=== PATIENT | female | born 1940 | race Caucasian/White ===

== ENCOUNTER → 2017-08-24 13:52 | Outpatient (CLI) | payer MEDICARE, OTHER, SELFPAY ==
--- NOTE | 2017-08-24 14:36 | BI_ITS ---
MAMMOGRAPHY - BILATERAL DIAGNOSTIC REASON FOR EXAM: Female, 76 years old. Prior left lumpectomy. PERTINENT HISTORY: Personal history of breast cancer. TECHNIQUE: Digital bilateral breast killian (3D mammographic acquisition) in the CC and MLO projections. 2-D mediolateral oblique (MLO) and craniocaudad (CC) views of both breasts were obtained. CAD: Full Field Digital Mammography with Computer Added Detection was performed. COMPARISON: Comparison is made with prior examination dated April 28, 2016. FINDINGS: Breast Composition: The breasts are extremely dense, which lowers the sensitivity of mammography. Stable calcifications in the upper outer quadrant of the right breast. Since prior study, the patient underwent resection of the calcifications in the upper medial portion of the right breast. No new cluster is seen. No other significant abnormalities are identified. BI/DIAG MAMM W/CAD, BILAT IMPRESSION: Status post left lumpectomy. No new calcification is seen. Stable appearance of the right calcifications. ASSESSMENT CATEGORY: BIRADS Category 2: Benign. A letter regarding these results will be sent to the patient by the facility within 30 days. Approximately 10% of breast cancers are not detected by mammography. A normal mammogram should not delay biopsy of a clinically suspicious abnormality. Electronically Signed: Zak Gutierrez MD at 15:41 EDT Tel [phone], Service support ,
== END ==
PROVIDERS: Family Provider Family Medicine; PCP Family Medicine; Visit Provider Surgery
DX: Z85.3 Personal history of malignant neoplasm of breast (principal)
CPT/HCPCS: 77062; 77066; G0279

== ENCOUNTER → 2017-09-02 14:55 | Outpatient (CLI) | payer MEDICARE, OTHER, SELFPAY ==
--- NOTE | 2017-09-02 14:56 | CDU_ITS ---
Reason For Study: Carotid stenosis Rt. Velocities/BP Lt. Velocities/BP Prox CCA 82.1/14.7 cm/sec. Prox CCA 80.7/13.2 cm/sec. Mid CCA 90.3/19.9 cm/sec. Mid CCA 94.4/12.9 cm/sec. Dist CCA 77.4/20.5 cm/sec. Dist CCA 75.8/19.4 cm/sec. Prox ICA 59.2/17.0 cm/sec. Prox ICA 57.5/16.6 cm/sec. Mid ICA 76.2/21.1 cm/sec. Mid ICA 60.8/20.4 cm/sec. Dist ICA 180.0/41.8 cm/sec. Dist ICA 211.0/60.2 cm/sec. Rt. ICA/CCA = 2.0. Lt. ICA/CCA = 2.2. Prox ECA 80.9/15.2 cm/sec. Prox ECA 89.1/16.0 cm/sec. Rt. Vert. 65.1/19.3 cm/sec. Lt. Vert. 44.0/15.2 cm/sec. Right Extracranial There is intimal thickening but no significant atherosclerotic plaque noted in the right common carotid artery. There is intimal thickening but no significant atherosclerotic plaque noted in the right internal carotid artery. There is intimal thickening but no significant atherosclerotic plaque noted in the right external carotid artery. Antegrade flow is noted in the right vertebral artery. Left Extracranial There is intimal thickening but no significant atherosclerotic plaque noted in the left common carotid artery. There is intimal thickening but no significant atherosclerotic plaque noted in the left internal carotid artery. There is intimal thickening but no significant atherosclerotic plaque noted in the left external carotid artery. Antegrade flow is noted in the left vertebral artery. Procedure Carotid Duplex [id number]. Exam performed in department. Interpretation Summary No hemodynamically significant plague or stenosis bilateral internal carotids with <50% stenosis. Increased velocities distal bilateral internal carotids without significant plague possibly secondary to tortuosity. Normal flow bilateral external carotids Patent and antegrade vertebrals bilaterally. Ordering Physician: Alfonso Castillo Referring Physician: Dexter Leon Performed By: Estrellita Murphy RVT
== END ==
PROVIDERS: Family Provider Family Medicine; PCP Family Medicine; Visit Provider Surgery
DX: I65.23 Occlusion and stenosis of bilateral carotid arteries (principal)
CPT/HCPCS: 93880

== ENCOUNTER → 2018-03-27 08:01 | Outpatient (CLI) | payer MEDICARE, OTHER, SELFPAY ==
[2016-07-29 10:47] VITALS: BMI 20.9
[2018-03-27 08:46] LABS: Absolute Lymphocyte Count 1.66 X10^3/ul (0.83-4.51); Absolute Neutrophil Count 2.1 X10^3/uL (2.0-7.7); Basophil# 0.02 X10^3/uL; Basophil% 0.5 % (0-1); Eosinophil# 0.07 X10^3/uL; Eosinophils% 1.7 % (0-5); Hematocrit 36.2 % (37-47); Hemoglobin 11.7 g/dl (12.0-15.0); Lymphocyte # 1.66 X10^3/ul (4.0); Lymphocyte % 39.8 % (19-41); Mean Corp Hgb Conc 32.3 g/gl (32-36); Mean Corpuscular Hgb 29.8 pg (27.0-32.0); Mean Corpuscular Volume 92.1 fL (81-99); Mean Platelet Vol. 9.3 fl (6.2-12.0); Monocyte# 0.28 X10^3/uL; Monocyte% 6.7 % (0-10); Neutrophil # 2.14 X10^3/uL (2.7-7.7); Neutrophil % 51.3 % (47-70); Platelet Count 198 K/mm3 (150-450); RBC Distribution Width CV 12.8 % (11.6-14.6); RBC Distribution Width SD 43.2 fl (35.1-43.9); Red Blood Count 3.93 M/mm3 (4.2-5.4); White Blood Count 4.2 K/mm3 (4.4-11.0)
[2018-03-27 08:56] LABS: POSITIVE COUNT NO; POSITIVE DIFFERENTIAL NO; POSITIVE MORPHOLOGY NO
[2018-03-27 09:20] LABS: ALB/GLOB Ratio 1.1 RATIO (0.9-2.4); AST(SGOT) 16 U/L (15-37); Alanine Aminotransfer ALT/SGPT 21 U/L (13-56); Albumin, Serum 3.6 g/dL (3.2-5.0); Alkaline Phosphatase 63 U/L (45-117); Anion Gap 4 (5-15); BUN 14 mg/dL (7-18); BUN/Creat Ratio 19.4 RATIO (10-20); Calcium,Total 8.3 mg/dL (8.5-10.1); Chloride 111 mmol/L (98-107); Cholesterol 178 mg/dL (200); Creatinine, Serum 0.72 mg/dL (0.55-1.02); EST Glomerular Filtration Rate 84 mL/min (>60); Est Glom Filt Rate - Afr Amer 102 mL/min (>60); Globulin 3.2 g/dL (2.2-4.2); Glucose 87 mg/dL (74-106); High Density Lipoprotein 71 mg/dL; Potassium 3.8 mmol/L (3.5-5.1); Protein, Total 6.8 g/dL (6.4-8.2); Sodium Level 143 mmol/L (136-145); Triglycerides 84 mg/dL; Very Low Density Lipoprotein 17 mg/dL (5-40)
[2018-03-27 12:54] LABS: Vitamin D,25 Hydroxy 60.9 ng/mL (29.95-100.01)
== END ==
PROVIDERS: Family Provider Family Medicine; PCP Family Medicine; Referring Provider Family Medicine; Visit Provider Family Medicine
DX: Z00.01 Encounter for general adult medical examination with abnormal findings (principal); D05.12 Intraductal carcinoma in situ of left breast; M81.0 Age-related osteoporosis without current pathological fracture
CPT/HCPCS: 36415; 80053; 80061; 82306; 85025

== ENCOUNTER → 2018-06-03 15:41 | Outpatient (CLI) | payer MEDICARE, OTHER, SELFPAY ==
--- NOTE | 2018-06-03 15:51 | BD_ITS ---
STUDY: DUAL ENERGY X-RAY ABSORPTIOMETRY / DXA REASON FOR EXAM: Female, 77 years old. The patient is postmenopausal. Loss of height. TECHNIQUE: Bone Mineral Density (BMD) measurements of lumbar spine and bilateral hips were obtained. COMPARISON: None. FINDINGS: Lumbar Spine (L1-L4): g/cm2 (1.070) / T-score (-0.8) / Z-score (0.9) Findings are suggestive of normal bone density with a low fracture risk. Left Femur Total: g/cm2 (0.761) / T-score (-2.0) / Z-score (-0.2) Left Femoral Neck: g/cm2 (0.666) / T-score (-2.7) / Z-score (-0.7) Right Femur Total: g/cm2 (0.761) / T-score (-2.0) / Z-score (-0.2) Right Femoral Neck: g/cm2 (0.731) / T-score (-2.2) / Z-score (-0.3) BD/Dexa Bone Density Study IMPRESSION: The patient is considered osteoporotic as outlined below according to World Jeffry Organization (WHO) criteria with a high fracture risk. Reference Information: The T-score is the number of standard deviations above or below the standard which is normal for young adults at their peak bone mineral density. The World Health Organization (WHO) interprets the T-scores as follows: Above -1 Normal bone density Between -1 and -2.5 Osteopenia Equal to / or below -2.5 Osteoporosis As a practical clinical guideline, osteopenia may be graded as follows: Mild -1 through -1.5 Moderate -1.6 through -2.0 Severe -2.1 through -2.4 The Z-score is the number of standard deviations above or below age-matched controls. A Z-score of less than -1.5 would be considered abnormal. References: 1. NIH Osteoporosis and Related Bone Diseases http://www.osteo.org 2. International Society for Clinical Densitometry http://www.iscd.org 3. National Osteoporosis Foundation http://www.nof.org Electronically Signed: Zak Gutierrez MD at 10:29 EST , Service support ,
== END ==
PROVIDERS: Family Provider Family Medicine; PCP Family Medicine; Referring Provider Family Medicine; Visit Provider Family Medicine
DX: M81.0 Age-related osteoporosis without current pathological fracture (principal)
CPT/HCPCS: 77080

== ENCOUNTER 2018-06-22 19:24 | Emergency (ER) | payer MEDICARE, OTHER, SELFPAY ==
[2018-06-22 19:25] VITALS: BP 162/102; PULSE 89; RESP 17; TEMP 36.9; O2SAT 98; BMI 22.6
--- NOTE | 2018-06-22 19:33 | EKG12_ITS ---
Test Reason : Blood Pressure : / mmHG Vent. Rate : 096 BPM Atrial Rate : 096 BPM P-R Int : 128 ms QRS Dur : 078 ms QT Int : 334 ms P-R-T Axes : 064 059 058 degrees QTc Int : 421 ms Normal sinus rhythm Nonspecific ST abnormality Abnormal ECG Confirmed by CLAUDE LEVINE, CAIN ([id number]), photograph editor JULIO AVENDAÑO ([id number]) on 06/25/2018 9:08:34 AM Referred By: ERROL Confirmed By:CAIN ARCE MD
[2018-06-22 20:29] LABS: Bacteria 0 SEEN /hpf (None Seen); Mucous, Urine 0 SEEN /hpf (<or=2+); Red Blood Cells-Urine 0 SEEN /hpf (0-5); Squamous Epithelial Cells - UA 0 SEEN /hpf (5-10)
[2018-06-22 20:35] LABS: Color, Urine Yellow (Yellow); Glucose, Dipstick Normal (Normal); Ketone-Dipstick Negative (Negative); Leukocyte Esterase-Dipstick 500 /ul (Negative); Nitrite-Dipstick Negative (Negative); Occult Blood-Urine 10 /ul (Negative); Protein-Dipstick Negative (Negative); Urine Bilirubin Dipstick Negative (Negative); Urine Clarity Clear (Clear); Urine Urobilinogen Normal (Normal)
[2018-06-22 20:40] LABS: White Blood Cells 5-10 SEEN /hpf (0-5)
--- NOTE | 2018-06-22 20:43 | ED.DCSUM_ITS ---
- ER Visit Summary Date of Service: 06/22/18 Chief Complaint: [Abdominal pain] History of Present Illness: The patient is a 77 F [presents to the emergency department with complaint of abdominal pain that started around 6 PM. Patient states that she had finished eating dinner and was in a wrap some presents when she developed sudden onset of upper abdomen pain. Patient states it was a sharp and stabbing pain that then would resolve and would return intermittently. Patient states the symptoms lasted about 15-20 minutes and then resolved. Patient's not had pain now for the last half hour. Patient was debated if she should come into the ER to be evaluated and she was worried that if the rows were bad tonight she would have a harder time coming in. Patient denies any fever. She denies urinary symptoms. She denies vomiting or diarrhea. Patient has had prior appendectomy and prior hysterectomy.] Physical Examination: [HEENT-PERRLA, EOMI. Cranial nerves II through XII grossly intact. TMs clear. Mucous membranes moist. No adenopathy. Cardiovascular-regular rate and rhythm without murmur or ectopy Lungs-clear to auscultation, chest wall stable without crepitus or subcu emphysema Abdomen-normoactive bowel sounds, soft, nontender, no rebound or rigidity, no peritoneal signs. Extremities-intact ?4, normal range of motion, normal pulses, atraumatic] Test Results: [None indicated] Emergency Department Course and Treatment: [I had a discussion with patient and her and offered to obtain some basic blood work and possibly imaging although I felt this would be very low yield given that her pain is completely resolved and her abdominal exam is benign. Patient would prefer to hold off on any testing at this point and states that if her symptoms return she will return to the emergency department.] Treatment Plan: [Follow-up with primary care physician as needed] Disposition: [Discharged home in stable condition] Impression: [Abdominal [id number] uncertain] This note was generated with [employer] dictation software. It may contain incorrect words, spelling, and punctuation that were not noted in review of the chart prior to signing ED Disposition - Plan for ED Patient: Referrals: Dexter Leon DO [Primary Care Provider] -
--- NOTE | 2018-06-22 20:43 | ED.DEP ---
ED Disposition - Plan for ED Patient: Instructions: ED Abdominal Pain Unkn Cause Referrals: Dexter Leon DO [Primary Care Provider] - As Needed
[2018-06-22 20:53] VITALS: BP 175/84; PULSE 90; RESP 14; O2SAT 98
== END 2018-06-22 20:58 | disposition home or self-care (01) ==
LOC: ED 20:43
PROVIDERS: Emergency Provider Emergency Medicine; Family Provider Family Medicine; PCP Family Medicine
DX: R10.10 Upper abdominal pain, unspecified (principal)
CPT/HCPCS: 81001; 93005; 99282

== ENCOUNTER → 2018-09-03 10:37 | Outpatient (CLI) | payer MEDICARE, OTHER, SELFPAY ==
--- NOTE | 2018-09-03 10:38 | BI_ITS ---
MAMMOGRAPHY - BILATERAL SCREENING 3-D TOMOSYNTHESIS REASON FOR EXAM: Female, 77 years old. Bilateral Screening 3-D tomosynthesis PERTINENT HISTORY: No significant family history. TECHNIQUE: 2-D mammograms and 3-D Tomosynthesis of the breast (s) were performed. CAD was performed. COMPARISON: 08/24/2017 FINDINGS: The breast composition is heterogeneously dense that can obscure small breast masses. Scattered benign calcifications are seen. No dense spiculated masses or suspicious microcalcifications are identified. No architectural distortion is identified. There is no skin thickening or retraction. There has been no significant change since the prior study. BI/SCREENING MAMM (CAD), BILAT IMPRESSION: No mammographic signs of malignancy. Routine yearly mammograms recommended. ASSESSMENT CATEGORY: BIRADS Category 2: Benign. A letter regarding these results will be sent to the patient by the facility within 30 days. FOLLOW UP RECOMMENDATION: Yearly follow up mammogram recommended. (A) Approximately 10% of breast cancers are not detected by mammography. A normal mammogram should not delay biopsy of a clinically suspicious abnormality. Electronically Signed: Sj Cheek MD at 13:14 EDT , Service support ,
[2018-09-10 12:40] VITALS: BMI 22.6
== END ==
PROVIDERS: Family Provider Family Medicine; PCP Family Medicine; Referring Provider Family Medicine; Visit Provider Surgery
DX: Z12.31 Encounter for screening mammogram for malignant neoplasm of breast (principal)
CPT/HCPCS: 77067

== ENCOUNTER → 2018-10-01 09:54 | Outpatient (CLI) | payer MEDICARE, OTHER, SELFPAY ==
[2018-09-10 12:40] VITALS: BMI 22.6
--- NOTE | 2018-10-01 09:57 | CDU_ITS ---
Reason For Study: stenosis Rt. Velocities/BP Lt. Velocities/BP Prox CCA 82.0/14.9 cm/sec. Prox CCA 94.4/13.4 cm/sec. Mid CCA 93.0/18.2 cm/sec. Mid CCA 85.8/17.1 cm/sec. Dist CCA 65.5/18.2 cm/sec. Dist CCA 65.0/12.2 cm/sec. Prox ICA 54.8/16.4 cm/sec. Prox ICA 69.1/17.5 cm/sec. Mid ICA 73.5/17.5 cm/sec. Mid ICA 83.4/24.1 cm/sec. Dist ICA 158.2/37.6 cm/sec. Dist ICA 109.4/32.7 cm/sec. Rt. ICA/CCA = 158.2/93.0=1.7. Lt. ICA/CCA = 109.4/94.4=1.2. Prox ECA 105.1/13.0 cm/sec. Prox ECA 109.4/10.8 cm/sec. Rt. Vert. 61.3/12.2 cm/sec. Lt. Vert. 52.6/17.5 cm/sec. Right Extracranial There is homogeneous, smooth atherosclerotic plaque noted in the right common carotid artery. There is homogeneous, smooth atherosclerotic plaque noted in the right internal carotid artery. There is heterogeneous, smooth atherosclerotic plaque noted in the right external carotid artery. Antegrade flow is noted in the right vertebral artery. Left Extracranial There is homogeneous, smooth atherosclerotic plaque noted in the left common carotid artery. There is homogeneous, smooth atherosclerotic plaque noted in the left internal carotid artery. There is intimal thickening but no significant atherosclerotic plaque noted in the left external carotid artery. Antegrade flow is noted in the left vertebral artery. Procedure Carotid Duplex [id number]. Exam performed in department. Interpretation Summary Minimal smooth plague at the proximal right internal carotid with 50-69% stenosis based upon distal velocities without plague at that location <50% stenosis right external carotid Minimal smooth plague at the proximal left internal carotid with <50% stenosis. <50% stenosis left external carotid Patent and antegrade vertebrals bilaterally Ordering Physician: Alfonso Castillo Referring Physician: Dexter Leon Performed By: Candida Lau, MILLER, RVT
== END ==
PROVIDERS: Family Provider Family Medicine; PCP Family Medicine; Referring Provider Surgery; Visit Provider Surgery
DX: I65.23 Occlusion and stenosis of bilateral carotid arteries (principal)
CPT/HCPCS: 93880

== ENCOUNTER → 2019-04-23 07:58 | Outpatient (CLI) | payer MEDICARE, OTHER, SELFPAY ==
[2018-09-10 12:40] VITALS: BMI 22.6
[2019-04-23 08:36] LABS: Absolute Neutrophil Count 3.1 X10^3/uL (2.0-7.7); Basophil# 0.02 X10^3/uL; Basophil% 0.4 % (0-1); Eosinophil# 0.06 X10^3/uL; Eosinophils% 1.2 % (0-5); Hematocrit 37.7 % (37-47); Hemoglobin 12.6 g/dL (12.0-15.0); Lymphocyte % 29.5 % (19-41); Mean Corp Hgb Conc 33.4 g/dL (32-36); Mean Corpuscular Hgb 30.8 pg (27.0-32.0); Mean Corpuscular Volume 92.2 fL (81-99); Mean Platelet Vol. 9.3 fl (6.2-12.0); Monocyte# 0.37 X10^3/uL; Monocyte% 7.3 % (0-10); NRBC Flagged by Analyzer 0 % (0-5); Neutrophil # 3.13 X10^3/uL (2.7-7.7); Neutrophil % 61.4 % (47-70); Platelet Count 208 K/mm3 (150-450); RBC Distribution Width CV 12.8 % (11.6-14.6); RBC Distribution Width SD 43.5 fl (35.1-43.9); Red Blood Count 4.09 M/mm3 (4.2-5.4); White Blood Count 5.1 K/mm3 (4.4-11.0)
[2019-04-23 09:10] LABS: ALB/GLOB Ratio 1.2 RATIO (0.9-2.4); AST(SGOT) 17 U/L (15-37); Alanine Aminotransfer ALT/SGPT 22 U/L (13-56); Albumin, Serum 3.9 g/dL (3.2-5.0); Alkaline Phosphatase 62 U/L (45-117); Anion Gap 2 (5-15); BUN 13 mg/dL (7-18); BUN/Creat Ratio 17.8 RATIO (10-20); Calcium,Total 8.5 mg/dL (8.5-10.1); Chloride 109 mmol/L (98-107); Cholesterol 211 mg/dL (200); Creatinine, Serum 0.73 mg/dL (0.55-1.02); EST Glomerular Filtration Rate 82 mL/min (>60); Est Glom Filt Rate - Afr Amer 100 mL/min (>60); Globulin 3.2 g/dL (2.2-4.2); Glucose 91 mg/dL (74-106); High Density Lipoprotein 74 mg/dL; Potassium 3.7 mmol/L (3.5-5.1); Protein, Total 7.1 g/dL (6.4-8.2); Sodium Level 141 mmol/L (136-145); Triglycerides 108 mg/dL; Very Low Density Lipoprotein 22 mg/dL (5-40)
[2019-04-25 09:37] LABS: Vitamin D,25 Hydroxy 59.2 ng/mL (29.95-100.01)
== END ==
PROVIDERS: Family Provider Family Medicine; PCP Family Medicine; Referring Provider Family Medicine; Visit Provider Family Medicine
DX: M81.0 Age-related osteoporosis without current pathological fracture (principal); I10 Essential (primary) hypertension; I77.9 Disorder of arteries and arterioles, unspecified
CPT/HCPCS: 36415; 80053; 80061; 82306; 85025

== ENCOUNTER → 2019-09-09 10:20 | Outpatient (CLI) | payer MEDICARE, OTHER, SELFPAY ==
[2018-09-10 12:40] VITALS: BMI 22.6
--- NOTE | 2019-09-09 10:21 | BI_ITS ---
MAMMOGRAPHY - BILATERAL SCREENING REASON FOR EXAM: Female, 78 years old. Routine annual screening examination. PERTINENT HISTORY: Personal history of breast cancer. Prior left lumpectomy and left excisional breast biopsy. TECHNIQUE: Digital bilateral breast heide (3D mammographic acquisition) in the CC and MLO projections. 2-D mediolateral oblique (MLO) and craniocaudad (CC) views of both breasts were obtained. CAD: Full Field Digital Mammography with Computer Added Detection was performed. COMPARISON: Comparison is made with prior examination dated September 03, 2018 and August 25, 2007. FINDINGS: Breast Composition: The breasts are heterogeneously dense, which may obscure small masses. There are no dominant masses or suspicious calcifications. Stable macrocalcifications in the upper slightly lateral aspect of the right breast. No other significant abnormalities are identified. There has been no significant change since the prior study. BI/SCREEN MAMM (CAD) W/HEIDE BILAT IMPRESSION: Stable bilateral screening mammogram. Yearly follow-up mammogram recommended. (A) ASSESSMENT CATEGORY: BIRADS Category 2: Benign. A letter regarding these results will be sent to the patient by the facility within 30 days. Approximately 10% of breast cancers are not detected by mammography. A normal mammogram should not delay biopsy of a clinically suspicious abnormality. [id number] Electronically Signed: Zak Gutierrez, at 11:22 EDT , Service support ,
== END ==
PROVIDERS: PCP Family Medicine; Referring Provider Surgery; Visit Provider Surgery
DX: Z12.31 Encounter for screening mammogram for malignant neoplasm of breast (principal)
CPT/HCPCS: 77063; 77067

== ENCOUNTER → 2020-04-21 07:22 | Outpatient (CLI) | payer MEDICARE, OTHER, SELFPAY ==
[2019-11-25 06:10] VITALS: BMI 22.6
[2020-04-21 08:11] LABS: Absolute Lymphocyte Count 1.59 X10^3/uL (0.83-4.51); Absolute Neutrophil Count 2.9 X10^3/uL (2.0-7.7); Basophil# 0.02 X10^3/uL; Basophil% 0.4 % (0-1); Eosinophil# 0.11 X10^3/uL; Eosinophils% 2.2 % (0-5); Hematocrit 36.5 % (37-47); Lymphocyte # 1.59 X10^3/ul (4.0); Lymphocyte % 31.7 % (19-41); Mean Corp Hgb Conc 32.9 g/dL (32-36); Mean Corpuscular Hgb 30.3 pg (27.0-32.0); Mean Corpuscular Volume 92.2 fL (81-99); Mean Platelet Vol. 9.3 fl (6.2-12.0); NRBC Flagged by Analyzer 0 % (0-5); Neutrophil # 2.89 X10^3/uL (2.7-7.7); Neutrophil % 57.5 % (47-70); Platelet Count 220 K/mm3 (150-450); RBC Distribution Width CV 12.9 % (11.6-14.6); RBC Distribution Width SD 43.8 fl (35.1-43.9); Red Blood Count 3.96 M/mm3 (4.2-5.4)
[2020-04-21 08:24] LABS: ALB/GLOB Ratio 1.2 RATIO (0.9-2.4); AST(SGOT) 12 U/L (15-37); Alanine Aminotransfer ALT/SGPT 21 U/L (13-56); Albumin, Serum 3.7 g/dL (3.2-5.0); Alkaline Phosphatase 73 U/L (45-117); Anion Gap 2 (5-15); BUN 16 mg/dL (7-18); BUN/Creat Ratio 23.4 RATIO (10-20); Calcium,Total 8.7 mg/dL (8.5-10.1); Chloride 111 mmol/L (98-107); Cholesterol 196 mg/dL (200); Creatinine, Serum 0.68 mg/dL (0.55-1.02); EST Glomerular Filtration Rate 88 mL/min (>60); Est Glom Filt Rate - Afr Amer 107 mL/min (>60); Globulin 3.1 g/dL (2.2-4.2); Glucose 91 mg/dL (74-106); High Density Lipoprotein 73 mg/dL; Potassium 3.7 mmol/L (3.5-5.1); Protein, Total 6.8 g/dL (6.4-8.2); Sodium Level 144 mmol/L (136-145); Triglycerides 96 mg/dL; Very Low Density Lipoprotein 19 mg/dL (5-40)
[2020-04-23 08:33] LABS: Vitamin D,25 Hydroxy 66.2 ng/mL
== END ==
PROVIDERS: PCP Family Medicine; Referring Provider Family Medicine; Visit Provider Family Medicine
DX: M81.0 Age-related osteoporosis without current pathological fracture (principal); I65.29 Occlusion and stenosis of unspecified carotid artery; Z51.81 Encounter for therapeutic drug level monitoring
CPT/HCPCS: 36415; 80053; 80061; 82306; 85025

== ENCOUNTER → 2020-04-27 13:34 | Outpatient (CLI) | payer MEDICARE, OTHER, SELFPAY ==
[2019-11-25 06:10] VITALS: BMI 22.6
--- NOTE | 2020-04-27 13:37 | CDU_ITS ---
Reason For Study: Carotid Bruit Rt. Velocities/BP Lt. Velocities/BP Prox CCA 88/17 cm/sec. Prox CCA 147/16 cm/sec. Mid CCA 92/20 cm/sec. Mid CCA 84/11 cm/sec. Dist CCA 74/13 cm/sec. Dist CCA 78/18 cm/sec. Prox ICA 68/12 cm/sec. Prox ICA 60/8 cm/sec. Mid ICA 89/15 cm/sec. Mid ICA 56/11 cm/sec. Dist ICA 118/32 cm/sec. Dist ICA 127/26 cm/sec. Rt. ICA/CCA = 1.3. Lt. ICA/CCA = 1.5. Prox ECA 136/21 cm/sec. Prox ECA 109/11 cm/sec. Rt. Vert. 80/14 cm/sec. Lt. Vert. 40/10 cm/sec. Right Extracranial There is intimal thickening but no significant atherosclerotic plaque noted in the right common carotid artery. There is heterogeneous, irregular atherosclerotic plaque noted in the right internal carotid artery. The right internal carotid artery is very tortuous. There is heterogeneous, irregular atherosclerotic plaque noted in the right external carotid artery. Antegrade flow is noted in the right vertebral artery. Left Extracranial There is intimal thickening but no significant atherosclerotic plaque noted in the left common carotid artery. There is homogeneous, irregular atherosclerotic plaque noted in the left internal carotid artery. The left internal carotid artery is very tortuous. There is heterogeneous, irregular atherosclerotic plaque noted in the left external carotid artery. Antegrade flow is noted in the left vertebral artery. Procedure Carotid Duplex [id number]. Exam performed in department. Interpretation Summary Mild (<50%) stenosis right extracranial internal carotid. Mild (<50%) stenosis left extracranial internal carotid. Flow within the vertebral arteries is antegrade bilaterally. Ordering Physician: Dexter Leon Referring Physician: Dexter Leon Performed By: Sharon Hand, RDCS, RVT
== END ==
PROVIDERS: PCP Family Medicine; Referring Provider Family Medicine; Visit Provider Family Medicine
DX: I65.23 Occlusion and stenosis of bilateral carotid arteries (principal)
CPT/HCPCS: 93880

== ENCOUNTER → 2021-04-27 07:44 | Outpatient (CLI) | payer MEDICARE, OTHER, SELFPAY ==
[2021-04-27 08:02] LABS: Absolute Lymphocyte Count 1.47 X10^3/uL (0.83-4.51); Absolute Neutrophil Count 2.9 X10^3/uL (2.0-7.7); Basophil# 0.04 X10^3/uL; Basophil% 0.8 % (0-1); Eosinophil# 0.16 X10^3/uL; Eosinophils% 3.2 % (0-5); Hematocrit 37.3 % (37-47); Hemoglobin 12.2 g/dL (12.0-15.0); Lymphocyte # 1.47 X10^3/ul (0.83-4.51); Lymphocyte % 29.6 % (19-41); Mean Corp Hgb Conc 32.7 g/dL (32-36); Mean Corpuscular Hgb 30.2 pg (27.0-32.0); Mean Corpuscular Volume 92.3 fL (81-99); Mean Platelet Vol. 8.9 fl (6.2-12.0); Monocyte# 0.34 X10^3/uL; Monocyte% 6.9 % (0-10); NRBC Flagged by Analyzer 0 % (0-5); Neutrophil # 2.94 X10^3/uL (2.7-7.7); Neutrophil % 59.3 % (47-70); Platelet Count 212 K/mm3 (150-450); RBC Distribution Width CV 12.3 % (11.6-14.6); RBC Distribution Width SD 41.8 fl (35.1-43.9); Red Blood Count 4.04 M/mm3 (4.2-5.4)
[2021-04-27 08:53] LABS: AST(SGOT) 14 U/L (15-37); Alanine Aminotransfer ALT/SGPT 22 U/L (13-56); Albumin, Serum 3.5 g/dL (3.2-5.0); Alkaline Phosphatase 64 U/L (45-117); Anion Gap 6 (5-15); BUN 18 mg/dL (7-18); BUN/Creat Ratio 24.4 RATIO (10-20); Calcium,Total 8.7 mg/dL (8.5-10.1); Chloride 108 mmol/L (98-107); Cholesterol 197 mg/dL (200); Creatinine, Serum 0.74 mg/dL (0.55-1.02); EST Glomerular Filtration Rate 81 mL/min (>60); Est Glom Filt Rate - Afr Amer 98 mL/min (>60); Globulin 3.5 g/dL (2.2-4.2); Glucose 94 mg/dL (74-106); High Density Lipoprotein 64 mg/dL; Potassium 3.9 mmol/L (3.5-5.1); Sodium Level 143 mmol/L (136-145); Triglycerides 148 mg/dL; Very Low Density Lipoprotein 30 mg/dL (5-40)
[2021-04-29 09:11] LABS: Vitamin B12 687 pg/mL (211-911)
== END ==
PROVIDERS: PCP Family Medicine; Referring Provider Family Medicine; Visit Provider Family Medicine
DX: I65.23 Occlusion and stenosis of bilateral carotid arteries (principal); M81.0 Age-related osteoporosis without current pathological fracture; Z51.81 Encounter for therapeutic drug level monitoring; E53.8 Deficiency of other specified B group vitamins
CPT/HCPCS: 36415; 80053; 80061; 82306; 82607; 85025

== ENCOUNTER → 2021-09-16 | Outpatient (CLI) | payer MEDICARE, OTHER, SELFPAY ==
--- NOTE | 2021-09-16 09:46 | BI_ITS ---
MAMMOGRAPHY - BILATERAL SCREENING REASON FOR EXAM: Female, 80 years old. Routine annual screening examination. PERTINENT HISTORY: Personal history of breast cancer. Prior left lumpectomy. TECHNIQUE: Digital bilateral breast heide (3D mammographic acquisition) in the CC and MLO projections. 2-D mediolateral oblique (MLO) and craniocaudad (CC) views of both breasts were obtained. CAD: Full Field Digital Mammography with Computer Added Detection was performed. COMPARISON: Comparison is made with prior examination dated 09/09/2019 and 09/03/2018. FINDINGS: Breast Composition: The breasts are extremely dense, which lowers the sensitivity of mammography. There are no dominant masses or suspicious calcifications. Stable microcalcifications in the upper slightly lateral aspect of the right breast No other significant abnormalities are identified. There has been no significant change since the prior study. BI/SCRN MAMM (CAD)W/HEIDE BILAT IMPRESSION: Stable bilateral screening mammogram. Yearly follow-up mammogram recommended. (A) ASSESSMENT CATEGORY: BIRADS Category 2: Benign. A letter regarding these results will be sent to the patient by the facility within 30 days. Approximately 10% of breast cancers are not detected by mammography. A normal mammogram should not delay biopsy of a clinically suspicious abnormality. [id number] Electronically Signed: Zak Gutierrez MD at 14:41 EDT ,
== END | disposition home or self-care (01) ==
LOC: OPBI 09:36
PROVIDERS: PCP Family Medicine; Visit Provider Obstetrics & Gynecology
DX: Z12.31 Encounter for screening mammogram for malignant neoplasm of breast (principal); Z85.3 Personal history of malignant neoplasm of breast
CPT/HCPCS: 77063; 77067

== ENCOUNTER → 2022-01-09 | Outpatient (CLI) | payer MEDICARE, OTHER, SELFPAY | END | disposition home or self-care (01) | LOC: LABSPEC 14:59 | PROVIDERS: PCP Family Medicine; Visit Provider Physician Assistant | DX: N39.0 Urinary tract infection, site not specified (principal) | CPT/HCPCS: 87086; 87088; 87186 ==

== ENCOUNTER → 2022-04-26 | Outpatient (CLI) | payer MEDICARE, OTHER, SELFPAY ==
[2022-04-26 09:23] LABS: Absolute Lymphocyte Count 1.44 X10^3/uL (0.83-4.51); Basophil# 0.04 X10^3/uL; Basophil% 0.8 % (0-1); Eosinophil# 0.12 X10^3/uL; Eosinophils% 2.4 % (0-5); Hematocrit 38.6 % (37-47); Hemoglobin 12.4 g/dL (12.0-15.0); Lymphocyte # 1.44 X10^3/ul (0.83-4.51); Lymphocyte % 28.6 % (19-41); Mean Corp Hgb Conc 32.1 g/dL (32-36); Mean Corpuscular Hgb 29.6 pg (27.0-32.0); Mean Corpuscular Volume 92.1 fL (81-99); Mean Platelet Vol. 9.6 fl (6.2-12.0); Monocyte# 0.39 X10^3/uL; Monocyte% 7.8 % (0-10); NRBC Flagged by Analyzer 0 % (0-5); Neutrophil # 3.02 X10^3/uL (2.7-7.7); Platelet Count 215 K/mm3 (150-450); RBC Distribution Width CV 12.9 % (11.6-14.6); RBC Distribution Width SD 43.1 fl (35.1-43.9); Red Blood Count 4.19 M/mm3 (4.2-5.4)
[2022-04-26 09:48] LABS: ALB/GLOB Ratio 1.1 RATIO (0.9-2.4); AST(SGOT) 12 U/L (15-37); Alanine Aminotransfer ALT/SGPT 22 U/L (13-56); Albumin, Serum 3.7 g/dL (3.2-5.0); Alkaline Phosphatase 58 U/L (45-117); Anion Gap 4 (5-15); BUN 18 mg/dL (7-18); BUN/Creat Ratio 25.1 RATIO (10-20); Chloride 107 mmol/L (98-107); Cholesterol 192 mg/dL (200); Creatinine, Serum 0.72 mg/dL (0.55-1.02); EST Glomerular Filtration Rate 83 mL/min (>60); Est Glom Filt Rate - Afr Amer 101 mL/min (>60); Globulin 3.4 g/dL (2.2-4.2); Glucose 90 mg/dL (74-106); High Density Lipoprotein 70 mg/dL; Potassium 3.7 mmol/L (3.5-5.1); Protein, Total 7.1 g/dL (6.4-8.2); Sodium Level 141 mmol/L (136-145); Triglycerides 121 mg/dL; Very Low Density Lipoprotein 24 mg/dL (5-40)
[2022-04-28 07:54] LABS: Vitamin D,25 Hydroxy 73.7 ng/mL
== END | disposition home or self-care (01) ==
PROVIDERS: PCP Family Medicine; Visit Provider Family Medicine
DX: Z51.81 Encounter for therapeutic drug level monitoring (principal); D64.9 Anemia, unspecified; E78.5 Hyperlipidemia, unspecified; M81.0 Age-related osteoporosis without current pathological fracture
CPT/HCPCS: 36415; 80053; 80061; 82306; 85025

== ENCOUNTER 2022-10-14 05:22 | Day surgery (SDC) | payer MEDICARE, OTHER, SELFPAY ==
--- NOTE | 2022-10-14 | COLBX_PTH ---
PATIENT: JEREMY FRANCO LOC: EN U#:[id number] AGE/SX: 81/F ROOM: RE10/14/[address]: Dr. Viraj Ornelas DO : 1940 BED: DIS: 10/14/2022 SPEC #: [id number] RECD: 10/14/22 10:37 STATUS: EDSON YOANA #: [id number] RAYO: 10/14/22 00:[address]: Viraj Ornelas DEPT: SURGICAL PATHOLOGY RECD BY: Nasim Teresa ENTERED: 10/14/22 10:38 SP TYPE: COLON BX OTHR DR: Dr. Dexter Leon, Tissues: A - COLON BIOPSY B - Ascending colon Procedures: Surgery Specimen Level IV HEADER OPERATION: Colonoscopy (MAC) PRE-OP DIAGNOSIS: Diverticulosis of colon TISSUE SUBMITTED: A ? Hepatic flexure polyp, B ? Ascending colon polyp MICROSCOPIC DIAGNOSIS A. Hepatic flexure polyp, biopsy: Fragments of tubular adenoma. B. Ascending colon polyp, biopsy: Fragments of tubular adenoma. VINNY:lorelei 10/15/2022 MICROSCOPIC DESCRIPTION Slides are reviewed. GROSS DESCRIPTION A - Received in fixative is one container labeled with the patient's name and designated hepatic flexure polyp. The specimen consists of multiple irregular fragments of light chase soft tissue mixed with fecal material that in aggregate measure 1.5 x 1.0 x 0.3 cm. The specimen is totally submitted in one cassette. B - Received in fixative is one container labeled with the patient's name and designated ascending colon polyp. The specimen consists of two pieces of chase-pink polyp measuring 0.7 x 0.4 x 0.3 cm and 0.5 x 0.4 x 0.3 cm. A few fragments of fecal material are also noted. The specimen is totally submitted in one cassette. / VINNY:lorelei 10/14/2022 TC:1 CPT: 43571 x2
[2022-10-14 05:50] VITALS: BP 176/71; PULSE 93; RESP 16; TEMP 36.6; O2SAT 100; BMI 20.4
[2022-10-14] MEDS: Lactated Ringers 1,000 ML 15 ML IV (05:53)
--- NOTE | 2022-10-14 06:39 | PCM.HP.BLA ---
History and Physical Date of Admission: 10/14/22 JAYNE FRANCO, is a 81 F who presents to the office today to establish with GI in order to schedule screening colonoscopy. Hx of colon polyps. Last colonoscopy 02/[address] Rodriguez at [facility]--diverticulosis in the sigmoid colon; he recommended next colonoscopy in 5 yrs. She has no GI complaints. Denies nausea, vomiting, heartburn, dysphagia, early satiety, abdominal pain, diarrhea, constipation, melena, hematochezia. No hx of diverticulitis. ROS Const Constitutional: No fatigue ENT ENT: No difficulty swallowing Gastro GI: No abdominal pain, belching, bloating, change in bowel habits, change in stool character, coffee ground emesis, constipation, cramping, diarrhea, heartburn, difficulty swallowing, feeling full early, excessive flatus, incontinent of stools, Vomiting blood/hematemesis, Blood in stool, loose stools, Black,tarry stools, nausea/dyspepsia, pain with swallowing, vomiting or other Musc Musculoskeletal: No joint pain Skin Skin: No yellowing of the eye or itchy eyes Psych Psychiatric: No anxiety and No depression Endo Endocrine: No fatigue Aller/Imm Allergy/Immunologic: No itchy eyes Eloy/Lymp Hematologic/Lymphatic: No easy bleeding or easy bruising Exam Const General: cooperative, healthy appearing and comfortable Nutritional Appearance: average body habitus Orientation: alert, awake and oriented x3 HENMT Head: normal to inspection Neck Neck: normal visual inspection Chest Chest palpation & inspection: normal inspection of the chest Resp Effort & Inspection: normal respiratory effort GI Inspection: normal to inspection Psych Mood: euthymic mood Quality Reporting Tobacco Screening ([facility] 138) Smoking Status: Never smoker Assessment and Plan Assessment and Plan (1) Diverticulosis of colon: ?Status:?Acute ?Plan: 81 yr old female with hx of colon polyps, her previous GI recommended repeat colonoscopy in 5 yrs so she is due. Will schedule colonoscopy with office f/u 2 wks later to discuss any biopsy results. (2) Hx of colonic polyps: ?Status:?Acute ?Plan: I have examined the patient and the H&P has been reviewed. There are no clinical changes since date of exam.
[2022-10-14 07:06] VITALS: BP 143/66; BP 176/71; PULSE 73; RESP 16; TEMP 36.1; O2SAT 100
[2022-10-14 07:10] VITALS: BP 143/67; BP 176/71; PULSE 75; RESP 16; O2SAT 100
--- NOTE | 2022-10-14 07:12 | OP.COLON_ITS ---
Patient Name: Alivia Ramsey Procedure Date: 10/14/2022 6:26 AM Date of : 1940 Age: 81 Procedure: Colonoscopy Indications: Follow-up for history of adenomatous polyps in the colon Providers: Viraj Ornelas DO Medicines: Monitored Anesthesia Care Patient Profile: This is a 81 year old female. Refer to note in patient chart for documentation of history and physical. Last Colonoscopy: 3 years ago. Complications: No immediate complications. Procedure: Pre-Anesthesia Assessment: - Prior to the procedure, a History and Physical was performed, and patient medications and allergies were reviewed. The risks and benefits of the procedure and the sedation options and risks were discussed with the patient. All questions were answered and informed consent was obtained. Patient identification and proposed procedure were verified by the physician. Mental Status Examination: normal. Prophylactic Antibiotics: The patient does not require prophylactic antibiotics. Prior Anticoagulants: The patient has taken no previous anticoagulant or antiplatelet agents. ASA Grade Assessment: II - A patient with mild systemic disease. After reviewing the risks and benefits, the patient was deemed in satisfactory condition to undergo the procedure. The anesthesia plan was to use monitored anesthesia care (MAC). Immediately prior to administration of medications, the patient was re-assessed for adequacy to receive sedatives. The heart rate, respiratory rate, oxygen saturations, blood pressure, adequacy of pulmonary ventilation, and response to care were monitored throughout the procedure. The physical status of the patient was re-assessed after the procedure. After I obtained informed consent, the scope was passed under direct vision. Throughout the procedure, the patient's blood pressure, pulse, and oxygen saturations were monitored continuously. The colonoscope was introduced through the anus and advanced to the cecum, identified by appendiceal orifice and ileocecal valve. The colonoscopy was performed without difficulty. The patient tolerated the procedure well. The quality of the bowel preparation was adequate. Scope In: 6:43:25 AM Scope Withdrawal Time 0 hours 6 minutes 20 seconds Scope Out: 7:02:32 AM Total Procedure Duration Time 0 hours 19 minutes 7 seconds Findings: The perianal and digital rectal examinations were normal. Two sessile polyps were found in the hepatic flexure and ascending colon. The polyps were 1 to 2 mm in size. These polyps were removed with a hot snare. Resection and retrieval were complete. Verification of patient identification for the specimen was done. Estimated blood loss was minimal. Multiple small and large-mouthed diverticula were found in the recto-sigmoid colon and sigmoid colon. Impression: - Two 1 to 2 mm polyps at the hepatic flexure and in the ascending colon, removed with a hot snare. Resected and retrieved. - Diverticulosis in the recto-sigmoid colon and in the sigmoid colon. Recommendation: - Discharge patient to home. - Resume previous diet. - Continue present medications. - Await pathology results. - Repeat colonoscopy in 3 years for surveillance. Procedure Code(s): --- Professional --- 26734, Colonoscopy, flexible; with removal of tumor(s), polyp(s), or other lesion(s) by snare technique CPT copyright 2017 [employer]. All rights reserved. The codes documented in this report are preliminary and upon certified medical coder review may be revised to meet current compliance requirements. Viraj Ornelas DO 10/14/2022 7:11:48 AM This report has been signed electronically. Number of Addenda: 0 Note Initiated On: 10/14/2022 6:26 AM
--- NOTE | 2022-10-14 07:13 | OP.CCLET_ITS ---
10/14/2022 Dexter Leon [address] [facility] [place] [address] Re : Colonoscopy procedure for Alivia Ramsey Dear Dr. Leon This procedure was performed on Friday, October 14, 2022. My impressions and recommendations are as follows: Impressions : - Two 1 to 2 mm polyps at the hepatic flexure and in the ascending colon, removed with a hot snare. Resected and retrieved. - Diverticulosis in the recto-sigmoid colon and in the sigmoid colon. Recommendations : - Discharge patient to home. - Resume previous diet. - Continue present medications. - Await pathology results. - Repeat colonoscopy in 3 years for surveillance. My findings are described in the full procedure note, which is enclosed. If I can be of further assistance, please feel free to contact me at . Sincerely, Viraj Ornelas, 10/14/2022 7:11:48 AM This report has been signed electronically.
[2022-10-14 07:15] VITALS: BP 150/72; BP 176/71; PULSE 75; RESP 16; O2SAT 98
[2022-10-14 07:21] VITALS: BP 156/71; BP 176/71; PULSE 81; RESP 16; TEMP 36.5; O2SAT 100
[2022-10-14 07:22] VITALS: BP 176/71
== END 2022-10-14 07:51 | disposition home or self-care (01) ==
LOC: EN 05:23 → AC 05:23
PROVIDERS: PCP Family Medicine; Referring Provider Family Medicine; Visit Provider Internal Medicine Gastroenterology
PROC: 0DJD8ZZ Inspection of Lower Intestinal Tract, Via Natural or Artificial Opening Endoscopic (ICD-10-PCS; CPT 45378; principal; 2022-10-14 06:25)
DX: K57.30 Diverticulosis of large intestine without perforation or abscess without bleeding (principal); K63.5 Polyp of colon; Z86.010 Personal history of colon polyps
CPT/HCPCS: 45385; 88305; J7120; J2405

== ENCOUNTER → 2022-11-13 | Outpatient (CLI) | payer MEDICARE, OTHER, SELFPAY ==
--- NOTE | 2022-11-13 | IMM_PTH ---
PATIENT: JEREMY FRANCO LOC: [facility] U#:[id number] AGE/SX: 81/F ROOM: RE11/13/[address]: Dr. Alfonso Castillo MD : 1940 BED: DIS: 11/13/2022 SPEC #: [id number] RECD: 11/14/22 14:13 STATUS: EDSON REKasia #: [id number] RAYO: 11/13/22 00:[address]: Alfonso Castillo DEPT: IMMUNOHISTOCHEMISTRY RECD BY: Shanell Salgado ENTERED: 11/14/22 14:14 SP TYPE: IMMUNO OTHR DR: Dr. Dexter Leon, Tissues: Left breast, NOS Procedures: CALPONIN-1 (add) CK7 (add) CK8 (add) E-CAD (add) HER2 MEHNAZ (add) NC (add) Pankeratin (add) P40 (add) ER (initial) PHYSICIAN & INSTITUTION [place] [id number] SPECIMEN INFORMATION: Tissue Source: Left breast Clinical Info: Left breast microcalcifications Specimen Number: [id number] #2 CPT code: 79800, 92833 x5, 53927 x3 METHODOLOGY: Deparaffinized sections of prefer/formalin-fixed tissue or PAP/DQ stained slides are incubated with monoclonal/polyclonal antibodies/oligonucleotide probes. Localization is made via biotin free immunoperoxidase method. Appropriate controls are performed and reacted as expected. Results on target cell population are indicated in the following table: RESULTS: ANTIBODY / CLONE RESULT E-Cad (ECH-6) positive CK8 (18xfsrA93) positive, focal & weak Calponin-1 (FA546O) positive in myoepithelial layer P40 (BC28) positive in myoepithelial layer AE1-3 (AE1/AE3/PCK26) positive CK7 (OV-TL12/30) positive MORPHOMETRIC ANALYSIS ER (clone 6F11) negative (0%) NC (clone 16/1E2) negative (0%) Her-2Neu (clone CB11) negative (0) The prognostic test for HER2 is performed on formalin-fixed paraffin embedded tissue. A 3+ (positive) staining pattern is defined as intense, homogeneous, complete, circumferential membranous staining in >10% of contiguous tumor cells. A similar weak (2+) staining pattern is interpreted as equivocal. FRANTZ follow-up testing is recommended for all equivocal cases. Positivity/negativity for ER/NC is reported if > or < 1% of the tumor cells are immuno- reactive, respectively. The ASCO/CAP criteria is used for scoring. Reference: Journal of Clinical Oncology, 2013; 31:5022-9594 & 2010; 16:9763-5501. Duration of fixation: 8.5 Hrs; Sample Adequate: Yes. These assays have not been validated on decalcified tissues. Results should be interpreted with caution given the likelihood of false negativity on decalcified specimens. These tests were developed and their performance characteristics determined by [facility]. They may not have been cleared or approved by the U.S. Food and Drug Administration. The FDA has determined that such clearance or approval is not necessary. The above immunohistochemical/dualISH markers are ordered and reviewed by the Pathologist. INTERPRETATION: Left breast medial microcalcifications, stereotactic core biopsy: Ductal carcinoma in situ. Case has been reviewed in consultation with Dr. Schaeffer who concurs with the above diagnosis. IDC:KATHERINE SJ: 11/18/22
--- NOTE | 2022-11-13 10:38 | PCM.HP.BLA ---
History and Physical Date of Admission: 11/13/22 Is patient in pain?: No Allergies Sulfa (Sulfonamide Antibiotics) Allergy (Verified 11/12/22 13:13) Rash Medications aspirin 81 mg tablet,delayed release 81 mg PO DAILY 06/18/16 [History Confirmed 11/12/22] ascorbic acid (vitamin C) 500 mg capsule 500 mg PO DAILY 09/18/21 [History Confirmed 11/12/22] cholecalciferol (vitamin D3) 50 mcg (2,000 unit) capsule 50 mcg PO DAILY 09/18/21 [History Confirmed 11/12/22] biotin 10,000 mcg chewable tablet (Hair, Skin and Nails (biotin)) 10,000 mcg PO BID 10/08/22 [History Confirmed 11/12/22] coenzyme Q10 100 mg capsule (CoQ-10) 100 mg PO DAILY 10/08/22 [History Confirmed 11/12/22] cranberry fruit concentrate 250 mg chewable tablet (Azo Cranberry) 250 mg PO BID 10/08/22 [History Confirmed 11/12/22] zafsvjvu-knf-gakrmz 5 mg-zeaxanth 1 mg-bilberry 7.5 mg-herbal capsule (Macular Health Formula) 1 cap PO DAILY 10/08/22 [History Confirmed 11/12/22] multivitamin with minerals-folic acid 200 mcg chewable tablet (Multivitamin Gummies) 1 tab PO BID 10/08/22 [History Confirmed 11/12/22] PFSH Medical History Benign neoplasm of colon Cancer Carotid stenosis, bilateral Diverticulosis of colon Ductal carcinoma in situ (DCIS) of left breast History of breast cancer History of stress test Hx of colonic polyps Non-smoker Post-menopausal Recurrent UTI Senile osteoporosis Urinary tract infection with hematuria Wears glasses Surgical History H/O vaginal hysterectomy History of anterior colporrhaphy History of appendectomy Status post left breast lumpectomy Tubal ligation status Family History Mother Cervical cancerFather Heart diseaseBrother Hypertension Heart disease Social History Smoking Status: Never smoker alcohol intake: never HPI HPI HPI: I have recently seen the patient on October 13, 2022 and annual follow-up of left breast DCIS from July 29, 2016. When I saw her October 13 she had not completed her mammographic imaging. She now has those completed and they were done at the [facility]. These were performed on November 05, 2022 and represented diagnostic left mammograms. I have personally reviewed the images. There are grouped pleomorphic calcifications in the left breast inferior medial middle depth BI-RADS Category 4. What is not commented upon is that there appeared to be actually 2 collections at different depths with this in this area of the left breast. My previous notes reflect the following Visit Reasons: POST MAMMOGRAM YEARLY FOLLOWUP Chief Complaint: YEARLY F/U Allergies Sulfa (Sulfonamide Antibiotics) Allergy (Verified 10/08/22 12:06) Rash [facility] Medical History Benign neoplasm of colon Cancer Carotid stenosis, bilateral Diverticulosis of colon Ductal carcinoma in situ (DCIS) of left breast History of breast cancer History of stress test Hx of colonic polyps Non-smoker Post-menopausal Recurrent UTI Senile osteoporosis Urinary tract infection with hematuria Wears glasses Surgical History H/O vaginal hysterectomy History of anterior colporrhaphy History of appendectomy Status post left breast lumpectomy Tubal ligation status Family History Mother Cervical cancerFather Heart diseaseBrother Hypertension Heart disease Social History Smoking Status: Never smoker alcohol intake: never HPI HPI HPI: HPI: JEREMY FRANCO, is a 81 F who presents to the office today for surgical follow-up of DCIS left breast treated July 29, 2016 Previously July 29, 2016 I performed a double wire localization upper inner left breast with excisional biopsy.? Final pathology demonstrated a 1 x 0.5 x 0.5 similar area of DCIS the closest margin being 0.2 cm.? Estrogen receptor was weakly positive at 70%.? Progesterone receptor was negative.? HER-2/elliott was -1+.? HER-2/elliott by FISH not performed.? The patient was seen in consultation by Dr. Francesco Blair.? The patient did not pursue radiation treatment.? She is not currently on any suppressive medications. Patient reports she had her most recent set of mammograms done at the [facility]. It is apparent however that there is some abnormality has been detected and she has been scheduled to return to have follow-up imaging. At this moment I do not have a copy of either the report nor the images. The patient herself has no particular complaints. No breast pain. No focal mass. No nipple discharge or bleeding. She is otherwise enjoying good health status September 16, 2021 MAMMOGRAPHY - BILATERAL SCREENING REASON FOR EXAM:? ? Female, 80 years old.? Routine annual screening examination. PERTINENT HISTORY:? Personal history of breast cancer.? Prior left lumpectomy. TECHNIQUE: ? Digital bilateral breast heide (3D mammographic acquisition) in the CC and MLO projections. 2-D mediolateral oblique (MLO) and craniocaudad (CC) views of both breasts were obtained.? CAD: Full Field Digital Mammography with Computer Added Detection was performed. COMPARISON: ? Comparison is made with prior examination dated 09/09/2019 and 09/03/2018. FINDINGS: Breast Composition:? The breasts are extremely dense, which lowers the sensitivity of mammography. There are no dominant masses or suspicious calcifications.? Stable microcalcifications in the upper slightly lateral aspect of the right breast No other significant abnormalities are identified.? There has been no significant change since the prior study. BI/SCRN MAMM (CAD)W/HEIDE BILAT IMPRESSION: Stable bilateral screening mammogram.? Yearly follow-up mammogram recommended. ? (A) ? ? ASSESSMENT CATEGORY: BIRADS Category 2:? Benign.? A letter regarding these results will be sent to the patient by the facility within 30 days. ? Approximately 10% of breast cancers are not detected by mammography.? A normal mammogram should not delay biopsy of a clinically suspicious abnormality. ? [id number] ? Electronically Signed: Zak Gutierrez MD at 14:41 EDT , ROS General General: Yes breast cancer; No weight change, appetite, fatigue, colon cancer or weakness HEENT HEENT: No difficulty swallowing, eye injury, eye surgery, swollen glands or hoarseness Endo Endocrine: No thyroid disease, diabetes mellitus, thyroid cancer, Hair loss, heat intolerance or cold intolerance Skin Skin: No rash or changing moles Breast Breast: No left breast lump, right breast lump, nipple discharge, breast pain, abnormal mammogram, abnormal US or breast enlargement Musc Musculoskeletal: No back problems, arthritis, rheumatoid arthritis, gout or joint pain Cardio Cardiovascular: No murmur, pacemaker, heart disease, atrial fibrillation, high blood pressure, heart attack, heart stent, palpitations, shortness of breat with exertion or chest pain Psych Psychiatric: Yes anxiety; No depression or hearing voices Resp Respiratory: No shortness of breath, No sleep apnea, No cough, No COPD, No asthma, No emphysema and No wheezing Gastro Gastrointestinal: No abdominal pain, No nausea or vomiting, No diarrhea, Yes constipation, No blood in stool, No acid reflux, No hemorrhoids, No ulcers, No gallbladder problem and No black,tarry stools Eloy Hematologic: No blood thinners, No blood disorders, No bleeding, No anemia and No blood clots Neuro Neurologic: No system reviewed and no additional complaints, except as documented, No as per HPI, No abnormal gait, No abnormal hearing, No abnormal movements, No abnormal speech, No behavioral changes, No burning sensations, No confusion, No convulsions, No disequilibrium, No dizziness, No localized weakness, No frequent falls, No headache(s), No lack of coordination, No loss of vision, No memory loss, No numbness, No other visual disturbances, No radicular pain, No restless legs, No sensory deficit, No syncope, No tingling, No tremor(s), No weakness and No other Exam Const General: cooperative, comfortable and no acute distress Chest Other: Right breast: No focal mass. No nipple discharge. No axillary or clavicular adenopathy Left breast: Well-healed transverse incision medial left breast with also well-healed curvilinear incision upper outer left breast soft tissue loss noted. No focal mass. No nipple discharge. No axillary clavicular adenopathy Assessment and Plan Assessment and Plan (1) Ductal carcinoma in situ (DCIS) of left breast: Status: Acute Plan: The patient has an unremarkable clinical examination. As noted above she has follow-up imaging scheduled at the [facility] apparently later this month. The patient has been instructed to please contact me subsequent to those exams so we can determine whether she needs additional follow-up surgical intervention. She is very alert and states that she will notifies me as soon as possible. Copy: Dr. Dexter Castillo M.D., F.A.C.S. PERRI General General: Yes breast cancer; No weight change, appetite, fatigue, colon cancer or weakness HEENT HEENT: No difficulty swallowing, eye injury, eye surgery, swollen glands or hoarseness Endo Endocrine: No thyroid disease, diabetes mellitus, thyroid cancer, Hair loss, heat intolerance or cold intolerance Skin Skin: No rash or changing moles Breast Breast: No left breast lump, right breast lump, nipple discharge, breast pain, abnormal mammogram, abnormal US or breast enlargement Musc Musculoskeletal: No back problems, arthritis, rheumatoid arthritis, gout or joint pain Cardio Cardiovascular: No murmur, pacemaker, heart disease, atrial fibrillation, high blood pressure, heart attack, heart stent, palpitations, shortness of breat with exertion or chest pain Psych Psychiatric: Yes anxiety; No depression or hearing voices Resp Respiratory: No shortness of breath, No sleep apnea, No cough, No COPD, No asthma, No emphysema and No wheezing Gastro Gastrointestinal: No abdominal pain, No nausea or vomiting, No diarrhea, Yes constipation, No blood in stool, No acid reflux, No hemorrhoids, No ulcers, No gallbladder problem and No black,tarry stools Eloy Hematologic: No blood thinners, No blood disorders, No bleeding, No anemia and No blood clots Neuro Neurologic: No system reviewed and no additional complaints, except as documented, No as per HPI, No abnormal gait, No abnormal hearing, No abnormal movements, No abnormal speech, No behavioral changes, No burning sensations, No confusion, No convulsions, No disequilibrium, No dizziness, No localized weakness, No frequent falls, No headache(s), No lack of coordination, No loss of vision, No memory loss, No numbness, No other visual disturbances, No radicular pain, No restless legs, No sensory deficit, No syncope, No tingling, No tremor(s), No weakness and No other Assessment and Plan Assessment and Plan (1) Abnormal mammogram of left breast: Status: Acute Plan: I have discussed with the patient today the findings of the left breast. As noted radiology talks about 1 area of clustered calcifications lower inner quadrant. I actually suspect that there may be 2 areas of clustered calcifications within this general location 1 slightly deeper than the other. I have explained this to her. I recommend to her that we do a stereotactic needle core biopsy of 1 and if possible both areas if that is what we determine upon obtaining the stereotactic images. We have briefly discussed her previous history of DCIS of the left breast and the fact that it that point she did not pursue radiation treatment or estrogen modulation treatment. She has had an opportunity to ask and have questions answered. She did confirm that she has previously seen Dr. Francesco Blair for her previous oncology care in consultation. I appreciate the ongoing opportunity of assisting with her surgical care. We have her scheduled for tomorrow to undergo the stereotactic biopsy. Copy: Dr. Dexter Leon and Dr. Francesco Castillo M.D., F.A.C.S I have examined the patient and the H&P has been reviewed. There are no clinical changes since date of exam. Alfonso Castillo M.D., F.A.C.S.
--- NOTE | 2022-11-13 11:15 | BRBX_PTH ---
PATIENT: JEREMY FRANCO LOC: [facility] U#:[id number] AGE/SX: 81/F ROOM: RE11/13/[address]: Dr. Alfonso Castillo MD : 1940 BED: DIS: 11/13/2022 SPEC #: [id number] RECD: 11/13/22 11:41 STATUS: EDSON YOANA #: [id number] RAYO: 11/13/22 11:[address]: Alfonso Castillo DEPT: SURGICAL PATHOLOGY RECD BY: Jermaine Frias ENTERED: 11/13/22 11:49 SP TYPE: BREAST BX OTHR DR: Dr. Dexter Leon DO Tissues: Left breast, NOS Procedures: Surgery Specimen Level IV HEADER OPERATION: Left stereotactic biopsy PRE-OP DIAGNOSIS: Left breast microcalcifications TISSUE SUBMITTED: Left breast medial calcifications ISCHEMIC TIME: 1 minute FIXATION TIME: 8.5 hours MICROSCOPIC DIAGNOSIS Left breast, medial calcification, stereotactic core biopsy: Ductal carcinoma in situ with the following characteristics: Architectural pattern - solid and comedo. Nuclear grade - grade 2 (intermediate). Necrosis - not identified. Calcification - present. See comment. VINNY:lorelei 11/14/2022 COMMENT Ductal cells show spindle cell morphology. Immunohistochemistry ([id number]) supports the above diagnosis. ER/WA/Tjk1eia studies are being performed on sections of tumor and the results from this study will be reported separately ([id number]). Case has been reviewed in consultation with Dr. Schaeffer who concurs with the above diagnosis. IDC:AM MICROSCOPIC DESCRIPTION Slides are reviewed. GROSS DESCRIPTION Received in fixative is one container labeled with the patient's name and designated left breast. The specimen consists of multiple elongated fragments of chase-yellow soft tissue that in aggregate measure 4.5 x 3.0 x 0.2 cm. The specimen is totally submitted in two cassettes. / AM:lorelei 11/13/2022 TC:0 CPT: 85083
--- NOTE | 2022-11-13 11:25 | PCM.OPRPT ---
Report of Operation Date of Procedure: 11/13/22 Pre-Operative Diagnosis: Clustered microcalcifications lower inner left breast Post-Operative Diagnosis: Same Surgery/Procedure Performed:: Stereotactic needle core biopsy lower inner left breast Description of Surgical Findings:: Consent was obtained. 81-year-old female was taken to the mammography suite placed prone on the table the left breast was placed in a medial lateral view microcalcifications rapidly identified stereotactic images obtained digital information was taken a single target site the breast was prepped with Betadine 1% lidocaine was used as a local anesthetic a total of 10 cc was used small stab incision was created 8 gauge resolved needle was advanced to prefire depth prefire films were obtained demonstrating adequate localization the device was fired the chamber was reduced to 18 mm 9 cores were obtained there was some bleeding at the remaining 2 cores specimens were imaged demonstrating several cores with microcalcifications consistent with the preoperative imaging a marking clip was left at 12:00 pressure then had to be held for hemostasis continuous pressure was held the patient was released from the device placed upon the table with continuous pressure held I then prepped the area again with Betadine and I placed a single simple suture of 3-0 nylon hemostasis had already been achieved but I wanted to assure hemostasis and to try to limit any hematoma collection as in the future I wanted to proceed with Ceretec needle core biopsy of the outer mid left breast microcalcifications. We had planned to do that today but I aborted that portion of the procedure. She tolerated the procedure very well. She had no pain throughout. I was present throughout the entire procedure and obtained complete hemostasis with continuous pressure held as well. At the completion simple suture was intact no active bleeding noted patient was comfortable. Staff members were instructed however to continue to additionally hold pressure for another 10 minutes prior to bandaging and patient observation. The specimens had been immediately submitted in formalin for analysis. Specimens core samples. Blood loss 20 cc. Drains none Alfonso Castillo M.D., F.A.C.S. Surgeon: Alfonso Castillo
== END | disposition home or self-care (01) ==
LOC: BIRAD 10:10
PROVIDERS: PCP Family Medicine; Referring Provider Surgery; Visit Provider Surgery
DX: D05.12 Intraductal carcinoma in situ of left breast (principal); R92.0 Mammographic microcalcification found on diagnostic imaging of breast; Z79.82 Long term (current) use of aspirin; Z85.3 Personal history of malignant neoplasm of breast; R92.8 Other abnormal and inconclusive findings on diagnostic imaging of breast
CPT/HCPCS: 19081; 88305; 88341; 88342; J7050

== ENCOUNTER → 2022-12-04 | Outpatient (CLI) | payer MEDICARE, OTHER, SELFPAY ==
[2022-12-04 18:09] LABS: Absolute Lymphocyte Count 1.43 X10^3/uL (0.83-4.51); Absolute Neutrophil Count 3.6 X10^3/uL (2.0-7.7); Basophil# 0.04 X10^3/uL; Basophil% 0.7 % (0-1); Eosinophils% 1.8 % (0-5); Hematocrit 36.5 % (37-47); Hemoglobin 11.6 g/dL (12.0-15.0); Lymphocyte # 1.43 X10^3/ul (0.83-4.51); Mean Corp Hgb Conc 31.8 g/dL (32-36); Mean Corpuscular Hgb 30.5 pg (27.0-32.0); Mean Corpuscular Volume 96.1 fL (81-99); Mean Platelet Vol. 9.6 fl (6.2-12.0); Monocyte# 0.37 X10^3/uL; Monocyte% 6.7 % (0-10); NRBC Flagged by Analyzer 0 % (0-5); Neutrophil # 3.55 X10^3/uL (2.7-7.7); Neutrophil % 64.6 % (47-70); Platelet Count 239 K/mm3 (150-450); RBC Distribution Width CV 13.1 % (11.6-14.6); RBC Distribution Width SD 46.6 fl (35.1-43.9); White Blood Count 5.5 K/mm3 (4.4-11.0)
[2022-12-04 18:37] LABS: ALB/GLOB Ratio 1.2 RATIO (0.9-2.4); AST(SGOT) 17 U/L (15-37); Alanine Aminotransfer ALT/SGPT 20 U/L (13-56); Alkaline Phosphatase 70 U/L (45-117); Anion Gap 4 (5-15); BUN 16 mg/dL (7-18); BUN/Creat Ratio 20.1 RATIO (10-20); Calcium,Total 9.3 mg/dL (8.5-10.1); Chloride 108 mmol/L (98-107); EST Glomerular Filtration Rate 74 mL/min (>60); Est Glom Filt Rate - Afr Amer 89 mL/min (>60); Globulin 3.2 g/dL (2.2-4.2); Glucose 95 mg/dL (74-106); Potassium 4.5 mmol/L (3.5-5.1); Protein, Total 7.2 g/dL (6.4-8.2); Sodium Level 142 mmol/L (136-145)
== END | disposition home or self-care (01) ==
LOC: BFHLAB 14:40
PROVIDERS: PCP Family Medicine; Referring Provider Family Medicine; Visit Provider Family Medicine
DX: R10.9 Unspecified abdominal pain (principal)
CPT/HCPCS: 36415; 80053; 85025

== ENCOUNTER → 2022-12-22 | Outpatient (CLI) | payer MEDICARE, OTHER, SELFPAY ==
--- NOTE | 2022-12-22 10:03 | US_ITS ---
INDICATION: Ruq pain x 1month intermittent EXAMINATION: Ultrasound US Abdomen RUQ (limited) TECHNIQUE: Hopkins scale and color doppler imaging was performed of the right upper quadrant. COMPARISON: None. FINDINGS: LIVER: 12.3 cm Hepatopedal portal flow. Renal veins are patent. There is normal echotexture. Anechoic simple right hepatic 3.9 cm cyst. There is no free fluid. GALLBLADDER AND BILIARY TREE: No shadowing gallstone, pericholecystic fluid or gallbladder wall thickening is demonstrated. The proximal common bile duct measures 3 mm, which is within normal limits for the patient''s age. Songraphic Cox''s sign: None RIGHT KIDNEY: 9.9 x 4.4 x 1.4 cm cm in length. Right renal 1.1 and 2.1 cm anechoic and simple cysts. No hydronephrosis. No shadowing nephrolithiasis. Normal cortical echogenicity without focal thinning or scarring. No evidence of cystic or solid mass. PANCREAS: No focal abnormality is demonstrated in the pancreas. No pancreatic ductal dilatation. US/Abdomen Limited IMPRESSION: No acute sonographic abnormality is demonstrated in the right upper quadrant. Right hepatic and renal cysts. Electronically Signed: Odell Bowden MD at 7:46 EDT ,
== END | disposition home or self-care (01) ==
LOC: US 10:00
PROVIDERS: PCP Family Medicine; Referring Provider Family Medicine; Visit Provider Family Medicine
DX: R10.11 Right upper quadrant pain (principal)
CPT/HCPCS: 76705

== ENCOUNTER → 2023-01-16 | Outpatient (CLI) | payer MEDICARE, OTHER, SELFPAY ==
--- NOTE | 2023-01-16 | BRBX_PTH ---
PATIENT: JEREMY FRANCO LOC: [facility] U#:[id number] AGE/SX: 82/F ROOM: RE01/16/[address]: Dr. Alfonso Castillo MD : 1940 BED: DIS: 01/16/2023 SPEC #: [id number] RECD: 01/16/23 13:15 STATUS: EDSON YOANA #: [id number] RAYO: 01/16/23 00:[address]: Alfonso Castillo DEPT: SURGICAL PATHOLOGY RECD BY: Nasim Teresa ENTERED: 01/16/23 13:15 SP TYPE: BREAST BX OTHR DR: Dr. Anastasia Earl DO Tissues: Left breast, NOS Procedures: Surgery Specimen Level IV HEADER OPERATION: Left stereotactic breast biopsy PRE-OP DIAGNOSIS: Left lower quadrant breast microcalcifications TISSUE SUBMITTED: Left breast core tissue ISCHEMIC TIME: 1 minute FIXATION TIME: 55.5 hours MICROSCOPIC DIAGNOSIS Left breast, lower quadrant microcalcifications, stereotactic core biopsy: Hyalinized fibroadenoma with focal microcalcifications. Negative for atypia or malignancy. VINNY:lorelei 01/19/2023 COMMENT Correlation with clinical, radiologic findings and appropriate follow up are necessary. Please make reference to previous specimens ([id number]), left breast, needle localization biopsy with diagnosis of ductal carcinoma in situ and ([id number]) left breast, medial calcification, stereotactic core biopsy with diagnosis of ductal carcinoma in situ. MICROSCOPIC DESCRIPTION Slides are reviewed. GROSS DESCRIPTION Received in fixative is one container labeled with the patient's name and designated left breast. The specimen consists of multiple elongated fragments of chase-yellow fibroadipose tissue that in aggregate measure 2.5 x 2.0 x 0.3 cm. The entire specimen is submitted in one cassette. / VINNY:lorelei 01/16/2023 TC:1 CPT: 89045
--- NOTE | 2023-01-16 11:49 | PCM.HP.BLA ---
History and Physical Date of Admission: 01/16/23 Visit Reasons: check bruising pt concerned about bx 12/15 Chief Complaint: check breast/hematoma Allergies Sulfa (Sulfonamide Antibiotics) Allergy (Verified 12/11/22 14:47) Rash Medications ascorbic acid (vitamin C) 500 mg capsule 500 mg PO DAILY 09/18/21 [History Confirmed 12/11/22] cholecalciferol (vitamin D3) 50 mcg (2,000 unit) capsule 50 mcg PO DAILY 09/18/21 [History Confirmed 12/11/22] biotin 10,000 mcg chewable tablet (Hair, Skin and Nails (biotin)) 10,000 mcg PO BID 10/08/22 [History Confirmed 12/11/22] coenzyme Q10 100 mg capsule (CoQ-10) 100 mg PO DAILY 10/08/22 [History Confirmed 12/11/22] cranberry fruit concentrate 250 mg chewable tablet (Azo Cranberry) 250 mg PO BID 10/08/22 [History Confirmed 12/11/22] xfxfntdk-kxg-vgtetx 5 mg-zeaxanth 1 mg-bilberry 7.5 mg-herbal capsule (Macular Health Formula) 1 cap PO DAILY 10/08/22 [History Confirmed 12/11/22] multivitamin with minerals-folic acid 200 mcg chewable tablet (Multivitamin Gummies) 1 tab PO BID 10/08/22 [History Confirmed 12/11/22] PFSH Medical History Benign neoplasm of colon Cancer Carotid stenosis, bilateral Diverticulosis of colon Ductal carcinoma in situ (DCIS) of left breast History of breast cancer History of stress test Hx of colonic polyps Non-smoker Post-menopausal Recurrent UTI Senile osteoporosis Urinary tract infection with hematuria Wears glasses Surgical History H/O vaginal hysterectomy History of anterior colporrhaphy History of appendectomy Status post left breast lumpectomy Tubal ligation status Family History Mother Cervical cancerFather Heart diseaseBrother Hypertension Heart disease Social History Smoking Status: Never smoker alcohol intake: never HPI HPI HPI: 82-year-old female who recently had a stereotactic core left breast biopsy lower inner quadrant November 13, 2022. She did have bleeding during the procedure that was controlled but after discharge she developed a hematoma was seen back in the office and this was compressed out. Pathology shows DCIS. She does appear to have a second area of microcalcifications in the left breast as well.. She has had a previous history of left breast DCIS and declined radiation treatment and hormonal manipulation. Surgical consideration for her was possible left mastectomy or pursuing a stereotactic core biopsy of the second area of microcalcifications with then subsequent potential future need for stereotactic wire localization with each area with then subsequent double lumpectomy. Her oncologist is Dr. Francesco Blair and we had requested referral. The patient presents today at her own discretion concerned about the residual ecchymosis and swelling of the left breast. She is not sure that she can pursue the secondary stereotactic needle core biopsy that is tentatively scheduled on December 15, 2022 My previous notes reflect the following ADDENDUM by Dr. Alfonso Castillo MD on 11/19/22 at 1435 Intake Chief Complaint: check breast/hematoma Allergies Sulfa (Sulfonamide Antibiotics) Allergy (Verified 11/19/22 08:08) Rash Medications ascorbic acid (vitamin C) 500 mg capsule 500 mg PO DAILY 09/18/21 [History Confirmed 11/19/22] cholecalciferol (vitamin D3) 50 mcg (2,000 unit) capsule 50 mcg PO DAILY 09/18/21 [History Confirmed 11/19/22] biotin 10,000 mcg chewable tablet (Hair, Skin and Nails (biotin)) 10,000 mcg PO BID 10/08/22 [History Confirmed 11/19/22] coenzyme Q10 100 mg capsule (CoQ-10) 100 mg PO DAILY 10/08/22 [History Confirmed 11/19/22] cranberry fruit concentrate 250 mg chewable tablet (Azo Cranberry) 250 mg PO BID 10/08/22 [History Confirmed 11/19/22] inmuxqlx-tqu-owodwc 5 mg-zeaxanth 1 mg-bilberry 7.5 mg-herbal capsule (Macular Health Formula) 1 cap PO DAILY 10/08/22 [History Confirmed 11/19/22] multivitamin with minerals-folic acid 200 mcg chewable tablet (Multivitamin Gummies) 1 tab PO BID 10/08/22 [History Confirmed 11/19/22] Assessment and Plan Assessment and Plan (1) Ductal carcinoma in situ (DCIS) of left breast: I have examined the patient and the H&P has been reviewed. There are no clinical changes since date of exam. Alfonso Castillo M.D., F.A.C.S.
--- NOTE | 2023-01-16 12:40 | PCM.OPRPT ---
Report of Operation Date of Procedure: 01/16/23 Pre-Operative Diagnosis: Microcalcifications lower outer left breast plus history of DCIS inner left breast Post-Operative Diagnosis: Same Surgery/Procedure Performed:: Stereotactic needle core biopsy lower outer left breast Description of Surgical Findings:: Timeout informed consent was obtained. The patient was taken to the stereotactic room placed prone on the table the left breast was placed in a lateral medial view microcalcifications in question were rapidly identified stereotactic images were obtained target on facility maintenance helper selected replacing image 1 single target site was selected the breast was prepped with Betadine 1% lidocaine was used as a local anesthetic 8 cc was used a small stab incision was created a 10-gauge resolved needle was advanced to prefire depth prefire films were obtained demonstrating adequate localization the device was fired 6 cores were obtained specimen mammograms were obtained demonstrating several cores with microcalcifications present a dumbbell mini clip was placed at the 12 o'clock position on fast view demonstrated diminishment in the more number of microcalcifications present in correct positioning of the marking clip she was released from the device pressure was held for hemostasis Steri-Strip Telfa OpSite dressing applied ice pack applied she was given activity wound care instructions The specimens were immediately placed in formalin for analysis. Specimens cores. Blood loss minimal. Drains none. Outpatient follow-up as scheduled Alfonso Castillo M.D., F.A.C.S. Surgeon: Alfonso Castillo Type of Anesthesia: Local
== END | disposition home or self-care (01) ==
LOC: BIRAD 11:35
PROVIDERS: PCP Family Medicine; Referring Provider Surgery; Visit Provider Surgery
DX: R92.0 Mammographic microcalcification found on diagnostic imaging of breast (principal); Z85.3 Personal history of malignant neoplasm of breast; Z79.82 Long term (current) use of aspirin; D05.12 Intraductal carcinoma in situ of left breast
CPT/HCPCS: 19081; 88305; J7050

== ENCOUNTER → 2023-03-13 | Outpatient (CLI) | payer MEDICARE, OTHER, SELFPAY ==
--- NOTE | 2023-03-13 13:08 | CT_ITS ---
STUDY: CT ABDOMEN AND PELVIS WITH CONTRAST REASON FOR EXAM: Female, 82 years old. HX OF BREAST CANCER WITH PERSISTENT RIGHT-SIDED ABD PAIN RADIATION DOSAGE (If Supplied By Facility): CTDIvol = ( 8.68 ) mGy, DLP = ( 234.42 ) mGycm TECHNIQUE: Oral and amp; IV Redi-CAT and amp; 100mL Isovue-300 was administered. Transaxial images were obtained from the dome of the diaphragm to the symphysis pubis. Multiplanar coronal and sagittal images were reformatted. Individualized Dose Optimization Techniques Were Used For This CT. COMPARISON: No relevant prior comparison study available FINDINGS: The visualized lung bases are unremarkable. The visualized portions of the heart are within normal limits. Lobulated 3.7 cm benign-appearing cyst in the right lobe of the liver. No evidence of gallstones. Prominent common bile duct measuring up to 9 mm. Normal spleen. 8 mm cystic lesion in the pancreatic head. Mild prominence of the pancreatic duct Normal bilateral adrenal glands. Thickening of the renal cortices bilaterally. 5 mm nonobstructing stone in the lower pole of the right kidney. Bilateral renal cysts appears to be simple measuring up to 2 cm cyst in the upper pole of the right kidney for which no further follow-up exam is needed. Prominence pelvicalyceal systems bilaterally. Normal visualized stomach. Normal caliber small bowel loops. Retention. No evidence of acute diverticulitis. There is non-visualization of the appendix. There is diffuse atherosclerotic calcification of the abdominal aorta, without a demonstrated aneurysm. No retroperitoneal adenopathy. Normal urinary bladder. There is absence of the uterus consistent with a prior hysterectomy. Normal abdominal wall. Unremarkable osseous structures. CT/Abdomen/Pelvis WITH Contrast IMPRESSION: 1. Prominent common bile duct and pancreatic duct with cystic lesion in the pancreatic head. Further evaluation with MRI/MRCP with contrast is recommended. 2. Benign-appearing liver and bilateral renal cysts for which no further follow-up exam is needed. 3. Otherwise no focal acute inflammatory process. Electronically Signed: Robson Beltran MD at 14:46 EDT ,
== END | disposition home or self-care (01) ==
PROVIDERS: PCP Family Medicine; Referring Provider Family Medicine; Visit Provider Family Medicine
DX: R10.9 Unspecified abdominal pain (principal); Z85.3 Personal history of malignant neoplasm of breast
CPT/HCPCS: 74177; Q9967

== ENCOUNTER 2023-03-18 07:38 | Day surgery (SDC) | payer MEDICARE, OTHER, SELFPAY ==
[2023-03-09 14:07] LABS: Hematocrit 37.4 % (37-47); Hemoglobin 12.3 g/dL (12.0-15.0); Mean Corp Hgb Conc 32.9 g/dL (32-36); Mean Corpuscular Hgb 30.7 pg (27.0-32.0); Mean Corpuscular Volume 93.3 fL (81-99); Mean Platelet Vol. 9.1 fl (6.2-12.0); Platelet Count 216 K/mm3 (150-450); RBC Distribution Width CV 12.5 % (11.6-14.6); RBC Distribution Width SD 43.3 fl (35.1-43.9); Red Blood Count 4.01 M/mm3 (4.2-5.4); White Blood Count 5.5 K/mm3 (4.4-11.0)
[2023-03-09 14:29] LABS: ALB/GLOB Ratio 1.1 RATIO (0.9-2.4); AST(SGOT) 13 U/L (15-37); Alanine Aminotransfer ALT/SGPT 22 U/L (13-56); Albumin, Serum 3.5 g/dL (3.2-5.0); Alkaline Phosphatase 69 U/L (45-117); Anion Gap 2 (5-15); BUN 22 mg/dL (7-18); BUN/Creat Ratio 26.2 RATIO (10-20); Chloride 110 mmol/L (98-107); Creatinine, Serum 0.84 mg/dL (0.55-1.02); EST Glomerular Filtration Rate 69 mL/min (>60); Est Glom Filt Rate - Afr Amer 84 mL/min (>60); Globulin 3.3 g/dL (2.2-4.2); Glucose 129 mg/dL (74-106); Potassium 3.9 mmol/L (3.5-5.1); Protein, Total 6.8 g/dL (6.4-8.2); Sodium Level 142 mmol/L (136-145)
--- NOTE | 2023-03-17 11:00 | BRBX_PTH ---
PATIENT: JEREMY FRANCO LOC: [facility] – [place] U#:[id number] AGE/SX: 82/F ROOM: RE03/18/[address]: Dr. Alfonso Castillo MD : 1940 BED: DIS: 03/18/2023 SPEC #: [id number] RECD: 03/18/23 11:03 STATUS: EDSON YOANA #: [id number] RAYO: 03/17/23 11:[address]: Alfonso Castillo DEPT: SURGICAL PATHOLOGY RECD BY: Clair Naylor ENTERED: 03/18/23 12:51 SP TYPE: BREAST BX OTHR DR: Dr. Dexter Leon, DO Tissues: Breast, NOS Procedures: Surgery Specimen Level V HEADER OPERATION: Stereotactic wire loc left breast with wire localized lumpectomy PRE-OP DIAGNOSIS: Abnormal mammogram of left breast, DCIS of left breast TISSUE SUBMITTED: Left breast mass MICROSCOPIC DIAGNOSIS Left breast mass, lumpectomy: Ductal carcinoma in situ. See cancer synoptic report below. AM:lorelei 03/24/2023 COMMENT DUCTAL CARCINOMA IN SITU SUMMARY: Procedure - wire-guided lumpectomy Specimen - partial breast Laterality - left breast Size of DCIS - 1.2 x 0.6 cm Number of blocks - 7 of 12 blocks Architectural pattern - solid Nuclear grade - 3/3 Necrosis - focally present Margins - uninvolved by in situ carcinoma. Distance from closest margin - 2.0 mm from anterior margin. Regional lymph nodes - no lymph nodes found. Microcalcifications - present in neoplastic and non-neoplastic tissue. Additional Pathologic Findings - fibrocystic change, microfibroadenoma. Ancillary Studies from previous specimen ([id number] / [id number]): ER - negative (0%) UT - negative (0%) Her2 elliott ([facility]) - negative (0) Clinical history - left breast microcalcifications. PATHOLOGIC STAGING: T(DCIS) Nx Mx The above summary is in compliance with [employer] ([employer]) Cancer Protocols Checklist and [place] [employer] on Cancer (AJCC), Staging Manual, 8th Ed. Reference is made to the patient's previous left breast stereotactic core biopsy in which DCIS, nuclear grade 2 was identified ([id number]). MICROSCOPIC DESCRIPTION Slides are reviewed. GROSS DESCRIPTION Received fresh and postfixed in formalin labeled with the patient's name is a specimen designated left breast. The specimen consists of a piece of fibroadipose tissue with needle localization measuring 5.5 x 5.0 x 2.5 cm. The specimen is oriented as follows: short suture - superior, long suture - lateral. The specimen is inked as follows: anterior - yellow, posterior - black, superior - blue, inferior - green, medial - red and lateral - orange. Sections reveal a biopsy cavity measuring 0.5 cm in greatest dimension and it is 0.5 cm away from the closest anterior margin. Sections of the rest of the specimen reveal chase-yellow adipose cut surfaces with focal fibrous area. Impact Hammer Operator sections are submitted in 12 cassettes as follows: 1 - perpendicular medial and lateral margin, 2 - perpendicular superior, inferior and posterior margin, 3-5 - biopsy cavity with closest anterior margin, 6-12 - Impact Hammer Operator sections adjacent to and away from the biopsy cavity. Sections are submitted after additional fixation. / VINNY:lorelei 03/18/2023 TC:0 CPT: 96877
[2023-03-18 08:34] VITALS: BP 159/72; PULSE 85; RESP 16; TEMP 37.4; O2SAT 100; BMI 20.4
[2023-03-18] MEDS: Lactated Ringers 1,000 ML 15 ML IV (08:39)
--- NOTE | 2023-03-18 09:34 | BI_ITS ---
SURGICAL BREAST SPECIMEN RADIOGRAPH CLINICAL: Document presence of tissue clip marker in biopsy specimen. FINDINGS: Specimen shows presence of tissue clip marker. Electronically Signed: Zak Gutierrez MD at 12:49 EST , BI/Breast Biopsy Specimen IMPRESSION: undefined
--- NOTE | 2023-03-18 09:36 | PCM.HP.BLA ---
History and Physical Date of Admission: 03/18/23 Chief Complaint: F/U Breast Biopsy 01/16/23 Allergies Sulfa (Sulfonamide Antibiotics) Allergy (Verified 02/09/23 09:03) Rash Medications ascorbic acid (vitamin C) 500 mg capsule 500 mg PO DAILY 09/18/21 [History Confirmed 02/09/23] cholecalciferol (vitamin D3) 50 mcg (2,000 unit) capsule 50 mcg PO DAILY 09/18/21 [History Confirmed 02/09/23] biotin 10,000 mcg chewable tablet (Hair, Skin and Nails (biotin)) 10,000 mcg PO BID 10/08/22 [History Confirmed 02/09/23] coenzyme Q10 100 mg capsule (CoQ-10) 100 mg PO DAILY 10/08/22 [History Confirmed 02/09/23] cranberry fruit concentrate 250 mg chewable tablet (Azo Cranberry) 250 mg PO BID 10/08/22 [History Confirmed 02/09/23] cgrvgmzw-tdv-efosls 5 mg-zeaxanth 1 mg-bilberry 7.5 mg-herbal capsule (Macular Health Formula) 1 cap PO DAILY 10/08/22 [History Confirmed 02/09/23] multivitamin with minerals-folic acid 200 mcg chewable tablet (Multivitamin Gummies) 1 tab PO BID 10/08/22 [History Confirmed 02/09/23] Assessment and Plan Assessment and Plan (1) Abnormal mammogram of left breast: Status: Acute (2) Ductal carcinoma in situ (DCIS) of left breast: Status: Acute Plan: As specific clarification the patient is interested in the least surgical and medical intervention as indicated. She is aware that we will try initiating with a wire localized lumpectomy. She is aware of the potential for invasive ductal carcinoma to be present and she is also additionally aware of the possibility of positive margins. She is not and has not been interested in a mastectomy unless there is no other future alternative. We will proceed with more conservative measures at her request. Alfonso Castillo M.D., F.A.C.S. 02/09/23 1518 <Electronically signed by Alfonso Castillo MD> Date Alfonso Castillo MD cc: Dr. Anastasia Earl, DO; Dr. Francesco Blair, DO ~* Signed Intake Vital Signs 12/11/2313:46 Height 5 ft 1 in Weight: 110 lb 6 oz BMI 20.8 BP 178/88 H Blood Pressure Location Rt brachial Position Sitting Respiration 15 Pulse 89 Pulse Source Monitor Pulse Oximetry (%) 99 Oxygen Delivery Method room air Intake Visit Reasons: f/u from stereotactic biopsy 01/16/23 Chief Complaint: F/U Breast Biopsy 01/16/23 [employer]p Lit[employer] Associate Required: No Is patient in pain?: No Allergies Sulfa (Sulfonamide Antibiotics) Allergy (Verified 02/09/23 09:03) Rash Medications ascorbic acid (vitamin C) 500 mg capsule 500 mg PO DAILY 09/18/21 [History Confirmed 02/09/23] cholecalciferol (vitamin D3) 50 mcg (2,000 unit) capsule 50 mcg PO DAILY 09/18/21 [History Confirmed 02/09/23] biotin 10,000 mcg chewable tablet (Hair, Skin and Nails (biotin)) 10,000 mcg PO BID 10/08/22 [History Confirmed 02/09/23] coenzyme Q10 100 mg capsule (CoQ-10) 100 mg PO DAILY 10/08/22 [History Confirmed 02/09/23] cranberry fruit concentrate 250 mg chewable tablet (Azo Cranberry) 250 mg PO BID 10/08/22 [History Confirmed 02/09/23] fnpzmhyg-pgn-axvdml 5 mg-zeaxanth 1 mg-bilberry 7.5 mg-herbal capsule (Macular Health Formula) 1 cap PO DAILY 10/08/22 [History Confirmed 02/09/23] multivitamin with minerals-folic acid 200 mcg chewable tablet (Multivitamin Gummies) 1 tab PO BID 10/08/22 [History Confirmed 02/09/23] PFSH Medical History (Updated 02/09/23 @ 09:01 by Candida Pierre) Benign neoplasm of colon Cancer Carotid stenosis, bilateral Diverticulosis of colon 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 History of breast cancer History of stress test Hx of colonic polyps Non-smoker Post-menopausal Recurrent UTI Senile osteoporosis Urinary tract infection with hematuria Wears glasses Surgical History (Updated 02/09/23 @ 09:02 by Candida Pierre) H/O vaginal hysterectomy History of anterior colporrhaphy History of appendectomy History of left breast biopsy Status post left breast lumpectomy Tubal ligation status Family History Mother Cervical cancerFather Heart diseaseBrother Hypertension Heart disease Social History Smoking Status: Never smoker alcohol intake: never HPI HPI HPI: 82-year-old female. On November 13, 2022 because of clustered microcalcifications lower inner left breast stereotactic needle core biopsy. Pathology demonstrated ductal carcinoma in situ. She developed a hematoma which required gradual resolution. There had been a second area of microcalcifications in the left breast and so on January 16, 2023 I performed a stereotactic needle core biopsy left lower quadrant for microcalcifications and pathology suggest hyalinized fibroadenoma with focal microcalcifications negative for atypia or malignancy. She returns now to discuss pathology particularly regarding the left lower inner breast DCIS. She has had a previous history of left breast DCIS which was resected in the past and at that time she had declined radiation and hormonal therapy. Her oncologist is Dr. Francesco Blair. Patient has discussed treatment options with Dr. Francesco Blair. She states a variety of discussion was had. The patient was initially referred to oncologic radiology but she canceled that appointment. She believes that since this is not invasive on pathology that she would like to have a more minimal approach. ANTIBODY / CLONE RESULT E-Cad (ECH-6) positive CK8 ([id number]) positive, focal & weak Calponin-1 (DZ154R) positive in myoepithelial layer P40 (BC28) positive in myoepithelial layer AE1-3 (AE1/AE3/PCK26) positive CK7 (OV-TL12/30) positive MORPHOMETRIC ANALYSIS ER (clone 6F11) negative (0%) WY (clone 16/1E2) negative (0%) Her-2Neu (clone CB11) negative (0 My previous notes reflect the following Allergies Sulfa (Sulfonamide Antibiotics) Allergy (Verified 12/11/22 14:47) Rash Medications ascorbic acid (vitamin C) 500 mg capsule 500 mg PO DAILY 09/18/21 [History Confirmed 12/11/22] cholecalciferol (vitamin D3) 50 mcg (2,000 unit) capsule 50 mcg PO DAILY 09/18/21 [History Confirmed 12/11/22] biotin 10,000 mcg chewable tablet (Hair, Skin and Nails (biotin)) 10,000 mcg PO BID 10/08/22 [History Confirmed 12/11/22] coenzyme Q10 100 mg capsule (CoQ-10) 100 mg PO DAILY 10/08/22 [History Confirmed 12/11/22] cranberry fruit concentrate 250 mg chewable tablet (Azo Cranberry) 250 mg PO BID 10/08/22 [History Confirmed 12/11/22] yvzvpfnv-giz-itnayj 5 mg-zeaxanth 1 mg-bilberry 7.5 mg-herbal capsule (Macular Health Formula) 1 cap PO DAILY 10/08/22 [History Confirmed 12/11/22] multivitamin with minerals-folic acid 200 mcg chewable tablet (Multivitamin Gummies) 1 tab PO BID 10/08/22 [History Confirmed 12/11/22] PFSH Medical History Benign neoplasm of colon Cancer Carotid stenosis, bilateral Diverticulosis of colon Ductal carcinoma in situ (DCIS) of left breast History of breast cancer History of stress test Hx of colonic polyps Non-smoker Post-menopausal Recurrent UTI Senile osteoporosis Urinary tract infection with hematuria Wears glasses Surgical History H/O vaginal hysterectomy History of anterior colporrhaphy History of appendectomy Status post left breast lumpectomy Tubal ligation status Family History Mother Cervical cancerFather Heart diseaseBrother Hypertension Heart disease Social History Smoking Status: Never smoker alcohol intake: never HPI HPI HPI: 82-year-old female who recently had a stereotactic core left breast biopsy lower inner quadrant November 13, 2022. She did have bleeding during the procedure that was controlled but after discharge she developed a hematoma was seen back in the office and this was compressed out. Pathology shows DCIS. She does appear to have a second area of microcalcifications in the left breast as well.. She has had a previous history of left breast DCIS and declined radiation treatment and hormonal manipulation. Surgical consideration for her was possible left mastectomy or pursuing a stereotactic core biopsy of the second area of microcalcifications with then subsequent potential future need for stereotactic wire localization with each area with then subsequent double lumpectomy. Her oncologist is Dr. Francesco Blair and we had requested referral. Allergies Sulfa (Sulfonamide Antibiotics) Allergy (Verified 12/11/22 14:47) Rash Medications ascorbic acid (vitamin C) 500 mg capsule 500 mg PO DAILY 09/18/21 [History Confirmed 12/11/22] cholecalciferol (vitamin D3) 50 mcg (2,000 unit) capsule 50 mcg PO DAILY 09/18/21 [History Confirmed 12/11/22] biotin 10,000 mcg chewable tablet (Hair, Skin and Nails (biotin)) 10,000 mcg PO BID 10/08/22 [History Confirmed 12/11/22] coenzyme Q10 100 mg capsule (CoQ-10) 100 mg PO DAILY 10/08/22 [History Confirmed 12/11/22] cranberry fruit concentrate 250 mg chewable tablet (Azo Cranberry) 250 mg PO BID 10/08/22 [History Confirmed 12/11/22] cbpzynhp-bus-bmpmab 5 mg-zeaxanth 1 mg-bilberry 7.5 mg-herbal capsule (Macular Health Formula) 1 cap PO DAILY 10/08/22 [History Confirmed 12/11/22] multivitamin with minerals-folic acid 200 mcg chewable tablet (Multivitamin Gummies) 1 tab PO BID 10/08/22 [History Confirmed 12/11/22] [facility] Medical History Benign neoplasm of colon Cancer Carotid stenosis, bilateral Diverticulosis of colon Ductal carcinoma in situ (DCIS) of left breast History of breast cancer History of stress test Hx of colonic polyps Non-smoker Post-menopausal Recurrent UTI Senile osteoporosis Urinary tract infection with hematuria Wears glasses Surgical History H/O vaginal hysterectomy History of anterior colporrhaphy History of appendectomy Status post left breast lumpectomy Tubal ligation status Family History Mother Cervical cancerFather Heart diseaseBrother Hypertension Heart disease Social History Smoking Status: Never smoker alcohol intake: never HPI HPI HPI: 82-year-old female who recently had a stereotactic core left breast biopsy lower inner quadrant November 13, 2022. She did have bleeding during the procedure that was controlled but after discharge she developed a hematoma was seen back in the office and this was compressed out. Pathology shows DCIS. She does appear to have a second area of microcalcifications in the left breast as well.. She has had a previous history of left breast DCIS and declined radiation treatment and hormonal manipulation. Surgical consideration for her was possible left mastectomy or pursuing a stereotactic core biopsy of the second area of microcalcifications with then subsequent potential future need for stereotactic wire localization with each area with then subsequent double lumpectomy. Her oncologist is Dr. Francesco Blair and we had requested referr Signed Intake Vital Signs 10/14/2304:50 Height 5 ft 1 in Intake Visit Reasons: F/U STEREO 7-6 Chief Complaint: check breast/hematoma Allergies Sulfa (Sulfonamide Antibiotics) Allergy (Verified 11/19/22 08:08)Rash Medications ascorbic acid (vitamin C) 500 mg capsule 500 mg PO DAILY 09/18/21 [History Confirmed 11/19/22] cholecalciferol (vitamin D3) 50 mcg (2,000 unit) capsule 50 mcg PO DAILY 09/18/21 [History Confirmed 11/19/22] biotin 10,000 mcg chewable tablet (Hair, Skin and Nails (biotin)) 10,000 mcg PO BID 10/08/22 [History Confirmed 11/19/22] coenzyme Q10 100 mg capsule (CoQ-10) 100 mg PO DAILY 10/08/22 [History Confirmed 11/19/22] cranberry fruit concentrate 250 mg chewable tablet (Azo Cranberry) 250 mg PO BID 10/08/22 [History Confirmed 11/19/22] iehzmnak-sap-btrvhs 5 mg-zeaxanth 1 mg-bilberry 7.5 mg-herbal capsule (Macular Health Formula) 1 cap PO DAILY 10/08/22 [History Confirmed 11/19/22] multivitamin with minerals-folic acid 200 mcg chewable tablet (Multivitamin Gummies) 1 tab PO BID 10/08/22 [History Confirmed 11/19/22] [facility] Medical History Benign neoplasm of colon Cancer Carotid stenosis, bilateral Diverticulosis of colon Ductal carcinoma in situ (DCIS) of left breast History of breast cancer History of stress test Hx of colonic polyps Non-smoker Post-menopausal Recurrent UTI Senile osteoporosis Urinary tract infection with hematuria Wears glasses Surgical History H/O vaginal hysterectomy History of anterior colporrhaphy History of appendectomy Status post left breast lumpectomy Tubal ligation status Family History Mother Cervical cancerFather Heart diseaseBrother Hypertension Heart disease Social History Smoking Status: Never smoker alcohol intake: never HPI HPI HPI: 81-year-old female. She returns status post stereotactic needle core biopsy lower inner left breast that I performed for her on November 13, 2022. We did have some bleeding issues during the procedure pressure was held hemostasis was felt to been achieved but then she progressed with a hematoma and so we asked her to come to the office we held compression and we were able to compress the hematoma out and stop the bleeding without the need for further intervention. A suture was placed at the time of the stereotactic biopsy. It is of note that I had intended to biopsy an additional area in the left breast more laterally but because of the bleeding during the procedure we aborted that second stereotactic biopsy. November 13, 2022 MICROSCOPIC DIAGNOSIS Left breast, medial calcification, stereotactic core biopsy: Ductal carcinoma in situ with the following characteristics: Architectural pattern ? solid and comedo. Nuclear grade ? grade 2 (intermediate). Necrosis ? not identified. Calcification ? present. See comment. SJ:lorelei 11/14/2022 COMMENT Ductal cells show spindle cell morphology. Immunohistochemistry ([id number]) supports the above diagnosis. ER/WY/Vyd5bir studies are being performed on sections of tumor and the results from this study will be reported separately ([id number] Previous left breast pathology from a needle localized lumpectomy of July 29, 2016 which also followed a stereotactic biopsy is as follows. DUCTAL CARCINOMA IN SITU SUMMARY: Specimen - partial breast. Procedure - excision with double wire-guided localization. Lymph node sampling ? no lymph node present Specimen integrity - single intact specimen. Specimen size ? 6 x 6 x 2.8 cm Specimen laterality ? left Tumor site ? not specified Size (extent) of DCIS ? 1 x 0.5 x 0.5 cm Number of blocks with DCIS - 6 Number of blocks examined - 9 Histologic type - ductal carcinoma in situ. Architectural patterns ? cribriform and solid Nuclear grade - Grade 2 (intermediate) Necrosis - present, central (expansive comedo necrosis). Margins: Margins uninvolved by ductal carcinoma in situ. The tumor is 0.2 cm away from the closest superior margin. Treatment effect: Response to presurgical (neoadjuvant) therapy - no known presurgical therapy. Lymph nodes: No lymph nodes submitted. Distant metastasis ? not applicable Additional Pathologic Findings ? fibrocystic changes Ancillary Studies from previous specimen ([id number] / [id number]): ER ? positive (7%, very weak) WY ? negative (0%) Her2 elliott ([facility]) ? negative (1+) Previous notes reflect the following Visit Reasons: Go over results from Diagnostic Mammogram Chief Complaint: go over diagnostic mammogram results. Is patient in pain?: No Allergies Sulfa (Sulfonamide Antibiotics) Allergy (Verified 11/12/22 13:13) Rash Medications aspirin 81 mg tablet,delayed release 81 mg PO DAILY 06/18/16 [History Confirmed 11/12/22] ascorbic acid (vitamin C) 500 mg capsule 500 mg PO DAILY 09/18/21 [History Confirmed 11/12/22] cholecalciferol (vitamin D3) 50 mcg (2,000 unit) capsule 50 mcg PO DAILY 09/18/21 [History Confirmed 11/12/22] biotin 10,000 mcg chewable tablet (Hair, Skin and Nails (biotin)) 10,000 mcg PO BID 10/08/22 [History Confirmed 11/12/22] coenzyme Q10 100 mg capsule (CoQ-10) 100 mg PO DAILY 10/08/22 [History Confirmed 11/12/22] cranberry fruit concentrate 250 mg chewable tablet (Azo Cranberry) 250 mg PO BID 10/08/22 [History Confirmed 11/12/22] jztaqnwy-jpc-staxft 5 mg-zeaxanth 1 mg-bilberry 7.5 mg-herbal capsule (Macular Health Formula) 1 cap PO DAILY 10/08/22 [History Confirmed 11/12/22] multivitamin with minerals-folic acid 200 mcg chewable tablet (Multivitamin Gummies) 1 tab PO BID 10/08/22 [History Confirmed 11/12/22] PFSH Medical History Benign neoplasm of colon Cancer Carotid stenosis, bilateral Diverticulosis of colon Ductal carcinoma in situ (DCIS) of left breast History of breast cancer History of stress test Hx of colonic polyps Non-smoker Post-menopausal Recurrent UTI Senile osteoporosis Urinary tract infection with hematuria Wears glasses Surgical History H/O vaginal hysterectomy History of anterior colporrhaphy History of appendectomy Status post left breast lumpectomy Tubal ligation status Family History Mother Cervical cancerFather Heart diseaseBrother Hypertension Heart disease Social History Smoking Status: Never smoker alcohol intake: never HPI HPI HPI: I have recently seen the patient on October 13, 2022 and annual follow-up of left breast DCIS from July 29, 2016. When I saw her October 13 she had not completed her mammographic imaging. She now has those completed and they were done at the [facility]. These were performed on November 05, 2022 and represented diagnostic left mammograms. I have personally reviewed the images. There are grouped pleomorphic calcifications in the left breast inferior medial middle depth BI-RADS Category 4. What is not commented upon is that there appeared to be actually 2 collections at different depths with this in this area of the left breast. My previous notes reflect the following Visit Reasons: POST MAMMOGRAM YEARLY FOLLOWUP Chief Complaint: YEARLY F/U Allergies Sulfa (Sulfonamide Antibiotics) Allergy (Verified 10/08/22 12:06) Rash PFSH Medical History Benign neoplasm of colon Cancer Carotid stenosis, bilateral Diverticulosis of colon Ductal carcinoma in situ (DCIS) of left breast History of breast cancer History of stress test Hx of colonic polyps Non-smoker Post-menopausal Recurrent UTI Senile osteoporosis Urinary tract infection with hematuria Wears glasses Surgical History H/O vaginal hysterectomy History of anterior colporrhaphy History of appendectomy Status post left breast lumpectomy Tubal ligation status Family History Mother Cervical cancerFather Heart diseaseBrother Hypertension Heart disease Social History Smoking Status: Never smoker alcohol intake: never HPI HPI HPI: HPI: JEREMY FRANCO, is a 81 F who presents to the office today for surgical follow-up of DCIS left breast treated July 29, 2016 Previously July 29, 2016 I performed a double wire localization upper inner left breast with excisional biopsy.? Final pathology demonstrated a 1 x 0.5 x 0.5 similar area of DCIS the closest margin being 0.2 cm.? Estrogen receptor was weakly positive at 70%.? Progesterone receptor was negative.? HER-2/elliott was -1+.? HER-2/elliott by FISH not performed.? The patient was seen in consultation by Dr. Francesco Blair.? The patient did not pursue radiation treatment.? She is not currently on any suppressive medications. Patient reports she had her most recent set of mammograms done at the [facility]. It is apparent however that there is some abnormality has been detected and she has been scheduled to return to have follow-up imaging. At this moment I do not have a copy of either the report nor the images. The patient herself has no particular complaints. No breast pain. No focal mass. No nipple discharge or bleeding. She is otherwise enjoying good health status September 16, 2021 MAMMOGRAPHY - BILATERAL SCREENING REASON FOR EXAM:? ? Female, 80 years old.? Routine annual screening examination. PERTINENT HISTORY:? Personal history of breast cancer.? Prior left lumpectomy. TECHNIQUE: ? Digital bilateral breast heide (3D mammographic acquisition) in the CC and MLO projections. 2-D mediolateral oblique (MLO) and craniocaudad (CC) views of both breasts were obtained.? CAD: Full Field Digital Mammography with Computer Added Detection was performed. COMPARISON: ? Comparison is made with prior examination dated 09/09/2019 and 09/03/2018. FINDINGS: Breast Composition:? The breasts are extremely dense, which lowers the sensitivity of mammography. There are no dominant masses or suspicious calcifications.? Stable microcalcifications in the upper slightly lateral aspect of the right breast No other significant abnormalities are identified.? There has been no significant change since the prior study. BI/SCRN MAMM (CAD)W/HEIDE BILAT IMPRESSION: Stable bilateral screening mammogram.? Yearly follow-up mammogram recommended. ? (A) ? ? ASSESSMENT CATEGORY: BIRADS Category 2:? Benign.? A letter regarding these results will be sent to the patient by the facility within 30 days. ? Approximately 10% of breast cancers are not detected by mammography.? A normal mammogram should not delay biopsy of a clinically suspicious abnormality. ? [id number] ? Electronically Signed: Zak Gutierrez MD at 14:41 EDT , ROS General General: Yes breast cancer; No weight change, appetite, fatigue, colon cancer or weakness HEENT HEENT: No difficulty swallowing, eye injury, eye surgery, swollen glands or hoarseness Endo Endocrine: No thyroid disease, diabetes mellitus, thyroid cancer, Hair loss, heat intolerance or cold intolerance Skin Skin: No rash or changing moles Breast Breast: No left breast lump, right breast lump, nipple discharge, breast pain, abnormal mammogram, abnormal US or breast enlargement Musc Musculoskeletal: No back problems, arthritis, rheumatoid arthritis, gout or joint pain Cardio Cardiovascular: No murmur, pacemaker, heart disease, atrial fibrillation, high blood pressure, heart attack, heart stent, palpitations, shortness of breat with exertion or chest pain Psych Psychiatric: Yes anxiety; No depression or hearing voices Resp Respiratory: No shortness of breath, No sleep apnea, No cough, No COPD, No asthma, No emphysema and No wheezing Gastro Gastrointestinal: No abdominal pain, No nausea or vomiting, No diarrhea, Yes constipation, No blood in stool, No acid reflux, No hemorrhoids, No ulcers, No gallbladder problem and No black,tarry stools Eloy Hematologic: No blood thinners, No blood disorders, No bleeding, No anemia and No blood clots Neuro Neurologic: No system reviewed and no additional complaints, except as documented, No as per HPI, No abnormal gait, No abnormal hearing, No abnormal movements, No abnormal speech, No behavioral changes, No burning sensations, No confusion, No convulsions, No disequilibrium, No dizziness, No localized weakness, No frequent falls, No headache(s), No lack of coordination, No loss of vision, No memory loss, No numbness, No other visual disturbances, No radicular pain, No restless legs, No sensory deficit, No syncope, No tingling, No tremor(s), No weakness and No other Exam Const General: cooperative, comfortable and no acute distress Chest Other: Right breast: No focal mass. No nipple discharge. No axillary or clavicular adenopathy Left breast: Well-healed transverse incision medial left breast with also well-healed curvilinear incision upper outer left breast soft tissue loss noted. No focal mass. No nipple discharge. No axillary clavicular adenopathy Assessment and Plan Assessment and Plan (1) Ductal carcinoma in situ (DCIS) of left breast: Status: Acute Plan: The patient has an unremarkable clinical examination. As noted above she has follow-up imaging scheduled at the [facility] apparently later this month. The patient has been instructed to please contact me subsequent to those exams so we can determine whether she needs additional follow-up surgical intervention. She is very alert and states that she will notifies me as soon as possible. Copy: Dr. Dexter Castillo M.D., F.A.C.S ROS General General: Yes breast cancer; No weight change, appetite, fatigue, colon cancer or weakness HEENT HEENT: No difficulty swallowing, eye injury, eye surgery, swollen glands or hoarseness Endo Endocrine: No thyroid disease, diabetes mellitus, thyroid cancer, Hair loss, heat intolerance or cold intolerance Skin Skin: No rash or changing moles Breast Breast: No left breast lump, right breast lump, nipple discharge, breast pain, abnormal mammogram, abnormal US or breast enlargement Musc Musculoskeletal: No back problems, arthritis, rheumatoid arthritis, gout or joint pain Cardio Cardiovascular: No murmur, pacemaker, heart disease, atrial fibrillation, high blood pressure, heart attack, heart stent, palpitations, shortness of breat with exertion or chest pain Psych Psychiatric: Yes anxiety; No depression or hearing voices Resp Respiratory: No shortness of breath, No sleep apnea, No cough, No COPD, No asthma, No emphysema and No wheezing Gastro Gastrointestinal: No abdominal pain, No nausea or vomiting, No diarrhea, Yes constipation, No blood in stool, No acid reflux, No hemorrhoids, No ulcers, No gallbladder problem and No black,tarry stools [place] Hematologic: No blood thinners, No blood disorders, No bleeding, No anemia and No blood clots Neuro Neurologic: No system reviewed and no additional complaints, except as documented, No as per HPI, No abnormal gait, No abnormal hearing, No abnormal movements, No abnormal speech, No behavioral changes, No burning sensations, No confusion, No convulsions, No disequilibrium, No dizziness, No localized weakness, No frequent falls, No headache(s), No lack of coordination, No loss of vision, No memory loss, No numbness, No other visual disturbances, No radicular pain, No restless legs, No sensory deficit, No syncope, No tingling, No tremor(s), No weakness and No other Exam Chest Other: Left breast: Still some changes in the inner mid left breast with some slight retraction and postbiopsy hematoma changes. 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 She has had a remote history of a similar process. 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 She is not interested in aggressive treatment. We discussed stereotactic wire localization with wire localized lumpectomy. We discussed the technique benefit risk complications and alternatives. We discussed the possibility of positive margins. By biopsy she does not have invasive disease we discussed sentinel lymph node biopsy but I do not see an indication for that at this time. The patient is already decided that she is not likely to pursue postoperative radiation treatment. She has had an opportunity to ask and have questions answered. We will schedule and proceed with a stereotactic wire localization lower inner left breast with wire localized lumpectomy. I appreciate the ongoing opportunity of assisting with her surgical care. Copy: Dr. Anastasia Earl and Dr. Francesco Castillo M.D., F.A.C.S I have examined the patient and the H&P has been reviewed. There are no clinical changes since date of exam. Alfonso Castillo M.D., F.A.C.S.
--- NOTE | 2023-03-18 09:38 | DCINST_ITS ---
Discharge Instructions Procedure Breast Surgery Diet Discharge Diet: No restrictions Activity Discharge Activity: May Not Drive (for 2-3 days or while taking narcotic pain meds.) May shower in (days): 1 Lifting Restrictions: 10 pounds for 1 week. Dressing / Incision Call your doctor if your incision/area has: Continuous Slow Oozing and Sudden Increased Bleeding Call your doctor if you observe: Fever of 101 or Higher Suture Line Care: Avoid Pulling/Pushing and Avoid Pinching/Bending Remove Dressing in: 1 day Additional Dressing/Incision Instructions:: Remove bulky dressing tomorrow. May leave any opsite dressing for 3-4 days. Keep dressing in place until your follow-up appointment. Follow Up Care Test Results: Test results from this visit will be discussed in further detail at your follow- up appointment, if applicable. Discharge Plan Admission Attending Provider: Alfonso Castillo Primary Care Provider: Dexter Leon Discharge Orders/Prescriptions Prescriptions: No Action ascorbic acid (vitamin C) 500 mg capsule 500 mg PO DAILY cholecalciferol (vitamin D3) 50 mcg (2,000 unit) capsule 100 mcg PO DAILY coenzyme Q10 [CoQ-10] 100 mg Capsule 100 mg PO DAILY Multivitamin Gummies 200 mcg Tablet,Chewable 1 tab PO BID Azo Cranberry 250 mg Tablet,Chewable 250 mg PO BID Macular Health Formula 5-1-7.5 mg Capsule 1 cap PO DAILY Hair, Skin and Nails (biotin) 10,000 mcg Tablet,Chewable 10,000 mcg PO BID Referrals / Follow Up: Anastasia Earl DO [Med Staff - Active Staff] - Disposition Disposition (needs filled in before D/C Order can be placed): Home, Self Care
--- NOTE | 2023-03-18 10:09 | OP.PCM_ITS ---
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 The patient was taken to the stereotactic room placed prone on the table. The left breast was placed in the medial lateral view. The marking clip in question was identified. Stereotactic images were obtained. Digital information obtained on the single target site. The breast was prepped with Betadine. 1% lidocaine was used as a local an esthetic. 1 cc was used. 20-gauge Kopan's needle was advanced to depth +13 mm. On fast view demonstrated good localization. Tape and gauze dressing applied. Follow-up cc view demonstrated excellent localization. She was subsequently taken to the operating room. The patient was taken the op room placed upon the table underwent general anesthesia. The left arm was carefully wrapped with soft roll placed at right angles with an arm barrera. The left breast was sterilely prepped and draped. Curvilinear incision was made based upon the wire in the lower inner left breast. Transverse incision was made in the medial left breast. Sharp dissection down to down through the subcu tissue. The wire was identified. Because of the patient's previous hematoma there was a solidified mass involving this resolving hematoma and I dissected around this area with electrocautery. Lesion was excised intact. The wire was exited anteriorly short suture was placed superior and a long suture was placed laterally. He was given to mammography where specimen images were obtained showing do not needle wire look to be excellently resected. Final pathology pending. Hemostasis of the cavity was obtained with electrocautery and 3-0 Vicryl sutures were indicated. 4 corner marking clips were placed. The wound was closed in layers with a deep layer of interrupted 3-0 Vicryl and then a running subicular 4-0 Monocryl. Steri-Strips Telfa bulky dry dressings applied. Sponge and instrument and needle counts were reported to the surgeon to be correct. Specimen wire localized breast mass. Drains none. Blood loss minimal. The patient was taken to recovery room in satisfactory addition without apparent complication Alfonso Castillo M.D., F.A.C.S. Surgeon: Alfonso Castillo Type of Anesthesia: General and Local Anesthesiologist: Lissa Smalls
[2023-03-18] MEDS: Cefazolin 2 GM in 0.9% Normal Saline (100mL Bag) 100 ML IV (10:15)
[2023-03-18] MEDS: Bupivacaine Mpf 0.5% 30 ML VIAL (11:01)
[2023-03-18 11:19] VITALS: BP 159/72; BP 163/76; PULSE 110; RESP 16; TEMP 37.2; O2SAT 97
[2023-03-18 11:30] VITALS: BP 159/72; BP 162/68; PULSE 97; RESP 16; O2SAT 99
[2023-03-18 11:45] VITALS: BP 159/72; BP 164/69; PULSE 95; RESP 16; TEMP 36.9; O2SAT 100
[2023-03-18 12:49] VITALS: BP 141/71; BP 159/72; PULSE 88; RESP 16; TEMP 36.6; O2SAT 98
== END 2023-03-18 13:28 | disposition home or self-care (01) ==
LOC: SDC 07:42 → AC 07:44
PROVIDERS: PCP Family Medicine; Referring Provider Surgery; Visit Provider Surgery
PROC: 0HBV0ZZ Excision of Bilateral Breast, Open Approach (ICD-10-PCS; CPT 19302; principal; 2023-03-18 09:50)
DX: D05.12 Intraductal carcinoma in situ of left breast (principal); N64.89 Other specified disorders of breast; Z17.0 Estrogen receptor positive status [ER+]; R92.8 Other abnormal and inconclusive findings on diagnostic imaging of breast; Z85.3 Personal history of malignant neoplasm of breast; Z90.710 Acquired absence of both cervix and uterus; Z90.49 Acquired absence of other specified parts of digestive tract; Z86.010 Personal history of colon polyps
CPT/HCPCS: 19301; 19283; 00404; 19281; 36415; 76098; 80053; 85027; 88305; 88307; 93005; A4648; J7120; J2405

== ENCOUNTER → 2023-04-13 | Outpatient (CLI) | payer MEDICARE, OTHER, SELFPAY ==
--- NOTE | 2023-04-13 13:01 | MRI_ITS ---
EXAM: MR ABDOMEN WITHOUT INTRAVENOUS CONTRAST, MRCP PROTOCOL CLINICAL INDICATION: CYSTIC LESION OF PANCREATIC HEAD W/PROMINENT CBD TECHNIQUE: Multiplanar and multisequence MR images of the abdomen without intravenous contrast obtained with MRCP sequence. Three-dimensional post-processing reconstructions were performed. This report was created using [employer] report generation technology. COMPARISON: CT 03/13/2023 FINDINGS: LIMITATIONS: Exam is limited by motion artifact. LOWER THORAX: Unremarkable. No pleural effusion. LIVER: Simple, nonenhancing hepatic cyst. No required imaging follow-up needed given high likelihood of benign nature. GALLBLADDER AND BILE DUCTS: The common duct is normal in caliber measuring up to 7.5 mm and tapers normally to the ampulla. No choledocholithiasis or filling defects seen. No intrahepatic bile duct dilation. The gallbladder is not well-distended but no obvious gallbladder wall thickening. PANCREAS: 8 mm thin-walled T2 bright cyst of the pancreatic head is redemonstrated. There is NO clear communication with the biliary system/pancreatic duct. A second subcentimeter cystic lesion of the pancreatic tail measuring 5 mm is seen on image 12 of series 6, also not clearly communicating with the biliary system. SPLEEN: Unremarkable. Non-enlarged. ADRENALS: Unremarkable. No nodules. KIDNEYS AND URETERS: There are bilateral cortical and parapelvic renal cysts, none of which demonstrate mural nodules or septations. No required imaging follow-up needed given high likelihood of benign nature. INTRAPERITONEAL SPACE: Unremarkable. No ascites or other fluid collection. VASCULATURE: Unremarkable. Abdominal aorta is non-dilated. LYMPH NODES: No enlarged lymph nodes. MRI/MRCP Abdomen without Contrast IMPRESSION: 1. Pancreatic subcentimeter cysts. ACR White Paper guidelines (Isabel, et al. JACR 2017; 14(7):911-923) suggest a contrast-enhanced, pancreas-protocol abdominal CT or MR in 2 years. 2. No biliary obstruction/dilation. Electronically Signed: Mj Du MD ([place]) at 14:25 EST ,
== END | disposition home or self-care (01) ==
LOC: MRI 12:59
PROVIDERS: PCP Family Medicine; Referring Provider Family Medicine; Visit Provider Family Medicine
DX: K86.2 Cyst of pancreas (principal); K83.8 Other specified diseases of biliary tract
CPT/HCPCS: 74181

== ENCOUNTER → 2023-04-15 | Outpatient (CLI) | payer MEDICARE, OTHER, SELFPAY ==
--- NOTE | 2023-04-15 10:13 | CDU_ITS ---
Reason For Study: Carotid Stenosis Rt. Velocities/BP Lt. Velocities/BP Prox CCA 85.1/18.8 cm/sec. Prox CCA 94.1/15.5 cm/sec. Mid CCA 82.6/20.0 cm/sec. Mid CCA 84.2/15.5 cm/sec. Dist CCA 59.7/14.2 cm/sec. Dist CCA 80.6/17.9 cm/sec. Prox ICA 72.0/14.2 cm/sec. Prox ICA 57.2/13.8 cm/sec. Mid ICA 56.3/18.5 cm/sec. Mid ICA 63.9/17.6 cm/sec. Dist ICA 124.2/29.1 cm/sec. Dist ICA 153.9/37.5 cm/sec. Rt. ICA/CCA = 1.5. Lt. ICA/CCA = 1.8. Prox ECA 107.2/15.1 cm/sec. Prox ECA 101.4/17.9 cm/sec. Rt. Vert. 74.3/14.7 cm/sec. Lt. Vert. 39.1/13.8 cm/sec. Right Extracranial There is homogeneous, smooth atherosclerotic plaque noted in the right common carotid artery. There is intimal thickening but no significant atherosclerotic plaque noted in the right internal carotid artery. There is heterogeneous, irregular atherosclerotic plaque noted in the right external carotid artery. Antegrade flow is noted in the right vertebral artery. Left Extracranial There is homogeneous, smooth atherosclerotic plaque noted in the left common carotid artery. There is intimal thickening but no significant atherosclerotic plaque noted in the left internal carotid artery. There is heterogeneous, irregular atherosclerotic plaque noted in the left external carotid artery. Antegrade flow is noted in the left vertebral artery. Procedure Carotid Duplex [id number]. This is a Carotid Duplex examination using B-mode, color flow and specral Doppler. The exam was diagnostic. VL/Carotid Duplex Ultrasound Interpretation Summary Intimal thickening at the proximal right internal carotid artery with less than 50% stenosis Less than 50% stenosis right external carotid artery Minimal smooth plaque at the proximal left internal carotid artery with less th an 50% stenosis. Slightly increased velocity in the very distal left internal carotid artery had a position of tortuosity. Less than 50% stenosis left external carotid artery Patent antegrade vertebral arteries bilaterally Ordering Physician: Alfonso Castilol Referring Physician: Dexter Leon Performed By: Wally Myles RVT
== END | disposition home or self-care (01) ==
LOC: CVS 10:12
PROVIDERS: PCP Family Medicine; Referring Provider Surgery; Visit Provider Surgery
DX: I65.23 Occlusion and stenosis of bilateral carotid arteries (principal)
CPT/HCPCS: 93880

== ENCOUNTER → 2023-06-06 | Outpatient (CLI) | payer MEDICARE, OTHER, SELFPAY ==
--- OUTSIDE RECORDS SUMMARY | 2023-06-06 07:36 | XMS RPT_ITS | CCD ---
Author Name Unknown Address [address] [place] [address] Organization [facility] Care Team Providers Care Aquatics Specialist Name Role Phone Juan Castillo MD Unavailable [phone] Kervin Leon DO Primary Care Provider Antonio LEVINE MD, Sheng Unavailable FRANCESCO BLAIR Attending Unavailable JUAN CASTILLO Referring Unavailable MARLA, KERVIN A Primary Care Unavailable XAVI JOSHI Referring Unavail able MARLA, KERVIN A Primary Care Unavailable GENEVIEVE SOLITARIOEE Referring Unavailable MARLA, KERVIN A Primary Care Unavailable XAVI JOSHI Referring Unavail able MARLA, KERVIN A Primary Care Unavailable SHENG VALDEZ Referring Unavailable ARTIS LLOYD Attending Unavailable MARLA, KERVIN A Primary Care Unavailable XAVI JOSHI Attending Unavail able MARLA, KERVIN A Primary Care Unavailable FRANCESCO BLAIR Referring Unavailable FRANCESCO BLAIR Attending Unavailable MARLA, KERVIN A Primary Care Unavailable SHENG VALDEZ Attending Unavailable ROSSY FRANCESCO Halina Referring Unavailable MARLA, KERVIN A Primary Care Unavailable Allergies Allergy Classification Reported Allergen(s) Allergy Type Date of Onset Reaction(s) Facility (2 sources) sulfur Drug Allergy 6 Rash [facility] Work Phone: (15 sources) Sulfonamides (Antibiotic); Translations: [SULFA (SULFONAMIDE ANTIBIOTICS)] Propensity to adverse reactions 6 Intolerance [facility] Work Phone: Medications Completed/Discontinued Medications Medication Drug Class(es) Dates Sig (Normalized) Sig (Original) ascorbic acid (16 sources) Start: 08-03-2015 VITAMIN C GUMMIE CHEW 1 po twice daily ASCORBIC ACID CHEW [id number] Kervin Leon DO Problems Active Problems Problem Classification Problem Date Documented Date Episodic/Chronic Cancer of breast (20 sources) Malignant tumor of breast ; Translations: [Intraductal carcinoma in situ of breast] Onset: 06-09-2016 02-11-2017 Chronic Diverticulosis and diverticulitis (14 sources) Diverticulosis of colon; Translations: [Diverticulosis of large intestine without perforation or abscess without bleeding] Onset: 06-29-2006 06-29-2006 Chronic Menopausal disorders (14 sources) Atrophic vaginitis; Translations: [Postmenopausal atrophic vaginitis] Onset: 07-15-2006 07-15-2006 Chronic Osteoporosis (17 sources) Senile osteoporosis; Translations: [Age-related osteoporosis without current pathological fracture] Onset: 07-15-2006 07-15-2006 Chronic Prolapse of female genital organs (14 sources) Disorder of rectum; Translations: [Rectocele] Onset: 01-11-2010 01-11-2010 Chronic Past or Other Problems Problem Classification Problem Date Documented Da te Episodic/Chronic Cancer of cervix (14 sources) Carcinoma in situ of uterine cervix; Translations: [Carcinoma in situ of cervix, unspecified] Onset: 01-04-2009 01-04-2009 Episodic Other and unspecified benign neoplasm (14 sources) Benign neoplasm of colon; Translations: [Benign neoplasm of colon, unspecified] Onset: 06-29-2006 06-29-2006 Episodic Other and unspecified benign neoplasm (14 sources) History of polyp of colon; Translations: [Personal history of colonic polyps] Onset: 03-03-2011 03-03-2011 Episodic Other bone disease and musculoskeletal deformities (2 sources) Osteopenia; Translations: [Other specified disorders of bone density and structure, unspecified site] Onset: 08-03-2015 08-03-2015 Episodic Other circulatory disease (14 sources) Carotid bruit; Translations: [Other specified symptoms and signs involving the circulatory and respiratory systems] Onset: 07-25-2016 07-25-2016 Episodic Other screening for suspected conditions (not mental disorders or infectious disease) (6 sources) Patient encounter status; Translations: [Encounter for screening mammogram for malignant neoplasm of breast] Onset: 09-25-2022 Episodic Unclassified (2 sources) Family history of ischemic heart disease and other diseases of the circulatory system; Translations: [Family history of ischemic heart disease and other diseases of the circulatory system] Onset: 08-03-2015 08-03-2015 Episodic Results Test Name Value Interpretation Reference Range Facil ity Vital Signs Date Time Vital Sign Value Performing Clinician Facility 04-14-2023 15:17-0500 Body height 155 cm Francesco HidalgoEmme E2MS DO Work Phone: [facility] 04-14-2023 15:17-0500 Body temperature 97.59 [degF] Francesco Hidalgoi DO Work Phone: [facility] 04-14-2023 15:17-0500 Body weight 49.9 kg Francesco Hidalgoi [email or web address] Work Phone: [facility] 04-14-2023 15:17-0500 Diastolic blood pressure 87 mm[Hg] Francesco [employer] Work Phone: [facility] 04-14-2023 15:17-0500 Heart rate 74 /min Francesco [employer] Work Phone: [facility] 04-14-2023 15:17-0500 SaO2% (BldA) [Mass fraction] 98 % Francesco [employer] Work Phone: [facility] 04-14-2023 15:17-0500 Systolic blood pressure 172 mm[Hg] Francesco [employer] Work Phone: [facility] 04-08-2023 10:39-0500 Diastolic blood pressure 82 mm[Hg] Sheng Valdez MD, MD Work Phone: [facility] 04-08-2023 10:39-0500 Systolic blood pressure 180 mm[Hg] Sheng Valdez MD, MD Work Phone: [facility] 04-08-2023 10:34-0500 Body temperature 97.2 [degF] Sheng Valdez MD, MD Work Phone: [facility] 04-08-2023 10:34-0500 Body weight 49.9 kg Sheng Valdez MD, MD Work Phone: [facility] 04-08-2023 10:34-0500 Heart rate 89 /min Sheng Valdez MD, MD Work Phone: [facility] 04-08-2023 10:34-0500 SaO2% (BldA) [Mass fraction] 98 % Sheng Valdez MD, MD Work Phone: [facility] 01-23-2023 13:01-0400 Body height 154.5 cm Francesco Masci DO Work Phone: [facility] 01-23-2023 13:01-0400 Body temperature 97.5 [degF] Francesco Masci DO Work Phone: [facility] 01-23-2023 13:01-0400 Body weight 50.35 kg Francesco Masci DO Work Phone: [facility] 01-23-2023 13:01-0400 Diastolic blood pressure 75 mm[Hg] Francesco Masci DO Work Phone: [facility] 01-23-2023 13:01-0400 Heart rate 87 /min Francesco Masci DO Work Phone: [facility] 01-23-2023 13:01-0400 SaO2% (BldA) [Mass fraction] 99 % Francesco Masci DO Work Phone: [facility] 01-23-2023 13:01-0400 Systolic blood pressure 157 mm[Hg] Francesco Masci DO Work Phone: [facility] 04-15-2022 10:53-0500 Body weight 50.8 kg Xavi Verde MD Work Phone: [facility] 04-15-2022 10:53-0500 Diastolic blood pressure 82 mm[Hg] Xavi Verde MD Work Phone: [facility] 04-15-2022 10:53-0500 Systolic blood pressure 126 mm[Hg] Xavi Verde MD Work Phone: [facility] 02-11-2017 07:58-0400 BMI (Body Mass Index) 20.45 kg/m2 Juan Castillo MD [facility] [employer] Work Phone: 02-11-2017 07:58-0400 BP Diastolic 82 mm[Hg] Juan Castillo MD [facility] [employer] Work Phone: 02-11-2017 07:58-0400 BP Systolic 172 mm[Hg] Juan Castillo MD [facility] [employer] Work Phone: 02-11-2017 07:58-0400 Height 156.21 cm Juan Castillo MD [facility] [employer] Work Phone: 02-11-2017 07:58-0400 Pulse (Heart Rate) 95 /min Juan Castillo MD [facility] [employer] Work Phone: 02-11-2017 07:58-0400 Respiratory Rate 18 /min Juan Castillo MD [facility] [employer] Work Phone: 02-11-2017 07:58-0400 Weight 49.9 kg Juan Castillo MD [facility] [employer] Work Phone: 08-03-2015 08:11-0400 Body Temperature 98.4 [degF] Juan Castillo MD [facility] [employer] Work Phone: 08-03-2015 08:11-0400 BSA (Body Surface Area) 1.52 m2 Juan Castillo MD [facility] [employer] Work Phone: Encounters Encounter Date Encounter Type Care Provider Facility Start: 06-02-2023 End: 06-02-2023 ambulatory SHENG VALDEZ Facility:[facility] Start: 05-18-2023 End: 05-19-2023 ambulatory XAVI VERDE Facility:[facility] Start: 05-18-2023 Encounter for gynecological examination (general) (routine) without abnormal findings XAVI VERDE [facility] Start: 04-14-2023 End: 04-14-2023 ambulatory Francesco Blair DO Work Phone: Hematology/Oncology Procedures Date Procedure Procedure Detail Performing Clinician Start: 06-28-2023 Digital breast tomosynthesis unilateral Xavi Verde MD Work Phone: Start: 09-29-2022 Dxa bone density sammy dy 1/> sites axial skel Kathie Solitario [employer] Work Phone: Start: 09-25-2022 Screening digital br east tomosynthesis bi Xavi Verde MD Work Phone: Start: 02-11-2017 End: 02-11-2017 Mammogram, screening Juan Castillo MD Work Phone: Plan of Treatment Date Care Activity Detail Author Start: 01-09-2023 Covid-19 Vaccine () Covid-19 Vaccine ( season) [facility] Start: 01-09-2023 Influenza vaccination [facility] Start: 07-09-2022 COVID-19 VACCINE (6 - Moderna series) COVID-19 VACCINE (6 - Moderna series) [facility] Start: 05-11-2022 ADVANCE DIRECTIVE DISCUSSION ADVANCE DIRECTIVE DISCUSSION [facility] Start: 05-11-2022 DEPRESSION ASSESSMENT DEPRESSION ASSESSMENT [facility] Start: 01-09-2022 Influenza vaccination INFLUENZA (#1) [facility] Start: 05-11-2021 ADVANCE DIRECTIVE DISCUSSION ADVANCE DIRECTIVE DISCUSSION [facility] Start: 05-11-2021 DEPRESSION ASSESSMENT DEPRESSION ASSESSMENT [facility] Start: 02-11-2017 End: 02-11-2017 Mammogram, screening Mammogram-Bilateral, Screening, Bilateral [facility] [employer] Work Phone: Start: 02-11-2017 End: 02-11-2017 Appointment Appointment [facility] [employer] Work Phone: Start: 03-11-2016 End: 08-03-2015 *CMP Complete Metabolic Panel *CMP Complete Metabolic Panel [facility] [employer] Work Phone: Start: 03-11-2016 End: 08-03-2015 Lipid panel [AGGREGATE] *Lipid Profile [facility] [employer] Work Phone: Start: 03-03-2014 DIABETES SCREEN DIABETES SCREEN [facility] Start: 03-03-2014 Diabetes Screening Diabetes Screening [facility] Start: 12-04-2007 Pneumococcal Vaccine: 65+ (1 - PCV) Pneumococcal Vaccine: 65+ (1 - PCV) [facility] Start: 12-04-2007 PNEUMOCOCCAL: 65+ (1 - PCV) PNEUMOCOCCAL: 65+ (1 - PCV) [facility] Start: 2002 RSV Vaccine (1 - 1-dose 60+ series) RSV Vaccine (1 - 1-dose 60+ series) [facility] Start: 1992 SHINGRIX VACCINE (1 of 2) SHINGRIX VACCINE (1 of 2) [facility] Start: 1961 Urine microalbumin profile [facility] End: 07-18-2023 DXA-AXIAL SKELETON DXA-AXIAL SKELETON Radiology Routine Osteoporosis without current pathological fracture, unspecified osteoporosis type 1 Occurrences starting 06/19/2022 until 07/18/2023 [facility] Work Phone: Payers Date Payer Category Payer Medicare MEDICARE MEDICAR E A AND B [id number] 2012-Present [phone] [address] [address] [place] [address] Medicare [id number] 2012 Medicare [id number] 2012 Private Health Insurance [facility] [id number] 2012-Present [phone] [address] [place] [address] Indemnity [id number] 2012 Unknown [id number] Social History Date Type Detail Facility Start: 01-16-2022 Tobacco smoking stat us NEIS Never smoked tobacco [facility] Start: 01-16-2022 Tobacco use and exposure Smoke less tobacco non-user [facility] Start: 04-15-2022 End: 04-08-2023 Alcohol intake Current non-drinker of alcohol (finding) [facility] Start: 1940 Sex Assigned At Not on file [facility] Start: 04-15-2022 End: 09-25-2022 History of Social function [facility] Start: 04-15-2022 End: 09-25-2022 Tobacco use panel [facility] National Score (1-10 0), lower number is lower risk 62 [facility] Clinical Notes 05-21-2016 to 06-02-2023 Telephone Encounter - Henrietta Dowell RN - 04/15/2023 2:21 PM ESTTelephone Encounter - Azra Jameson RN - 04/13/2023 9:35 AM ESTTelephone Encounter - Henrietta Dowell RN - 04/10/2023 3:08 PM EST Note Date & Type Note Facility 06-02-2023 Note Education (SIMA) JEREMY RAMSEY ([id number]) 1940 F Date Time Provider Department 06/02/23 12:30 PM ARTIS LLOYD Reason for Visit: Nutrition Assessment [1591] Visit 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 - multivitamin with minerals (HAIR,SKIN AND NAILS ORAL) Take 1 tablet by mouth twice daily. - OTC PRODUCT Take 1 capsule by mouth once daily. Ro-Ld-Wyjpcq-Rypq-Ctbvlr-[id number] (Macular Health Formula) 5-1-7.5 mg Capsule - cholecalciferol, vitamin D3, (VITAMIN D3 ORAL) Take 1 tablet by mouth twice daily. - risedronate 35 mg TbEC Take 1 tablet by mouth one time a week. In AM with cup of water on empty stomach. Nothing else by mouth and stay upright for 30 min. - cranberry fruit concentrate (AZO CRANBERRY ORAL) Take 1 tablet by mouth twice daily. - ascorbic acid (VITAMIN C ORAL) Take 2 tablets by mouth once daily. - calcium carbonate/vitamin d3(CALCIUM 600 + D(3) 600 MG (1,500)-200 UNIT TAB) Take 2 tablets by mouth twice daily. - COMPOUNDED PRESCRIPTION Phytosterol and Brunswick 3 tablet daily - DAILY MULTIVITAMIN TAB Take 1 tablet by mouth once daily. - ASPIRIN 81 MG TAB Take one(1) tablet daily. Encounter Status:Closed by ARTIS LLOYD on 06/02/23 [facility] 06-02-2023 Note HNO ID: [id number] Author: ARTIS LLOYD RD Service: ? Author Type: Registered Dietitian Type: Progress Notes Filed: 06/02/2023 13:11 Note Text: Oncology Nutrition Therapy Initial Assessment RECOMMENDED MALNUTRITION DIAGNOSIS: NO MALNUTRITION IDENTIFIED Nutrition Diagnosis: Behavioral-Environmental: Food and nutrition related knowledge deficit, related to, prior exposure to incorrect information, as evidenced by verbalizes inaccurate information Nutrition Intervention: - Eat from all food groups - Limit added sugar to less than 30g per day - Try a Mediterranean style of eating (see handout) - Reduce vitamin C Nutrition Monitoring AND Evaluation: PO intake Supplement tolerance Wt status Biochemical Markers Skin integrity Plan of care Patient Condition: Pt presents for nutrition counseling for DCIS of breast. Pt is currently being treated with pretreatment. Pt denies food allergies/intolerances. Nutrition Assessment: Patient is stable from a nutritional standpoint. Patient's symptoms are: Constipation Diet History (24hr recall): Breakfast - hot cereal/ fruit (usually blueberries) - 730-8am Snack - cookies Lunch - leftovers or pb and j or egg salad sandwich Snack - Dinner - meat, potato, vegetable Snack - ice cream Beverages - 1 cup coffee, hot tea Alcohol- no Vitamins/Supplements - a lot - 1000mg vitamin c, AZO, macular health, Hair skin and nails, CoQ10, States the chiropractor told her that sugar feeds cancer and she desires to have Low fat foods, low sugar foods Topics addressed: eating in a well balanced way by choosing from each food group. Discussed diet for inflammation, healthy snacks and reducing unneeded supplements. Educational materials provided: Mediterranean Diet, snack list Readiness to Learn: Cognitive ability: Alert and oriented Motivation to learn: Eager Family support: Unable to assess - Family not present Instruction provided to: Patient Patient learns best by: Multiple Methods Factors affecting learning: None Physical limitations affecting learning: None Anthropometrics: HEIGHT/WEIGHT/BSA HEIGHT BODY SURFACE AREA WEIGHT 01/16/2022 1.49 113 lb 04/15/2022 1.48 112 lb 01/23/2023 5' .827 1.47 111 lb 04/08/2023 1.46 110 lb 04/14/2023 5' 1.024 1.47 110 lb 05/18/2023 5' 1.5 1.46 109 lb Estimated body mass index is 20.26 kg/m? as calculated from the following: Height as of 05/18/23: 156.2 cm (5' 1.5 ). Weight as of 05/18/23: 49.4 kg (109 lb). Resting Metabolic Rate: 915 Weight Change: -1.8% in 1 year Allergies: Sulfa (Sulfonamide Antibiotics) Medications: Current Outpatient Medications Medication Sig Dispense Refill ubidecarenone (COQ-10 ORAL) Take by mouth. multivitamin with minerals (HAIR,SKIN AND NAILS ORAL) Take 1 tablet by mouth twice daily. OTC PRODUCT Take 1 capsule by mouth once daily. Dr-Wm-Gxhkjl-Amyh-Lkaoqp-Vy018 (Macular Health Formula) 5-1-7.5 mg Capsule cholecalciferol, vitamin D3, (VITAMIN D3 ORAL) Take 1 tablet by mouth twice daily. risedronate 35 mg TbEC Take 1 tablet by mouth one time a week. In AM with cup of water on empty stomach. Nothing else by mouth and stay upright for 30 min. (Patient not taking: Reported on 01/23/2023) 12 tablet 3 cranberry fruit concentrate (AZO CRANBERRY ORAL) Take 1 tablet by mouth twice daily. ascorbic acid (VITAMIN C ORAL) Take 2 tablets by mouth once daily. calcium carbonate/vitamin d3(CALCIUM 600 + D(3) 600 MG (1,500)-200 UNIT TAB) Take 2 tablets by mouth twice daily. 0 COMPOUNDED PRESCRIPTION Phytosterol and Brunswick 3 tablet daily (Patient not taking: Reported on 01/23/2023) 0 DAILY MULTIVITAMIN TAB Take 1 tablet by mouth once daily. 0 ASPIRIN 81 MG TAB Take one(1) tablet daily. (Patient not taking: Reported on 01/23/2023) 0 No current facility-administered medications for this visit. Need for Follow up: not needed at this time Referred/Supervised by: Dr. Rossy GARCIA Billing Type: Initial Assess/15 min 2 units Billed Time: 30 minutes Signed by: Artis Lloyd RD, LD [facility] 05-18-2023 Note HNO ID: [id number] Author: XAVI JOSHI MD Service: ? 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 Postmenopausal: Yes HRT use: No. Last Pap: 02/23/2014 History of abnormal pap: Yes Last mammogram: 2022 DCIS History of abnormal mammogram: Yes Sexually active: NO History of STDS: None Patient concerns for STD exposure: No. Exercise: walking Diet: balanced OB History T2 L2 SAB0 IAB0 Ectopic0 Multiple0 Live Births0 [employer] History LMP: Hysterectomy Age at Menarche: Age at First : Age at Menopause: [employer] History Comments: Sexual Activity: Not Currently; Male Contraception: Surgical PAST MEDICAL HISTORY Diagnosis Date Benign neoplasm of colon Cancer of breast (HCC) 07/2016 dcis Carcinoma in situ of cervix uteri 1985 Paps always normal since and TVH in 2002 Cataract Diverticulosis of colon (without mention of hemorrhage) Personal history of colonic polyps Senile osteoporosis Synovitis and tenosynovitis in diseases classified elsewhere LEFT ELBOW Urinary tract infection, site not specified Recurrent UTI's PAST SURGICAL HISTORY Procedure Laterality Date ANTERIOR COLPORRAPHY RPR CYSTOCELE W/CYSTO 10/06/2006 APPENDECTOMY BIOPSY BREAST OPEN INCISIONAL benign BX BREAST W/DEVICE 1ST LESION STEREOTACTIC GUID Left 05/30/2016 COLONOSCOPY FLX DX W/COLLJ SPEC WHEN PFRMD 06/29/2006 COLONOSCOPY FLX DX W/COLLJ SPEC WHEN PFRMD 03/03/14 Colonoscopy COLONOSCOPY FLX DX W/COLLJ SPEC WHEN PFRMD 03/09/2017 repeat 5 years COLONOSCOPY W/BIOPSY SINGLE/MULTIPLE 12/28/06 COLPOSCOPY CERVIX UPPER/ADJACENT VAGINA 1985 COLSC FLX W/RMVL OF TUMOR POLYP LESION SNARE TQ 01/03/08 COLSC FLX W/RMVL OF TUMOR POLYP LESION SNARE TQ 03/03/11 CONIZATION CERVIX W/WO DANDC RPR KNIFE/LASER 1985 Cryocautery prior to cone DILATION AND CURETTAGE DXAND/THER NONOBSTETRIC EXC BREAST LES PREOP PLMT RAD MARKER OPEN 1 LES Right 07/29/2016 LIG/TRNSXJ FLP TUBE ABDL/VAG APPR UNI/BI PAST SURGICAL HISTORY OF Left 08/26/2016 Cataract surgery - left eye VAGINAL HYSTERECTOMY UTERUS 250 GM/< 01/26/2003 Abn bleeding FAMILY HISTORY Problem Relation Age of Onset Cervical Cancer Mother 37 Heart Father Hypertension Brother Parkinson?s Disease Brother Heart Brother Hypertension Brother SOCIAL HISTORY Social History Tobacco Use Smoking status: Never Smokeless tobacco: Never Vaping Use Vaping Use: Never used Substance Use Topics Alcohol use: No Drug use: No REVIEW OF SYSTEMS Abdomen: No abdominal pain, nausea, vomiting, diarrhea, or constipation. No bloating, early satiety, indigestion, or increased flatulence. Bladder: No dysuria, gross hematuria, urinary frequency, urinary urgency, or incontinence Breast: No breast lumps, nipple d/c, overlying skin changes, redness or skin retraction Allergies and current medication updated:Yes EXAM: BP 132/74 Ht 5' 1.5 (1.56m) Wt 109 lb (49.4kg) BMI 20.26 kg/(m2). GENERAL: pleasant, female in no apparent distress HEENT: Normocephalic, atraumatic, mucus membranes moist, and no lesions NECK: Supple, full range of motion, no adenopathy, and thyroid normal DERMATOLOGY: Normal, without lesions, non-icteric, and non-hirsute BREAST: soft, non-tender, symmetric, no dominant mass, normal nipple-areolar complex, no lymphadenopathy, no nipple discharge, and well healed lumpectomy scar ABDOMEN: soft, non-tender, and no masses PELVIC: external genitalia normal, normal Bartholin's glands, urethra, Ubly's glands, no vulvar lesions, good vaginal support, physiologic discharge present, normal appearing perineal body and perianal region, cervix surgically absent BIMANUAL: no adnexal masses, non-tender, and uterus surgically absent RECTOVAGINAL: deferred. NEURO: alert and oriented x3,exam grossly non-focal EXTREMITIES: normal ASSESSMENT/PLAN: 1) Health maintenance: Pap/HPV screening no longer needed Mammogram up to date Nutrition, exercise and routine health maintenance exams reviewed. Calcium/Vitamin D supplementation information provided. Colon cancer screening: up to date with screening BMD: up to date 2) Follow up one year or sooner as needed Xavi Askew MD [facility] 04-15-[address] Valdez aware I spoke with pt this am and she reports that she has decided to decline radiation therapy at this time. Pt has follw up scheduled with Dr Blair 04/14/23 that she plans to keep. Please call pt on Thursday04/13/[address] Valdez request. Ask her what she has decided about doing radiation treatments. documented in this encounter [facility] 04-14-2023 Note HNO ID: [id number] Author: Francesco Blair, DO Service: ? Author Type: Physician Type: Progress Notes Filed: 04/14/2023 4:10 PM Note Text: Oncologic problem(s): 1) Recurrent DCIS. HPI: Patient is an 82 year-old female who who has a past medical history significant for colon polyps, bilateral carotid stenosis, diverticulosis, osteoporosis and DCIS. Was found have an abnormality in the left breast on a screening mammogram. She underwent a core needle stereotactic biopsy on 05/30/2016. Pathology demonstrated DCIS. The pattern was cribriform. Nuclear grade was intermediate. Calcifications were present. Necrosis was noted to be present, expansive (central comedo necrosis). No evidence of invasive carcinoma was observed. Patient then underwent LEFT breast lumpectomy. Pathology: MICROSCOPIC DIAGNOSIS Left breast, needle localization biopsy: Ductal carcinoma in situ. See cancer summary below. Specimen - partial breast. Procedure - excision with double wire-guided localization. Lymph node sampling - no lymph node present Specimen integrity - single intact specimen. Specimen size - 6 x 6 x 2.8 cm Specimen laterality - left Tumor site - not specified Size (extent) of DCIS - 1 x 0.5 x 0.5 cm Number of blocks with DCIS - 6 Number of blocks examined - 9 Histologic type - ductal carcinoma in situ. Architectural patterns - cribriform and solid Nuclear grade - Grade 2 (intermediate) Necrosis - present, central (expansive comedo necrosis). Margins: Margins uninvolved by ductal carcinoma in situ. The tumor is 0.2 cm away from the closest superior margin. Treatment effect: Response to presurgical (neoadjuvant) therapy - no known presurgical therapy. Lymph nodes: No lymph nodes submitted. Distant metastasis - not applicable Additional Pathologic Findings - fibrocystic changes Ancillary Studies from previous specimen ([id number] / [id number]): ER - positive (7%, very weak) RI - negative (0%) Her2 elliott ([facility]) - negative (1+) Her2 by FISH - not performed. Microcalcifications - present in DCIS Clinical history - please make reference to previous specimen ([id number]) left breast, stereotactic needle core biopsy with diagnosis of ductal carcinoma in situ. Pathologic Staging: pTis(DCIS) pNx Mx Was noted to have an area of asymmetry in the left breast on screening mammogram 09/25/2022. Diagnostic mammogram 11/05/2022 demonstrated grouped pleomorphic calcifications in the left breast inferior medial quadrant middle depth. Underwent stereotactic biopsy on 11/13/2022. Pathology demonstrated ductal carcinoma in situ. The architectural pattern was solid and comedo. Nuclear grade was 2. Necrosis not identified. Calcification present. She developed a hematoma that was able to be compressed out. Because of a second area of microcalcifications, underwent left stereotactic breast biopsy on 01/16/2023. Pathology demonstrated hyalinized fibroadenoma with focal microcalcifications. Negative for atypia or malignancy. Presents for ongoing oncologic management. Interim history: Left breast lumpectomy 03/17/2023. Pathology: Left breast mass, lumpectomy: Ductal carcinoma in situ. See cancer synoptic report below. AM:lorelei 03/24/2023 COMMENT DUCTAL CARCINOMA IN SITU SUMMARY: Procedure - wire-guided lumpectomy Specimen - partial breast Laterality - left breast Size of DCIS - 1.2 x 0.6 cm Number of blocks - 7 of 12 blocks Architectural pattern - solid Nuclear grade - 3/3 Necrosis - focally present Margins - uninvolved by in situ carcinoma. Distance from closest margin - 2.0 mm from anterior margin. Regional lymph nodes - no lymph nodes found. Microcalcifications - present in neoplastic and non-neoplastic tissue. Additional Pathologic Findings - fibrocystic change, microfibroadenoma. Ancillary Studies from previous specimen ([id number] / [id number]): ER - negative (0%) RI - negative (0%) Her2 elliott ([facility]) - negative (0) Clinical history - left breast microcalcifications. PATHOLOGIC STAGING: T(DCIS) Nx Mx Was seen by radiation oncology. Radiation advised. She declined. PMH, medications and allergies as below personally reviewed by me today. Any changes documented in appropriate section. ROS: Constitutional: Denies episodes of fever and night sweats. Not significantly fatigued. Normal appetite. Neuro: Denies JOHNSON, vertigo, dizziness and imbalance. Denies symptoms of neuropathy. HEENT: No recent change in voice or hearing. Will be undergoing OS cataract surgery. Resp: Denies cough, wheeze and hemoptysis. Denies shortness of breath at rest. Denies BARRY. CVS: Denies exertional chest pain, PND, orthopnea and LE edema. GI: Denies dysgeusia. Denies symptoms of stomatitis. Denies dysphagia and odynophagia. Denies reflux, n/v, change in bowel habits and abdominal pain. : Denies dysuria or gross hematuria. No symptoms of bladder outlet obstruction. Endo: Denies hot fla (more content not included)... [facility] 04-14-2023 History of Present illness Narrative Oncologic problem(s): 1) Recurrent DCIS. HPI: Patient is an 82 year-old female who who has a past medical history significant for colon polyps, bilateral carotid stenosis, diverticulosis, osteoporosis and DCIS. Was found have an abnormality in the left breast on a screening mammogram. She underwent a core needle stereotactic biopsy on 05/30/2016. Pathology demonstrated DCIS. The pattern was cribriform. Nuclear grade was intermediate. Calcifications were present. Necrosis was noted to be present, expansive (central comedo necrosis). No evidence of invasive carcinoma was observed. Patient then underwent LEFT breast lumpectomy. Pathology: MICROSCOPIC DIAGNOSIS Left breast, needle localization biopsy: Ductal carcinoma in situ. See cancer summary below. Specimen - partial breast. Procedure - excision with double wire-guided localization. Lymph node sampling - no lymph node present Specimen integrity - single intact specimen. Specimen size - 6 x 6 x 2.8 cm Specimen laterality - left Tumor site - not specified Size (extent) of DCIS - 1 x 0.5 x 0.5 cm Number of blocks with DCIS - 6 Number of blocks examined - 9 Histologic type - ductal carcinoma in situ. Architectural patterns - cribriform and solid Nuclear grade - Grade 2 (intermediate) Necrosis - present, central (expansive comedo necrosis). Margins: Margins uninvolved by ductal carcinoma in situ. The tumor is 0.2 cm away from the closest superior margin. Treatment effect: Response to presurgical (neoadjuvant) therapy - no known presurgical therapy. Lymph nodes: No lymph nodes submitted. Distant metastasis - not applicable Additional Pathologic Findings - fibrocystic changes Ancillary Studies from previous specimen ([id number] / [id number]): ER - positive (7%, very weak) RI - negative (0%) Her2 elliott ([facility]) - negative (1+) Her2 by FISH - not performed. Microcalcifications - present in DCIS Clinical history - please make reference to previous specimen ([id number]) left breast, stereotactic needle core biopsy with diagnosis of ductal carcinoma in situ. Pathologic Staging: pTis(DCIS) pNx Mx Was noted to have an area of asymmetry in the left breast on screening mammogram 09/25/2022. Diagnostic mammogram 11/05/2022 demonstrated grouped pleomorphic calcifications in the left breast inferior medial quadrant middle depth. Underwent stereotactic biopsy on 11/13/2022. Pathology demonstrated ductal carcinoma in situ. The architectural pattern was solid and comedo. Nuclear grade was 2. Necrosis not identified. Calcification present. She developed a hematoma that was able to be compressed out. Because of a second area of microcalcifications, underwent left stereotactic breast biopsy on 01/16/2023. Pathology demonstrated hyalinized fibroadenoma with focal microcalcifications. Negative for atypia or malignancy. Presents for ongoing oncologic management. Interim history: Left breast lumpectomy 03/17/2023. Pathology: Left breast mass, lumpectomy: Ductal carcinoma in situ. See cancer synoptic report below. AM:lorelei 03/24/2023 COMMENT DUCTAL CARCINOMA IN SITU SUMMARY: Procedure - wire-guided lumpectomy Specimen - partial breast Laterality - left breast Size of DCIS - 1.2 x 0.6 cm Number of blocks - 7 of 12 blocks Architectural pattern - solid Nuclear grade - 3/3 Necrosis - focally present Margins - uninvolved by in situ carcinoma. Distance from closest margin - 2.0 mm from anterior margin. Regional lymph nodes - no lymph nodes found. Microcalcifications - present in neoplastic and non-neoplastic tissue. Additional Pathologic Findings - fibrocystic change, microfibroadenoma. Ancillary Studies from previous specimen ([id number] / [id number]): ER - negative (0%) RI - negative (0%) Her2 elliott ([facility]) - negative (0) Clinical history - left breast microcalcifications. PATHOLOGIC STAGING: T(DCIS) Nx Mx Was seen by radiation oncology. Radiation advised. She declined. PMH, medications and allergies as below personally reviewed by me today. Any changes documented in appropriate section. ROS: Constitutional: Denies episodes of fever and night sweats. Not significantly fatigued. Normal appetite. Neuro: Denies JOHNSON, vertigo, dizziness and imbalance. Denies symptoms of neuropathy. HEENT: No recent change in voice or hearing. Will be undergoing OS cataract surgery. Resp: Denies cough, wheeze and hemoptysis. Denies shortness of breath at rest. Denies BARRY. CVS: Denies exertional chest pain, PND, orthopnea and LE edema. GI: Denies dysgeusia. Denies symptoms of stomatitis. Denies dysphagia and odynophagia. Denies reflux, n/v, change in bowel habits and abdominal pain. : Denies dysuria or gross hematuria. No symptoms of bladder outlet obstruction. Endo: Denies hot flashes. Denies polyuria and polydipsia. Denies heat and cold intolerance. Musculoskeletal: Denies bone, back, joint and muscular pain. Derm: Denies rash. Denies jaundice and diffuse pruritis. Heme: Denies unusual bleeding and unexplained bruising. Psych: Normal mood. PHYSICAL EXAM: Vitals: Blood pressure 172/87, pulse 74, temperature 36.4 C (97.6 F), height 155 cm (5' 1.02 ), weight 49.9 kg (110 lb), SpO2 98%. Well-appearing and in no acute distress. EYES: Sclerae are anicteric bilaterally. LYMPHATIC: There is no palpable cervical, supraclavicular, axillary adenopathy. BREAST: chaperoned. Well-healed transverse incision medial left breast. 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 -Patient did not see radiation oncologist or return for office visit after initial evaluation here. -Recurrent DCIS left breast in same quadrant as original disease. -ER negative. -Reviewed pathology. -Encouraged her to consider radiation, but she has given it thought and talked with her and declines. -No indication for tamoxifen. Plan: -Screening mammogram followed by office visit in November 2023. -Encouraged latest COVID vaccination as well as RSV vaccination. She has an appointment with Dr. Leon next week and will discuss with him. Portions of this documentation were copied and pasted from previous office visit notes in order to provide a cohesive continuity of the history. The note has been reviewed and edited and updated as necessary. I spent a total of 20 minutes on the date of the service which included preparing to see the patient, [id number] patient care, completing clinical documentation, obtaining and/or reviewing separately obtained history, performing a medically appropriate examination, counseling and educating the patient/family/caregiver, ordering medications, tests, or procedures, communicating with other HCPs (not separately reported), and communicating results to the patient/family/caregiver. Francesco Blair DO documented in this encounter [facility] 04-08-2023 Note HNO ID: [id number] Author: Sheng Valdez MD, MD Service: ? Author Type: Physician Type: Progress Notes Filed: 04/10/2023 3:06 PM Note Text: Radiation Oncology - New Patient/Consult Note PATIENT NAME: Jeremy Ramsey PATIENT REQUESTING PROVIDER: Dr. 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 It's ER negative (0%), RI negative (0%) and Her2 negative. HPI: 82 year old female who presents with above diagnosis, for an opinion regarding the role of radiation therapy in the management of the patient's disease. Final recommendations will be communicated back to the requesting physician by way of the shared medical record, or letter to requesting physician via [place] mail. 82 year old woman with history of left breast DCIS in 2017. She underwent left breast lumpectomy at that time and pathology showed grade 2 DCIS measuring 1 x 0.5 x 0.5 cm with comedo necrosis. Surgical margins were negative with the closest margin of 0.2 cm from the superior margin. It's ER low positive (7%, weak), RI negative (0%) and Her2 1+. She had an abnormal screening mammogram on 09/25/22. It showed an asymmetry with calcifications in the left breast at 10 o'clock middle depth. Diagnostic left mammogram on 11/05/22 showed that the grouped pleomorphic calcifications in the left breast are suspicious of malignancy. Stereotactic biopsy on 11/13/2022 showed grade 2 DCIS without necrosis. Stereotactic biopsy of the left breast microcalcification lesion in the lower quadrant on 01/16/23 showed benign findings. She underwent left breast lumpectomy on 03/17/23. Pathology showed high grade DCIS measuring 1.2 x 0.6 cm. There was necrosis. It's ER negative (0%), RI negative (0%) and Her2 negative. ALLERGIES Allergen Reactions Sulfa (Sulfonamide * Intolerance Current Outpatient Medications on File Prior to Visit Medication Sig multivitamin with minerals (HAIR,SKIN AND NAILS ORAL) Take 1 tablet by mouth twice daily. OTC PRODUCT Take 1 capsule by mouth once daily. [id number] (Macular Health Formula) 5-1-7.5 mg Capsule cholecalciferol, vitamin D3, (VITAMIN D3 ORAL) Take 1 tablet by mouth twice daily. cranberry fruit concentrate (AZO CRANBERRY ORAL) Take 1 tablet by mouth twice daily. ascorbic acid (VITAMIN C ORAL) Take 2 tablets by mouth once daily. calcium carbonate/vitamin d3(CALCIUM 600 + D(3) 600 MG (1,500)-200 UNIT TAB) Take 2 tablets by mouth twice daily. DAILY MULTIVITAMIN TAB Take 1 tablet by mouth once daily. risedronate 35 mg TbEC Take 1 tablet by mouth one time a week. In AM with cup of water on empty stomach. Nothing else by mouth and stay upright for 30 min. (Patient not taking: Reported on 01/23/2023) COMPOUNDED PRESCRIPTION Phytosterol and [place] 3 tablet daily (Patient not taking: Reported on 01/23/2023) ASPIRIN 81 MG TAB Take one(1) tablet daily. (Patient not taking: Reported on 01/23/2023) No current facility-administered medications on file prior to visit. PAST MEDICAL HISTORY Diagnosis Date Benign neoplasm of colon Cancer of breast (HCC) 07/2016 dcis Carcinoma in situ of cervix uteri 1985 Paps always normal since and TVH in 2002 Cataract Diverticulosis of colon (without mention of hemorrhage) Personal history of colonic polyps Senile osteoporosis Synovitis and tenosynovitis in diseases classified elsewhere LEFT ELBOW Urinary tract infection, site not specified Recurrent UTI's Prior radiation therapy, collagen vascular disease, or inflammatory bowel disease: No Any implanted or external electric devices? No status: Patient states there is no possibility she is at this time. Educated on risks of during treatment. PAST SURGICAL HISTORY Procedure Laterality Date ANTERIOR COLPORRAPHY RPR CYSTOCELE W/CYSTO 10/06/2006 APPENDECTOMY BIOPSY BREAST OPEN INCISIONAL benign BX BREAST W/DEVICE 1ST LESION STEREOTACTIC GUID Left 05/30/2016 COLONOSCOPY FLX DX W/COLLJ SPEC WHEN PFRMD 06/29/2006 COLONOSCOPY FLX DX W/COLLJ SPEC WHEN PFRMD 03/03/14 Colonoscopy COLONOSCOPY FLX DX W/COLLJ SPEC WHEN PFRMD 03/09/2017 repeat 5 years COLONOSCOPY W/BIOPSY SINGLE/MULTIPLE 12/28/06 COLPOSCOPY CERVIX UPPER/ADJACENT VAGINA 1985 COLSC FLX W/RMVL OF TUMOR POLYP LESION SNARE TQ 01/03/08 COLSC FLX W/RMVL OF TUMOR POLYP LESION SNARE TQ 03/03/11 CONIZATION CERVIX W/WO DANDC RPR KNIFE/LASER 1986 Cryocautery prior to cone DILATION AND CURETTAGE DXAND/THER NONOBSTETRIC EXC BREAST LES PREOP PLMT RAD MARKER OPEN 1 LES Right 07/29/2016 LIG/TRNSXJ FLP TUBE ABDL/VAG APPR UNI/BI PAST SURGICAL HISTORY OF Left 08/26/2016 Cataract surgery - left eye VAGINAL HYSTERECTOMY UTERUS 250 GM/< 01/26/2003 Abn bleeding FAMILY HISTORY Problem Relation Age of Onset Cervical Cancer Mother 37 Heart Father Hypertension Brother Parkinson?s Disease Brother Heart Brother Hypertension Brother (more content not included)... [facility] 04-08-2023 History of Present illness Narrative Radiation Oncology - New Patient/Consult Note PATIENT NAME: Jeremy Ramsey PATIENT REQUESTING PROVIDER: Dr. 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 It's ER negative (0%), RI negative (0%) and Her2 negative. HPI: 82 year old female who presents with above diagnosis, for an opinion regarding the role of radiation therapy in the management of the patient's disease. Final recommendations will be communicated back to the requesting physician by way of the shared medical record, or letter to requesting physician via [place] mail. 82 year old woman with history of left breast DCIS in 2017. She underwent left breast lumpectomy at that time and pathology showed grade 2 DCIS measuring 1 x 0.5 x 0.5 cm with comedo necrosis. Surgical margins were negative with the closest margin of 0.2 cm from the superior margin. It's ER low positive (7%, weak), RI negative (0%) and Her2 1+. She had an abnormal screening mammogram on 09/25/22. It showed an asymmetry with calcifications in the left breast at 10 o'clock middle depth. Diagnostic left mammogram on 11/05/22 showed that the grouped pleomorphic calcifications in the left breast are suspicious of malignancy. Stereotactic biopsy on 11/13/2022 showed grade 2 DCIS without necrosis. Stereotactic biopsy of the left breast microcalcification lesion in the lower quadrant on 01/16/23 showed benign findings. She underwent left breast lumpectomy on 03/17/23. Pathology showed high grade DCIS measuring 1.2 x 0.6 cm. There was necrosis. It's ER negative (0%), RI negative (0%) and Her2 negative. ALLERGIES Allergen Reactions Sulfa (Sulfonamide * Intolerance Current Outpatient Medications on File Prior to Visit Medication Sig multivitamin with minerals (HAIR,SKIN AND NAILS ORAL) Take 1 tablet by mouth twice daily. OTC PRODUCT Take 1 capsule by mouth once daily. [id number] (Macular Health Formula) 5-1-7.5 mg Capsule cholecalciferol, vitamin D3, (VITAMIN D3 ORAL) Take 1 tablet by mouth twice daily. cranberry fruit concentrate (AZO CRANBERRY ORAL) Take 1 tablet by mouth twice daily. ascorbic acid (VITAMIN C ORAL) Take 2 tablets by mouth once daily. calcium carbonate/vitamin d3(CALCIUM 600 + D(3) 600 MG (1,500)-200 UNIT TAB) Take 2 tablets by mouth twice daily. DAILY MULTIVITAMIN TAB Take 1 tablet by mouth once daily. risedronate 35 mg TbEC Take 1 tablet by mouth one time a week. In AM with cup of water on empty stomach. Nothing else by mouth and stay upright for 30 min. (Patient not taking: Reported on 01/23/2023) COMPOUNDED PRESCRIPTION Phytosterol and [place] 3 tablet daily (Patient not taking: Reported on 01/23/2023) ASPIRIN 81 MG TAB Take one(1) tablet daily. (Patient not taking: Reported on 01/23/2023) No current facility-administered medications on file prior to visit. PAST MEDICAL HISTORY Diagnosis Date Benign neoplasm of colon Cancer of breast (HCC) 07/2016 dcis Carcinoma in situ of cervix uteri 1985 Paps always normal since and TVH in 2002 Cataract Diverticulosis of colon (without mention of hemorrhage) Personal history of colonic polyps Senile osteoporosis Synovitis and tenosynovitis in diseases classified elsewhere LEFT ELBOW Urinary tract infection, site not specified Recurrent UTI's Prior radiation therapy, collagen vascular disease, or inflammatory bowel disease: No Any implanted or external electric devices? No status: Patient states there is no possibility she is at this time. Educated on risks of during treatment. PAST SURGICAL HISTORY Procedure Laterality Date ANTERIOR COLPORRAPHY RPR CYSTOCELE W/CYSTO 10/06/2006 APPENDECTOMY BIOPSY BREAST OPEN INCISIONAL benign BX BREAST W/DEVICE 1ST LESION STEREOTACTIC GUID Left 05/30/2016 COLONOSCOPY FLX DX W/COLLJ SPEC WHEN PFRMD 06/29/2006 COLONOSCOPY FLX DX W/COLLJ SPEC WHEN PFRMD 03/03/14 Colonoscopy COLONOSCOPY FLX DX W/COLLJ SPEC WHEN PFRMD 03/09/2017 repeat 5 years COLONOSCOPY W/BIOPSY SINGLE/MULTIPLE 12/28/06 COLPOSCOPY CERVIX UPPER/ADJACENT VAGINA 1986 COLSC FLX W/RMVL OF TUMOR POLYP LESION SNARE TQ 01/03/08 COLSC FLX W/RMVL OF TUMOR POLYP LESION SNARE TQ 03/03/11 CONIZATION CERVIX W/WO D&C RPR KNIFE/LASER 1985 Cryocautery prior to cone DILATION & CURETTAGE DX&/THER NONOBSTETRIC EXC BREAST LES PREOP PLMT RAD MARKER OPEN 1 LES Right 07/29/2016 LIG/TRNSXJ FLP TUBE ABDL/VAG APPR UNI/BI PAST SURGICAL HISTORY OF Left 08/26/2016 Cataract surgery - left eye VAGINAL HYSTERECTOMY UTERUS 250 GM/< 01/26/2003 Abn bleeding FAMILY HISTORY Problem Relation Age of Onset Cervical Cancer Mother 37 Heart Father Hypertension Brother Parkinson s Disease Brother Heart Brother Hypertension Brother Social History Tobacco Use Smoking status: Never Smokeless tobacco: Never Vaping Use Vaping Use: Never used Substance Use Topics Alcohol use: No Drug use: No COMPLETE REVIEW OF SYSTEMS: GENERAL: feeling well without fatigue, no recent change in weight HEENT: denies JOHNSON, change in hearing or vision, no other ENT complaints NECK: denies swelling or pain in neck RESPIRATORY: no cough, no wheezing or shortness of breath CARDIOVASCULAR: no chest pain, no palpitations GI: Occasional right upper quadrant abdominal pain. MRI is scheduled on 04/13/23. : urination is normal MUSCULOSKELETAL: denies any painful or swollen joints, no muscle aches SKIN: no rash HEMATOLOGY/LYMPHOLOGY: negative for prolonged bleeding, no swollen lymph nodes NEURO: no numbness or paresthesias and no weakness of the extremities PHYSICAL EXAM: VS: BP 180/82 Pulse 89 Temp 36.2 C (97.2 F) (Temporal) Wt 49.9 kg (110 lb) SpO2 98% BMI 20.90 kg/m KPS: 100 General Appearance: Alert and oriented. No acute distress. HEENT: NCAT. Sclera anicteric. EOMI. Neck: Normal ROM. Chest: No respiratory distress. Musculoskeletal: Normal ROM in extremities. Neuro: Speech fluent. Gait normal. No focal deficits. Hematologic: No signs of active bleeding. RADIOLOGY/LABORATORY DATA: see HPI ASSESSMENT AND PLAN: 82 year old woman with recurrent high grade DCIS of the left breast s/p left breast lumpectomy. It's ER negative (0%), RI negative (0%) and Her2 negative. She had ER low positive DCIS in 2017. Now she has local recurrence with ER negative high grade DCIS and had lumpectomy. I recommend radiation treatment to the left breast. I explained the rationale, benefits, alternative management options and potential complications of radiation treatment to the patient and she understands. She wishes to think over. If she declines radiation treatment, then mastectomy is recommended. She will let us know of her decision early next week. Thank you very much for allowing us to participate in her care. Signed by: Sheng Valdez MD cc: Kervin Leon [id number] [place] [address] Francesco [place] [address] [facility] [id number] Juan Castillo documented in this encounter [facility] 04-08-2023 Nurse Note Radiation Therapy - Nursing Note (Consult) PATIENT NAME: Jeremy Ramsey PATIENT April 08, 2023 [facility] FACILITY/LOCATION: [place] Chief Complaint: L Breast Cancer Reason for visit: Consult. Referring physician: External provider Jeremías Walter Subjective Data: no complaints, feels she does not want to do radiation Additional Data Do you want to see a Interactive Video Technician? No Are you interested in information about fertility? No Status: Post-menopausal Stress Scale: On a scale of 0 to 10, what number best describes how much distress you have experienced in the past week?(0 being no distress and 10 being extreme distress) 6 Social work notified: Pt denied need to see social group worker at this time. SIGNED by: Henrietta Dowell RN documented in this encounter [facility] 04-01-2023 Miscellaneous Notes Pt scheduled for consult with Dr Valdez on 04/08. Pt is having a lumpectomy 03/18/23. We will watch for path/op note. I attempted to contact pt on both of her contact numbers to inquire if she was able to make a treatment decision after her appointment with Dr Castillo. I had to leave a message requesting pt to call this office with the above information. Pt Sees Dr Castillo on 02/09/23 and will likely call this office after that appointment. documented in this encounter [facility] 03-27-2023 Miscellaneous Notes Spoke with patient and scheduled. Phoebe Ruano Please schedule new patient consult with Dr. Valdez. DX left breast cancer and also an OV with Dr. Blair- may use an est complex. Shantell Spain LPN this pt is to see Dr Valdez also, had declined back in Jan So if she is contacted ask if she wants to see Radiation Oncologist- Dr Valdez. Called patient, no answer, left a VM requesting a call back. Patient had an OV with Dr. Blair in January. Planning on discussing rationale for why she needs an OV. Claire Davis RN Patient returned call and would not schedule follow up. She states she does not know why she needs to be seen by Dr. Blair. Please advise. Received fax from Dr Castillo's office indicating pt will be having a lumpectomy. Dr Blair would like to see pt about 2 weeks after surgery. I left a message on pt VM to call office. If she knows the surgery date. please schedule OV with Dr Blair. Jami Huang LPN documented in this encounter [facility] 01-23-2023 Note HNO ID: [id number] Author: Francesco Blair, DO Service: ? Author Type: Physician Type: Progress Notes Filed: 01/23/2023 2:08 PM Note Text: Patient referred by Dr. Castillo for DCIS. The impression and plan will be communicated by way of the shared electronic record or faxed under separate cover letter. HPI: Patient is an 82 year-old female who who has a past medical history significant for colon polyps, bilateral carotid stenosis, diverticulosis, osteoporosis and DCIS. Was found have an abnormality in the left breast on a screening mammogram. She underwent a core needle stereotactic biopsy on 05/30/2016. Pathology demonstrated DCIS. The pattern was cribriform. Nuclear grade was intermediate. Calcifications were present. Necrosis was noted to be present, expansive (central comedo necrosis). No evidence of invasive carcinoma was observed. Patient then underwent LEFT breast lumpectomy. Pathology: MICROSCOPIC DIAGNOSIS Left breast, needle localization biopsy: Ductal carcinoma in situ. See cancer summary below. Specimen - partial breast. Procedure - excision with double wire-guided localization. Lymph node sampling - no lymph node present Specimen integrity - single intact specimen. Specimen size - 6 x 6 x 2.8 cm Specimen laterality - left Tumor site - not specified Size (extent) of DCIS - 1 x 0.5 x 0.5 cm Number of blocks with DCIS - 6 Number of blocks examined - 9 Histologic type - ductal carcinoma in situ. Architectural patterns - cribriform and solid Nuclear grade - Grade 2 (intermediate) Necrosis - present, central (expansive comedo necrosis). Margins: Margins uninvolved by ductal carcinoma in situ. The tumor is 0.2 cm away from the closest superior margin. Treatment effect: Response to presurgical (neoadjuvant) therapy - no known presurgical therapy. Lymph nodes: No lymph nodes submitted. Distant metastasis - not applicable Additional Pathologic Findings - fibrocystic changes Ancillary Studies from previous specimen ([id number] / [id number]): ER - positive (7%, very weak) RI - negative (0%) Her2 elliott ([facility]) - negative (1+) Her2 by FISH - not performed. Microcalcifications - present in DCIS Clinical history - please make reference to previous specimen ([id number]) left breast, stereotactic needle core biopsy with diagnosis of ductal carcinoma in situ. Pathologic Staging: pTis(DCIS) pNx Mx Interim history: The patient was noted to have an area of asymmetry in the left breast on screening mammogram 09/25/2022. Diagnostic mammogram 11/05/2022 demonstrated grouped pleomorphic calcifications in the left breast inferior medial quadrant middle depth. Underwent stereotactic biopsy on 11/13/2022. Pathology demonstrated ductal carcinoma in situ. The architectural pattern was solid and comedo. Nuclear grade was 2. Necrosis not identified. Calcification present. She developed a hematoma that was able to be compressed out. Because of a second area of microcalcifications, underwent left stereotactic breast biopsy on 01/16/2023. Pathology demonstrated hyalinized fibroadenoma with focal microcalcifications. Negative for atypia or malignancy. She has no complaints today. PMH, medications and allergies as below personally reviewed by me today. Any changes documented in appropriate section. ROS: Constitutional: Denies episodes of fever and night sweats. Not significantly fatigued. Normal appetite. Neuro: Denies JOHNSON, vertigo, dizziness and imbalance. Denies symptoms of neuropathy. HEENT: No recent change in voice or hearing. Will be undergoing OS cataract surgery. Resp: Denies cough, wheeze and hemoptysis. Denies shortness of breath at rest. Denies BARRY. CVS: Denies exertional chest pain, PND, orthopnea and LE edema. GI: Denies dysgeusia. Denies symptoms of stomatitis. Denies dysphagia and odynophagia. Denies reflux, n/v, change in bowel habits and abdominal pain. : Denies dysuria or gross hematuria. No symptoms of bladder outlet obstruction. Endo: Denies hot flashes. Denies polyuria and polydipsia. Denies heat and cold intolerance. Musculoskeletal: Denies bone, back, joint and muscular pain. Derm: Denies rash. Denies jaundice and diffuse pruritis. Heme: Denies unusual bleeding and unexplained bruising. Psych: Normal mood. PHYSICAL EXAM: Vitals: Blood pressure 157/75, pulse 87, temperature 36.4 ?C (97.5 ?F), height 154.5 cm (5' 0.83 ), weight 50.3 kg (111 lb), SpO2 99 %. Well-appearing and in no acute distress. EYES: Sclerae are anicteric bilaterally. LYMPHATIC: There is no palpable cervical, supraclavicular, axillary adenopathy. BREAST: MUNITIONS HANDLER SUPERVISOR chaperoned. Biopsy site lower outer quadrant. Minimal bruising. No mass appreciated. 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 Patient did not see radiation oncologist or return for office vi (more content not included)... [facility] 01-23-2023 History of Present illness Narrative Patient referred by Dr. Castillo for DCIS. The impression and plan will be communicated by way of the shared electronic record or faxed under separate cover letter. HPI: Patient is an 82 year-old female who who has a past medical history significant for colon polyps, bilateral carotid stenosis, diverticulosis, osteoporosis and DCIS. Was found have an abnormality in the left breast on a screening mammogram. She underwent a core needle stereotactic biopsy on 05/30/2016. Pathology demonstrated DCIS. The pattern was cribriform. Nuclear grade was intermediate. Calcifications were present. Necrosis was noted to be present, expansive (central comedo necrosis). No evidence of invasive carcinoma was observed. Patient then underwent LEFT breast lumpectomy. Pathology: MICROSCOPIC DIAGNOSIS Left breast, needle localization biopsy: Ductal carcinoma in situ. See cancer summary below. Specimen - partial breast. Procedure - excision with double wire-guided localization. Lymph node sampling - no lymph node present Specimen integrity - single intact specimen. Specimen size - 6 x 6 x 2.8 cm Specimen laterality - left Tumor site - not specified Size (extent) of DCIS - 1 x 0.5 x 0.5 cm Number of blocks with DCIS - 6 Number of blocks examined - 9 Histologic type - ductal carcinoma in situ. Architectural patterns - cribriform and solid Nuclear grade - Grade 2 (intermediate) Necrosis - present, central (expansive comedo necrosis). Margins: Margins uninvolved by ductal carcinoma in situ. The tumor is 0.2 cm away from the closest superior margin. Treatment effect: Response to presurgical (neoadjuvant) therapy - no known presurgical therapy. Lymph nodes: No lymph nodes submitted. Distant metastasis - not applicable Additional Pathologic Findings - fibrocystic changes Ancillary Studies from previous specimen ([id number] / [id number]): ER - positive (7%, very weak) RI - negative (0%) Her2 elliott ([facility]) - negative (1+) Her2 by FISH - not performed. Microcalcifications - present in DCIS Clinical history - please make reference to previous specimen ([id number]) left breast, stereotactic needle core biopsy with diagnosis of ductal carcinoma in situ. Pathologic Staging: pTis(DCIS) pNx Mx Interim history: The patient was noted to have an area of asymmetry in the left breast on screening mammogram 09/25/2022. Diagnostic mammogram 11/05/2022 demonstrated grouped pleomorphic calcifications in the left breast inferior medial quadrant middle depth. Underwent stereotactic biopsy on 11/13/2022. Pathology demonstrated ductal carcinoma in situ. The architectural pattern was solid and comedo. Nuclear grade was 2. Necrosis not identified. Calcification present. She developed a hematoma that was able to be compressed out. Because of a second area of microcalcifications, underwent left stereotactic breast biopsy on 01/16/2023. Pathology demonstrated hyalinized fibroadenoma with focal microcalcifications. Negative for atypia or malignancy. She has no complaints today. PMH, medications and allergies as below personally reviewed by me today. Any changes documented in appropriate section. ROS: Constitutional: Denies episodes of fever and night sweats. Not significantly fatigued. Normal appetite. Neuro: Denies JOHNSON, vertigo, dizziness and imbalance. Denies symptoms of neuropathy. HEENT: No recent change in voice or hearing. Will be undergoing OS cataract surgery. Resp: Denies cough, wheeze and hemoptysis. Denies shortness of breath at rest. Denies BARRY. CVS: Denies exertional chest pain, PND, orthopnea and LE edema. GI: Denies dysgeusia. Denies symptoms of stomatitis. Denies dysphagia and odynophagia. Denies reflux, n/v, change in bowel habits and abdominal pain. : Denies dysuria or gross hematuria. No symptoms of bladder outlet obstruction. Endo: Denies hot flashes. Denies polyuria and polydipsia. Denies heat and cold intolerance. Musculoskeletal: Denies bone, back, joint and muscular pain. Derm: Denies rash. Denies jaundice and diffuse pruritis. Heme: Denies unusual bleeding and unexplained bruising. Psych: Normal mood. PHYSICAL EXAM: Vitals: Blood pressure 157/75, pulse 87, temperature 36.4 C (97.5 F), height 154.5 cm (5' 0.83 ), weight 50.3 kg (111 lb), SpO2 99 %. Well-appearing and in no acute distress. EYES: Sclerae are anicteric bilaterally. LYMPHATIC: There is no palpable cervical, supraclavicular, axillary adenopathy. BREAST: MUNITIONS HANDLER SUPERVISOR chaperoned. Biopsy site lower outer quadrant. Minimal bruising. No mass appreciated. 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 Patient did not see radiation oncologist or return for office visit. -Recurrent DCIS left breast in same quadrant as original disease. It is ER negative. -Discussed standard of care would be lumpectomy followed RT and tamoxifen. Mastectomy would be an option if she would not want radiation. Plan: -Referral to Dr. Valdez for opinion on radiation so she can make a better informed decision regarding surgery. -OV following surgery. Portions of this documentation were copied and pasted from previous office visit notes in order to provide a cohesive continuity of the history. The note has been reviewed and edited and updated as necessary. I spent a total of 30 minutes on the date of the service which included preparing to see the patient, [id number] patient care, completing clinical documentation, obtaining and/or reviewing separately obtained history, performing a medically appropriate examination, counseling and educating the patient/family/caregiver, communicating with other HCPs (not separately reported), and communicating results to the patient/family/caregiver. Francesco Blair DO documented in this encounter [facility] 12-29-2022 Miscellaneous Notes Scheduled as directed. Phoebe Ruano PSS- please schedule patient for a new patient appointment 01/23/2023 @ 1:30. Patient is aware to be here at 1:00. Referring physician : Dr. Juan Castillo DX: ductal carcinoma in situ Patient is scheduled for 2 nd biopsy of left breast 01/16/2023 @ [facility]. Shantell Spain LPN documented in this encounter [facility] 11-05-2022 Note HNO ID: [id number] Author: RT Beverly(R) Service: ? Author Type: Artificial Pearl Maker Type: Progress Notes Filed: 11/05/2022 9:29 AM Note Text: Radiology Service Progress Note PATIENT NAME: Jeremy Ramsey DATE OF SERVICE: November 05, 2022 TIME: 9:28 AM PATIENT IDENTITY VERIFICATION COMPLETED USING TWO (2) IDENTIFIERS: Name and Date of confirmed by patient verbally. FALL SCREENING: Has the patient had 2 falls in the last year or 1 fall with injury or currently using an Ambulatory Assistive Device (Walker, Cane, Wheelchair, Crutches, etc.)? No PATIENT GENDER DATA: Female. status: : No status: NO. PATIENT RELEVANT IMPLANT DATA REVIEWED: Not Applicable RADIOLOGY DEPARTMENT: Mammography PERIPHERAL IV DATA: Not applicable SIGNED BY: RT Beverly(R) November 05, 2022 9:28 AM [facility] 11-05-2022 History of Present illness Narrative Radiology Service Progress Note PATIENT NAME: Jeremy Ramsey DATE OF SERVICE: November 05, 2022 TIME: 9:28 AM PATIENT IDENTITY VERIFICATION COMPLETED USING TWO (2) IDENTIFIERS: Name and Date of confirmed by patient verbally. FALL SCREENING: Has the patient had 2 falls in the last year or 1 fall with injury or currently using an Ambulatory Assistive Device (Walker, Cane, Wheelchair, Crutches, etc.)? No PATIENT GENDER DATA: Female. status: : No status: NO. PATIENT RELEVANT IMPLANT DATA REVIEWED: Not Applicable RADIOLOGY DEPARTMENT: Mammography PERIPHERAL IV DATA: Not applicable SIGNED BY: RT Beverly(R) November 05, 2022 9:28 AM documented in this encounter [facility] 10-15-2022 Miscellaneous Notes CD/report READY FOR FINANCIAL SERVICES EDUCATION CONSULTANT AT [facility] Sent to office at [facility] for continuation of care Pt asking if office can send imaging and reports to [facility] for Dr. Juan Castillo from her mammo on 09/25. Pt willing to sign release if needed. documented in this encounter [facility] 09-29-2022 Note HNO ID: [id number] Author: RT Ricci(R) Service: ? Author Type: Technologist Type: Progress Notes Filed: 09/29/2022 12:45 PM Note Text: Radiology Service Progress Note PATIENT NAME: Jeremy Ramsey DATE OF SERVICE: September 29, 2022 TIME: 12:32 PM PATIENT IDENTITY VERIFICATION COMPLETED USING TWO (2) IDENTIFIERS: Name and Date of confirmed by patient verbally. FALL SCREENING: Has the patient had 2 falls in the last year or 1 fall with injury or currently using an Ambulatory Assistive Device (Walker, Cane, Wheelchair, Crutches, etc.)? No PATIENT GENDER DATA: Female. status: : No status: NO. PATIENT RELEVANT IMPLANT DATA REVIEWED: Not Applicable RADIOLOGY DEPARTMENT: Bone Density PERIPHERAL IV DATA: Not applicable SIGNED BY: RT Ricci(R) September 29, 2022 12:32 PM [facility] 09-29-2022 History of Present illness Narrative Radiology Service Progress Note PATIENT NAME: Jeremy Ramsey DATE OF SERVICE: September 29, 2022 TIME: 12:32 PM PATIENT IDENTITY VERIFICATION COMPLETED USING TWO (2) IDENTIFIERS: Name and Date of confirmed by patient verbally. FALL SCREENING: Has the patient had 2 falls in the last year or 1 fall with injury or currently using an Ambulatory Assistive Device (Walker, Cane, Wheelchair, Crutches, etc.)? No PATIENT GENDER DATA: Female. status: : No status: NO. PATIENT RELEVANT IMPLANT DATA REVIEWED: Not Applicable RADIOLOGY DEPARTMENT: Bone Density PERIPHERAL IV DATA: Not applicable SIGNED BY: RT Ricci(Km) September 29, 2022 12:32 PM documented in this encounter [facility] 09-25-2022 Note HNO ID: [id number] Author: MARLENA Powers) Service: ? Author Type: Technologist Type: Progress Notes Filed: 09/25/2022 10:58 AM Note Text: Radiology Service Progress Note PATIENT NAME: Jeremy Ramsey DATE OF SERVICE: September 25, 2022 TIME: 10:58 AM PATIENT IDENTITY VERIFICATION COMPLETED USING TWO (2) IDENTIFIERS: Name and Date of confirmed by patient verbally. FALL SCREENING: Has the patient had 2 falls in the last year or 1 fall with injury or currently using an Ambulatory Assistive Device (Walker, Cane, Wheelchair, Crutches, etc.)? No PATIENT GENDER DATA: Female. status: : No status: NO. PATIENT RELEVANT IMPLANT DATA REVIEWED: Not Applicable RADIOLOGY DEPARTMENT: Mammography PERIPHERAL IV DATA: Not applicable SIGNED BY: RT Gio(Km) September 25, 2022 10:58 AM [facility] 09-25-2022 History of Present illness Narrative Radiology Service Progress Note PATIENT NAME: Jeremy Ramsey DATE OF SERVICE: September 25, 2022 TIME: 10:58 AM PATIENT IDENTITY VERIFICATION COMPLETED USING TWO (2) IDENTIFIERS: Name and Date of confirmed by patient verbally. FALL SCREENING: Has the patient had 2 falls in the last year or 1 fall with injury or currently using an Ambulatory Assistive Device (Walker, Cane, Wheelchair, Crutches, etc.)? No PATIENT GENDER DATA: Female. status: : No status: NO. PATIENT RELEVANT IMPLANT DATA REVIEWED: Not Applicable RADIOLOGY DEPARTMENT: Mammography PERIPHERAL IV DATA: Not applicable SIGNED BY: RT Gio(R) September 25, 2022 10:58 AM documented in this encounter [facility] 06-18-2022 Instructions Ragini Jackson RN - 06/18/2022 12:35 PM EST BONE MINERAL DENSITY PATIENT INSTRUCTIONS ======== Bone mineral density testing measures the amount of calcium in certain parts of your bones. This information determines how strong your bones are. The test is used to detect osteoporosis, a disease in which the bone's mineral content and density are low, increasing a person's risk of fractures. The lumbar spine (lower back) and the hip are the skeletal sites usually examined. For the test, remember that: 1. You cannot take this test if you are . 2. Eat a normal diet on the day of the test. 3. Take your medications as you normally would. 4. DO NOT take calcium supplements (such as Tums) for 24 hours before the test. 5. On the day of the test, leave valuables (jewelry or credit cards) at home. 6. The test should be performed prior to oral, rectal or IV contrast studies, or at least 7 days after any of these studies. For the test, you may be asked to wear a hospital gown. You will lie on your back, on a padded table, in a comfortable position. Generally, you can resume your usual activities immediately. documented in this encounter [facility] 06-18-2022 Miscellaneous Notes Patient had annual with Dr Verde 04/15/2022 Patient would like to have a Bone Density test scheduled same day as mammogram on September 25. Please advise and call paitent. documented in this encounter [facility] 05-26-2022 Miscellaneous Notes That is fine. Thank you for notifying office. Patient notified. States she has been on some kind of medication for over 20 years. Originally was Fosamax, then switched to risedronate around 2013. She is planning to stop it for now unless provider recommends differently. Ting Hancock RN You can take for 5 years, sometimes longer depending on response to them and any side effects. Sometimes take a break and then restarting them is ok too. Doesn't look like she has had a rx for them in some time. Patient states a friend told her that it isn't good to be taking Risedronate for more than 3-5 years. Patient states she took Fosamax before starting this. This information concerned her. Asking for DM's feedback about this. Patient aware provider is out this afternoon. Last BMD was 09/13/20. Ricarda Stewart RN documented in this encounter [facility] 04-15-2022 History of Present illness Narrative Jeremy is a 81 year old who presents for an annual gynecologic exam without complaints. Just lost her dog of 14 years. Postmenopausal: Yes HRT use: No. Last Pap: 02/23/2014 normal HPV: N/A History of abnormal pap: yes 1986 LEEP Last mammogram: 2021 normal History of abnormal mammogram: yes Sexually active: No History of STDS: None Patient concerns for STD exposure: No. Hot flashes: No Night sweats: No Vaginal dryness: No Exercise: active Diet: balanced OB History T2 L2 SAB0 IAB0 Ectopic0 Multiple0 Live Births0 Caseworker Protective Services History LMP: Hysterectomy Age at Menarche: Age at First : Age at Menopause: [employer]worker [employer] History Comments: Sexual Activity: Not Currently; Male Contraception: Surgical PAST MEDICAL HISTORY Diagnosis Date Benign neoplasm of colon Cancer of breast (HCC) 07/2016 dcis Carcinoma in situ of cervix uteri 1985 Paps always normal since and TVH in 2002 Cataract Diverticulosis of colon (without mention of hemorrhage) Personal history of colonic polyps Senile osteoporosis Synovitis and tenosynovitis in diseases classified elsewhere LEFT ELBOW Urinary tract infection, site not specified Recurrent UTI's PAST SURGICAL HISTORY Procedure Laterality Date ANTERIOR COLPORRAPHY RPR CYSTOCELE W/CYSTO 10/06/2006 APPENDECTOMY BIOPSY BREAST OPEN INCISIONAL benign BX BREAST W/DEVICE 1ST LESION STEREOTACTIC GUID Left 05/30/2016 COLONOSCOPY FLX DX W/COLLJ SPEC WHEN PFRMD 06/29/2006 COLONOSCOPY FLX DX W/COLLJ SPEC WHEN PFRMD 03/03/14 Colonoscopy COLONOSCOPY FLX DX W/COLLJ SPEC WHEN PFRMD 03/09/2017 repeat 5 years COLONOSCOPY W/BIOPSY SINGLE/MULTIPLE 12/28/06 COLPOSCOPY CERVIX UPPER/ADJACENT VAGINA 1985 COLSC FLX W/RMVL OF TUMOR POLYP LESION SNARE TQ 01/03/08 COLSC FLX W/RMVL OF TUMOR POLYP LESION SNARE TQ 03/03/11 CONIZATION CERVIX W/WO D&C RPR KNIFE/LASER 1986 Cryocautery prior to cone DILATION & CURETTAGE DX&/THER NONOBSTETRIC EXC BREAST LES PREOP PLMT RAD MARKER OPEN 1 LES Right 07/29/2016 LIG/TRNSXJ FLP TUBE ABDL/VAG APPR UNI/BI PAST SURGICAL HISTORY OF Left 08/26/2016 Cataract surgery - left eye VAGINAL HYSTERECTOMY UTERUS 250 GM/< 01/26/2003 Abn bleeding FAMILY HISTORY Problem Relation Age of Onset Cervical Cancer Mother 37 Heart Father Hypertension Brother Heart Brother other (Other) Brother Parkinson's 2011 SOCIAL HISTORY Social History Tobacco Use Smoking status: Never Smokeless tobacco: Never Vaping Use Vaping Use: Never used Substance Use Topics Alcohol use: No Drug use: No REVIEW OF SYSTEMS Abdomen: No abdominal pain, nausea, vomiting, diarrhea, or constipation. No bloating, early satiety, indigestion, or increased flatulence. Bladder: No dysuria, gross hematuria, urinary frequency, urinary urgency, or incontinence Breast: No breast lumps, nipple d/c, overlying skin changes, redness or skin retraction Allergies and current medication updated:Yes EXAM: BP 126/82 Wt 112 lb (50.8kg) GENERAL: pleasant, female in no apparent distress HEENT: Normocephalic, atraumatic, mucus membranes moist, and no lesions NECK: Supple, full range of motion, no adenopathy, and thyroid normal DERMATOLOGY: Normal, without lesions, non-icteric, and non-hirsute BREAST: soft, non-tender, symmetric, no dominant mass, normal nipple-areolar complex, no lymphadenopathy, and no nipple discharge ABDOMEN: soft, non-tender, and no masses PELVIC: external genitalia normal, normal Bartholin's glands, urethra, Ubly's glands, no vulvar lesions, good vaginal support, physiologic discharge present, normal appearing perineal body and perianal region BIMANUAL: no adnexal masses, non-tender, uterus surgically absent, and scar tissue palpable - stable. RECTOVAGINAL: deferred. NEURO: alert and oriented x3,exam grossly non-focal EXTREMITIES: normal ASSESSMENT/PLAN: 1) Health maintenance: Pap/HPV screening no longer needed Mammogram ordered Mammogram up to date Nutrition, exercise and routine health maintenance exams reviewed. Calcium/Vitamin D supplementation information provided. Colon cancer screening: scheduled at [facility] BMD: up to date 2) Follow up one year or sooner as needed Xavi Askew MD Watch Assembly Inspector offered: Patient declines. documented in this encounter [facility] documented as of this encounter (statuses as of 04/15/2022) [facility]01-11-2017 History of Past illness Narrative* Problem Noted Date Resolved Date Abnormal mammogram 05/21/2016 08/31/2016 Dyspareunia 01/04/2009 01/11/2010 Vaginal enterocele, congenital or acquired 07/1501/04/2009 Cystocele, midline 07/15/2006 01/04/2009 Rectocele 07/15/2006 01/04/2009 documented as of this encounter (statuses as of 05/26/2022) [facility] History of Past illness Narrative* Problem Noted Date Resolved Date Abnormal mammogram 05/21/2016 08/31/2016 Dyspareunia 01/04/2009 01/11/2010 Vaginal enterocele, congenital or acquired 07/1501/04/2009 Cystocele, midline 07/15/2006 01/04/2009 Rectocele 07/15/2006 01/04/2009 documented as of this encounter (statuses as of 06/19/2022) [facility] History of Past illness Narrative* Problem Noted Date Resolved Date Abnormal mammogram 05/21/2016 08/31/2016 Dyspareunia 01/04/2009 01/11/2010 Vaginal enterocele, congenital or acquired 07/1501/04/2009 Cystocele, midline 07/15/2006 01/04/2009 Rectocele 07/15/2006 01/04/2009 documented as of this encounter (statuses as of 10/16/2022) [facility] History of Past illness Narrative* Problem Noted Date Diagnosed Date Resolved Date Abnormal mammogram 05/21/2016 7 Dyspareunia 01/04/2009 01/11/2010 Vaginal enterocele, congenital or acquired 07/15/2006 01/04/2009 Cystocele, midline 07/15/2006 9 Rectocele 07/15/2006 01/04/2009 documented as of this encounter (statuses as of 12/29/2022) [facility] History of Past illness Narrative* Problem Noted Date Diagnosed Date Resolved Date Abnormal mammogram 05/21/2016 7 Dyspareunia 01/04/2009 01/11/2010 Vaginal enterocele, congenital or acquired 07/15/2006 01/04/2009 Cystocele, midline 07/15/2006 9 Rectocele 07/15/2006 01/04/2009 documented as of this encounter (statuses as of 01/23/2023) [facility] History of Past illness Narrative* Problem Noted Date Diagnosed Date Resolved Date Abnormal mammogram 05/21/2016 7 Dyspareunia 01/04/2009 01/11/2010 Vaginal enterocele, congenital or acquired 07/15/2006 01/04/2009 Cystocele, midline 07/15/2006 9 Rectocele 07/15/2006 01/04/2009 documented as of this encounter (statuses as of 03/15/2023) [facility] History of Past illness Narrative* Problem Noted Date Diagnosed Date Resolved Date Abnormal mammogram 05/21/2016 7 Dyspareunia 01/04/2009 01/11/2010 Vaginal enterocele, congenital or acquired 07/15/2006 01/04/2009 Cystocele, midline 07/15/2006 9 Rectocele 07/15/2006 01/04/2009 documented as of this encounter (statuses as of 03/15/2023) [facility] History of Past illness Narrative* Problem Noted Date Diagnosed Date Resolved Date Abnormal mammogram 05/21/2016 7 Dyspareunia 01/04/2009 01/11/2010 Vaginal enterocele, congenital or acquired 07/15/2006 01/04/2009 Cystocele, midline 07/15/2006 9 Rectocele 07/15/2006 01/04/2009 documented as of this encounter (statuses as of 03/15/2023) [facility] History of Past illness Narrative* Problem Noted Date Diagnosed Date Resolved Date Abnormal mammogram 05/21/2016 7 Dyspareunia 01/04/2009 01/11/2010 Vaginal enterocele, congenital or acquired 07/15/2006 01/04/2009 Cystocele, midline 07/15/2006 9 Rectocele 07/15/2006 01/04/2009 documented as of this encounter (statuses as of 03/28/2023) [facility] History of Past illness Narrative* Problem Noted Date Diagnosed Date Resolved Date Abnormal mammogram 05/21/2016 7 Dyspareunia 01/04/2009 01/11/2010 Vaginal enterocele, congenital or acquired 07/15/2006 01/04/2009 Cystocele, midline 07/15/2006 9 Rectocele 07/15/2006 01/04/2009 documented as of this encounter (statuses as of 04/01/2023) [facility] History of Past illness Narrative* Problem Noted Date Diagnosed Date Resolved Date Abnormal mammogram 05/21/2016 7 Dyspareunia 01/04/2009 01/11/2010 Vaginal enterocele, congenital or acquired 07/15/2006 01/04/2009 Cystocele, midline 07/15/2006 9 Rectocele 07/15/2006 01/04/2009 documented as of this encounter (statuses as of 04/10/2023) [facility] History of Past illness Narrative* Problem Noted Date Diagnosed Date Resolved Date Abnormal mammogram 05/21/2016 7 Dyspareunia 01/04/2009 01/11/2010 Vaginal enterocele, congenital or acquired 07/15/2006 01/04/2009 Cystocele, midline 07/15/2006 9 Rectocele 07/15/2006 01/04/2009 documented as of this encounter (statuses as of 04/15/2023) [facility] History of Past illness Narrative* Problem Noted Date Diagnosed Date Resolved Date Abnormal mammogram 05/21/2016 7 Dyspareunia 01/04/2009 01/11/2010 Vaginal enterocele, congenital or acquired 07/15/2006 01/04/2009 Cystocele, midline 07/15/2006 9 Rectocele 07/15/2006 01/04/2009 documented as of this encounter (statuses as of 04/15/2023) [facility] note* Diagnosis Encounter for gynecological examination (general) (routine) without abnormal findings- Primary Encounter for screening mammogram for malignant neoplasm of breast Other screening mammogram [facility]* Diagnosis Osteoporosis without current pathological fracture, unspecified osteoporosis type- Primary [facility] Diagnosis 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 [facility] Diagnosis Abnormal mammogram Abnormal mammogram, unspecified [facility]* Diagnosis Encounter for screening mammogram for malignant neoplasm of breast Other screening mammogram [facility] Diagnosis Osteoporosis without current pathological fracture, unspecified osteoporosis type documented in this encounter [facility] note* Diagnosis 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 documented in this encounter [facility] note* Diagnosis 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 Encounter for screening mammogram for breast cancer documented in this encounter [facility] for referral (narrative)* Diagnostic Procedure Only (Routine) - Pending Review Specialty Diagnoses / Procedures Referred By Max maloney Referred To Contact [facility] Diagnoses Encounter for screening mammogram for malignant neoplasm of breast Procedures FRANCISCO SCREENING W HEIDE SCREENING DIGITAL BREAST TOMOSYNTHESIS BI SCREENING MAMMOGRAPHY BI 2-VIEW BREAST INC CAD Xavi Joshi MD [address] [place] [id number] [facility] [address] [place] [address] Referral ID Status Reason Start Date Expiration Date Visits Requested Visits Authorized [id number] Pending Review Auto-Generat ed Referral 04/15/2022 05/15/2023 1 1 [facility] for referral (narrative)* Diagnostic Procedure Only (Routine) - Closed Specialty Diagnoses / Procedures Referred By Max maloney Referred To Contact [facility] Diagnoses Encounter for screening mammogram for malignant neoplasm of breast Procedures FRANCISCO SCREENING W HEIDE SCREENING DIGITAL BREAST TOMOSYNTHESIS BI SCREENING MAMMOGRAPHY BI 2-VIEW BREAST INC CAD Xavi Joshi MD [address] [place] [address] [facility] [address] [place] [address] Referral ID Status Reason Start Date Expiration Date V isits Requested Visits Authorized [id number] Closed Auto-Generate d Referral 04/15/2022 05/15/2023 1 1 [facility] for referral (narrative)* Diagnostic Procedure Only (Routine) - Pending Review Specialty Diagnoses / Procedures Referred By Max maloney Referred To Contact [facility] Diagnoses Ductal carcinoma in situ (DCIS) of left breast Encounter for screening mammogram for breast cancer Procedures FRANCISCO SCREENING W HEIDE SCREENING DIGITAL BREAST TOMOSYNTHESIS BI SCREENING MAMMOGRAPHY BI 2-VIEW BREAST INC CAD Francesco Blair DO [address] [place] [address] [facility] [address] [place] [address] Referral ID Status Reason Start Date Expiration Date Visits Requested Visits Authorized [id number] Pending Review Auto-Generat ed Referral 04/14/2023 05/13/2024 1 1 [facility] for visit Narrative* Diagnostic Procedure Only (Routine) - Closed Specialty Diagnoses / Procedures Referred By Max maloney Referred To Contact [facility] Diagnoses Abnormal mammogram Procedures FRANCISCO DIAGNOSTIC LEFT DIAGNOSTIC MAMMOGRAPHY COMPUTER-AIDED DETCJ UNI Xavi Joshi MD [address] [place] [address] [facility] [address] [place] [address] Referral ID Status Reason Start Date Expiration Date V isits Requested Visits Authorized [id number] Closed Auto-Generate d Referral 09/26/2022 10/26/2023 1 1 [facility] for visit Narrative* Diagnostic Procedure Only (Routine) - Closed Specialty Diagnoses / Procedures Referred By Max maloney Referred To Contact [facility] Diagnoses Encounter for screening mammogram for malignant neoplasm of breast Procedures FRANCISCO SCREENING W HEIDE SCREENING DIGITAL BREAST TOMOSYNTHESIS BI SCREENING MAMMOGRAPHY BI 2-VIEW BREAST INC CAD Xavi Joshi MD [address] [place] [address] [facility] [address] [place] [address] Referral ID Status Reason Start Date Expiration Date V isits Requested Visits Authorized [id number] Closed Auto-Generate d Referral 04/15/2022 05/15/2023 1 1 [facility] Advance Directives No Advanced Directives Records FoundDocuments on File Type Date Recorded 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 Exchange Consultant 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 anation Advance Directive(s) 03/09/2017 7:23 AM Documents on File Type Date Recorded Patient Exchange Consultant Expl anation Advance Directive(s) 03/09/2017 7:23 AM Summary Purpose Family History No Family History Records Found Additional Source Comments Source Comments (unrecognize d section and content) In the event this informatio n is protected by the Federal Confidentiality of Alcohol and Drug Abuse Patient Records regulations: The Federal rules restrict any use of the information to criminally investigate or prosecute any alcohol or drug abuse patient.[facility] the event this information is protected by the Federal Confidentiality of Alcohol and Drug Abuse Patient Records regulations: The Federal rules restrict any use of the information to criminally investigate or prosecute any alcohol or drug abuse patient.[facility] the event this information is protected by the Federal Confidentiality of Alcohol and Drug Abuse Patient Records regulations: The Federal rules restrict any use of the information to criminally investigate or prosecute any alcohol or drug abuse patient.[facility] the event this information is protected by the Federal Confidentiality of Alcohol and Drug Abuse Patient Records regulations: The Federal rules restrict any use of the information to criminally investigate or prosecute any alcohol or drug abuse patient.[facility] the event this information is protected by the Federal Confidentiality of Alcohol and Drug Abuse Patient Records regulations: The Federal rules restrict any use of the information to criminally investigate or prosecute any alcohol or drug abuse patient.[facility] the event this information is protected by the Federal Confidentiality of Alcohol and Drug Abuse Patient Records regulations: The Federal rules restrict any use of the information to criminally investigate or prosecute any alcohol or drug abuse patient.[facility] the event this information is protected by the Federal Confidentiality of Alcohol and Drug Abuse Patient Records regulations: The Federal rules restrict any use of the information to criminally investigate or prosecute any alcohol or drug abuse patient.[facility] the event this information is protected by the Federal Confidentiality of Alcohol and Drug Abuse Patient Records regulations: The Federal rules restrict any use of the information to criminally investigate or prosecute any alcohol or drug abuse patient.[facility] the event this information is protected by the Federal Confidentiality of Alcohol and Drug Abuse Patient Records regulations: The Federal rules restrict any use of the information to criminally investigate or prosecute any alcohol or drug abuse patient.[facility] the event this information is protected by the Federal Confidentiality of Alcohol and Drug Abuse Patient Records regulations: The Federal rules restrict any use of the information to criminally investigate or prosecute any alcohol or drug abuse patient.[facility] the event this information is protected by the Federal Confidentiality of Alcohol and Drug Abuse Patient Records regulations: The Federal rules restrict any use of the information to criminally investigate or prosecute any alcohol or drug abuse patient.[facility] the event this information is protected by the Federal Confidentiality of Alcohol and Drug Abuse Patient Records regulations: The Federal rules restrict any use of the information to criminally investigate or prosecute any alcohol or drug abuse patient.[facility] the event this information is protected by the Federal Confidentiality of Alcohol and Drug Abuse Patient Records regulations: The Federal rules restrict any use of the information to criminally investigate or prosecute any alcohol or drug abuse patient.[facility] the event this information is protected by the Federal Confidentiality of Alcohol and Drug Abuse Patient Records regulations: The Federal rules restrict any use of the information to criminally investigate or prosecute any alcohol or drug abuse patient.[facility] Reason for Visit (unrecogniz ed section and content) Reason Onset Date Comments Question 05/23/2022 Reason Comments Orders Reason Comments Patient Update Reason Comments Appointment Reason Comments New Patient Reason Comments Established Patient Reason Comments Appointment f/u on decision abou t radiation Care Teams (unrecognized sec tion and content) Aquatics Specialist Relationship Specialty Start Date End Date Kervin Leon DO [address] [place] [address] PCP - General Family Medicine 04/28/16 Sheng Valdez MD, [address] [place] [address] Physician Radiation Oncology 06/13/16 Aquatics Specialist Relationship Specialty Start Date End Date Kervin Leon DO [address] [place] [address] PCP - General Family Medicine 04/28/16 Sheng Valdez MD, [address] [place] [address] Physician Radiation Oncology 06/13/16 Aquatics Specialist Relationship Specialty Start Date End Date Kervin Leon DO [address] [place] [address] PCP - General Family Medicine 04/28/16 Sheng Valdez MD, [address] [place] [address] Physician Radiation Oncology 06/13/16 Aquatics Specialist Relationship Specialty Start Date End Date Kervin Leon DO [address] [place] [address] PCP - General Family Medicine 04/28/16 Sheng Valdez MD, [address] [place], [place] [id number] Physician Radiation Oncology 06/13/16 Aquatics Specialist Relationship Specialty Start Date End Date Kervin Leon DO [address] [place] [address] PCP - General Family Medicine 04/28/16 Sheng Valdez MD, [address] [place] [address] Physician Radiation Oncology 06/13/16 Aquatics Specialist Relationship Specialty Start Date End Date Kervin Leon DO [address] [place] [address] PCP - General Family Medicine 04/28/16 Sheng Valdez MD, [address] [place] [address] Physician Radiation Oncology 06/13/16 Aquatics Specialist Relationship Specialty Start Date End Date Kervin Leon DO [address] [place] [address] PCP - General Family Medicine 04/28/16 Sheng Valdez MD, [address] [place], [place] [address] [phone] Physician Radiation Oncology 06/13/16 Aquatics Specialist Relationship Specialty Start Date End Date Kervin Leon DO [address] [place] [address] PCP - General Family Medicine 04/28/16 Sheng Valdez MD, [address] [place] [address] Physician Radiation Oncology 06/13/16 Aquatics Specialist Relationship Specialty Start Date End Date Kervin Leon DO [address] [place] [place] [address] PCP - General Family Medicine 04/28/16 Sheng Valdez MD, MD [address] [place] [id number] Physician Radiation Oncology 06/13/16 INFORMATION SOURCE (unrecogn ized section and content) FOR RECORDS PERTAINING TO PATIENTS WHO ARE OR HAVE BEEN ENROLLED IN A CHEMICAL DEPENDENCY/SUBSTANCEABUSE PROGRAM, SOME INFORMATION MAY BE OMITTED. This clinical summary was aggregated from multiple sources. Caution should be exercised in using it in the provision of clinical care. This summary normalizes information from multiple sources, and as a consequence, information in this document may materially change the coding, format and clinical context of patient data. In addition, data may be omitted in some cases. CLINICAL DECISIONS SHOULD BE BASED ON THE PRIMARY CLINICAL RECORDS. [employer] provides no warranty or guarantee of the accuracy or completeness of information in this document.
[2023-06-06 09:31] LABS: Cholesterol 213 mg/dL (200); High Density Lipoprotein 80 mg/dL; Triglycerides 129 mg/dL; Very Low Density Lipoprotein 26 mg/dL (5-40)
[2023-06-08 08:21] LABS: Vitamin D,25 Hydroxy 72.7 ng/mL
== END | disposition home or self-care (01) ==
LOC: LAB 07:33
PROVIDERS: PCP Family Medicine; Referring Provider Family Medicine; Visit Provider Family Medicine
DX: I65.29 Occlusion and stenosis of unspecified carotid artery (principal); M81.0 Age-related osteoporosis without current pathological fracture
CPT/HCPCS: 36415; 80061; 82306

== ENCOUNTER → 2023-11-13 | Outpatient (CLI) | payer MEDICARE, OTHER, SELFPAY ==
--- NOTE | 2023-11-13 10:33 | BI_ITS ---
MAMMOGRAPHY - BILATERAL SCREENING 3-D TOMOSYNTHESIS REASON FOR EXAM: Female, 82 years old. SCREENING PERTINENT HISTORY: No significant family history. TECHNIQUE: 2-D mammograms and 3-D Tomosynthesis of the breast (s) were performed. CAD was performed. COMPARISON: 09/25/2022 FINDINGS: The breast composition is Extermely dense tissue. Scattered benign calcifications are seen. No dense spiculated masses or suspicious microcalcifications are identified. No architectural distortion is identified. There is no skin thickening or retraction. There has been no significant change since the prior study. BI/SCRN MAMM (CAD)W/HEIDE BILAT IMPRESSION: No mammographic signs of malignancy. Routine yearly mammograms recommended. ASSESSMENT CATEGORY: BIRADS Category 1: Negative. A letter regarding these results will be sent to the patient by the facility within 30 days. FOLLOW UP RECOMMENDATION: Yearly follow up mammogram recommended. (A) Approximately 10% of breast cancers are not detected by mammography. A normal mammogram should not delay biopsy of a clinically suspicious abnormality. Electronically Signed: Mark Mann MD at 15:30 EDT ,
== END | disposition home or self-care (01) ==
LOC: OPBI 10:31
PROVIDERS: PCP Family Medicine; Referring Provider Internal Medicine Hematology & Oncology; Visit Provider Internal Medicine Hematology & Oncology
DX: Z12.31 Encounter for screening mammogram for malignant neoplasm of breast (principal)
CPT/HCPCS: 77063; 77067

== ENCOUNTER → 2024-03-11 | Outpatient (CLI) | payer MEDICARE, OTHER, SELFPAY ==
--- NOTE | 2024-03-11 09:40 | CDU_ITS ---
Reason For Study: Carotid Stenosis Rt. Velocities/BP Lt. Velocities/BP Prox CCA 92/13 cm/sec. Prox CCA 91/17 cm/sec. Mid CCA 75/16 cm/sec. Mid CCA 73/19 cm/sec. Dist CCA 64/16 cm/sec. Dist CCA 62/20 cm/sec. Prox ICA 54/12 cm/sec. Prox ICA 80/16 cm/sec. Mid ICA 71/18 cm/sec. Mid ICA 81/21 cm/sec. Dist ICA 150/43 cm/sec. Dist ICA 95/29 cm/sec. Rt. ICA/CCA = 2.0. Lt. ICA/CCA = 1.3. Prox ECA 93/11 cm/sec. Prox ECA 82/9 cm/sec. Rt. Vert. 63/11 cm/sec. Lt. Vert. 50/17 cm/sec. Right Extracranial There is heterogeneous, irregular atherosclerotic plaque noted in the right common carotid artery. There is heterogeneous, irregular atherosclerotic plaque noted in the right internal carotid artery. There is intimal thickening but no significant atherosclerotic plaque noted in the right external carotid artery. Antegrade flow is noted in the right vertebral artery. Left Extracranial There is heterogeneous, irregular atherosclerotic plaque noted in the left common carotid artery. There is intimal thickening but no significant atherosclerotic plaque noted in the left internal carotid artery. There is heterogeneous, irregular atherosclerotic plaque noted in the left external carotid artery. Antegrade flow is noted in the left vertebral artery. Procedure Carotid Duplex [id number]. This is a Carotid Duplex examination using B-mode, color flow and specral Doppler. Exam performed in department. VL/Carotid Duplex Ultrasound Interpretation Summary Mild (<50%) stenosis right extracranial internal carotid. Normal left extracranial internal carotid. Patent and antegrade vertebrals bilaterally. Ordering Physician: Driss Gonsalez Referring Physician: Dexter Leon Performed By: Sharon Hand, RDCS, RVT
== END | disposition home or self-care (01) ==
LOC: CVS 09:39
PROVIDERS: PCP Family Medicine; Referring Provider Surgery Trauma Surgery; Visit Provider Surgery Trauma Surgery
DX: I65.23 Occlusion and stenosis of bilateral carotid arteries (principal)
CPT/HCPCS: 93880

== ENCOUNTER → 2024-07-09 | Outpatient (CLI) | payer MEDICARE, OTHER, SELFPAY ==
[2024-07-09 08:45] LABS: Absolute Lymphocyte Count 1.14 X10^3/uL (0.83-4.51); Absolute Neutrophil Count 2.6 X10^3/uL (2.0-7.7); Basophil# 0.03 X10^3/uL; Basophil% 0.7 % (0-1); Eosinophils% 2.4 % (0-5); Hematocrit 34.5 % (37-47); Hemoglobin 11.6 g/dL (12.0-15.0); Lymphocyte # 1.14 X10^3/ul (0.83-4.51); Mean Corp Hgb Conc 33.6 g/dL (32-36); Mean Corpuscular Hgb 30.4 pg (27.0-32.0); Mean Corpuscular Volume 90.6 fL (81-99); Mean Platelet Vol. 9.6 fl (6.2-12.0); Monocyte# 0.35 X10^3/uL; Monocyte% 8.3 % (0-10); NRBC Flagged by Analyzer 0 % (0-5); Neutrophil # 2.59 X10^3/uL (2.7-7.7); Neutrophil % 61.4 % (47-70); Platelet Count 196 K/mm3 (150-450); RBC Distribution Width CV 12.8 % (11.6-14.6); RBC Distribution Width SD 42.4 fl (35.1-43.9); Red Blood Count 3.81 M/mm3 (4.2-5.4); White Blood Count 4.2 K/mm3 (4.4-11.0)
[2024-07-09 09:53] LABS: ALB/GLOB Ratio 1.6 RATIO (0.9-2.4); AST(SGOT) 20 U/L (<=31); Alanine Aminotransfer ALT/SGPT 12 U/L (<=34); Alkaline Phosphatase 62 U/L (35-104); Anion Gap 10 (5-15); BUN 21 mg/dL (4-19); BUN/Creat Ratio 28.2 RATIO (10-20); Carbon Dioxide 25.2 mmol/L (22.0-29.0); Chloride 107 mmol/L (96-108); Cholesterol 194 mg/dL (<=200); Creatinine, Serum 0.75 mg/dL (0.70-1.20); EST Glomerular Filtration Rate 80 (>60); Globulin 2.4 g/dL (2.2-4.2); Glucose 88 mg/dL (70-99); High Density Lipoprotein 81 mg/dL; Low Density Lipoprotein Calc. 91 mg/dL; Potassium 3.6 mmol/L (3.3-5.1); Protein, Total 6.4 g/dL (5.9-8.4); Sodium Level 142 mmol/L (133-145); Total Bilirubin 0.43 mg/dL (0.00-1.30); Triglycerides 110 mg/dL; Very Low Density Lipoprotein 22 mg/dL (5-40); cholesterol:hdl ratio screen 2.41
== END | disposition home or self-care (01) ==
PROVIDERS: PCP Family Medicine; Referring Provider Family Medicine; Visit Provider Family Medicine
DX: E78.5 Hyperlipidemia, unspecified (principal); I65.23 Occlusion and stenosis of bilateral carotid arteries; M81.0 Age-related osteoporosis without current pathological fracture; J31.0 Chronic rhinitis; Z51.81 Encounter for therapeutic drug level monitoring
CPT/HCPCS: 36415; 80053; 80061; 82306; 85025

== ENCOUNTER → 2024-11-14 | Outpatient (CLI) | payer MEDICARE, OTHER, SELFPAY | END | disposition home or self-care (01) | LOC: OPBI 09:38 | PROVIDERS: PCP Family Medicine; Referring Provider Nurse Practitioner; Visit Provider Nurse Practitioner | DX: Z12.31 Encounter for screening mammogram for malignant neoplasm of breast (principal); D05.12 Intraductal carcinoma in situ of left breast | CPT/HCPCS: 77063; 77067 ==